=== PATIENT | female | born 2000 | race Caucasian/White ===

== ENCOUNTER 2022-08-20 00:17 | Emergency (ER) | payer BC, SELFPAY ==
--- NOTE | 2022-08-20 00:23 | ED_ITS ---
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 Pt has taken no illicit substances and has not hurt herself in any way. Pt would like to be assessed for mental health issues to put her roomates at ease. No history of suicidal ideation or attempts at suicide. She does not use alcohol. Pt sadness has been worsening tonight. Related Data Home Medications Medication Instructions Recorded Confirmed No Known Home Medications 08/20/22 08/20/22 Allergies Allergy/AdvReac Type Severity Reaction Status Date / Time No Known Drug Allergies Allergy Verified 08/20/22 00:38 Review of Systems Status of ROS: Reports: 10 or more systems reviewed and unremarkable except as noted in History and below [facility] Medical History (Updated 08/20/22 @ 00:41 by Kavin Suazo MD) Anxiety Depression Surgical History (Updated 08/20/22 @ 00:40 by Ruiz Fowler RN) No significant past surgical history Exam Narrative: Exam Narrative: EXAM GENERAL: Patient appears comfortable and well. Very emotional. EYES: No scleral icterus. ENT: Tympanic membranes and oropharynx normal. THYROID: no thyroid nodules or thyromegaly. LYMPH: No supraclavicular or cervical lymphadenopathy. SKIN: Visible skin seen during exam normal or with benign process only. EXT: No dependent lower extremity pedal edema. HEART: Regular rate and rhythm with no murmurs, rubs, or gallops. LUNGS: Clear to auscultation bilaterally with no crackles or wheezes. ABD: Soft, non tender, non distended. PSYCH: Good eye contact, speech is not pressured. Const: Vital Signs, click to edit/add: Vital Signs - 24 hr 08/20/22 00:34 Temperature 98.1 F Pulse Rate [Right Pulse Oximeter] 105 H Respiratory Rate 18 Blood Pressure [Ri ght Upper Arm] 125/84 Pulse Oximetry 99 Oxygen Delivery Me thod Room Air Course Course Hospital Course: Pt seen and examined. Mental Health consultation requested. Reevaluation(s) Reevaluation #1: Lengthy delay for DEC. Pt has no interest in harming herself and would like to follow up as an outpt. Time: 00:37 Vital Signs Vital signs: Initial Vital Signs Temperature 98.1 F 08/20/22 00:34 Temperature Source Temporal Artery Scan 08/20/22 00:34 Pulse Rate 105 H 08/20/22 00:34 Respiratory Rate 18 08/20/22 00:34 Blood Pressure 125/84 08/20/22 00:34 Blood Pressure Mean 97 08/20/22 00:34 Blood Pressure Position Sitting 08/20/22 00:34 Pulse Oximetry 99 08/20/22 00:34 Oxygen Delivery Method 08/20/22 00:34 Vital Signs Temperature 98.1 F 08/20/22 00:34 Pulse Rate 105 H 08/20/22 00:34 Respiratory Rate 18 08/20/22 00:34 Blood Pressure 125/84 08/20/22 00:34 Pulse Oximetry 99 08/20/22 00:34 Oxygen Delivery Method 08/20/22 00:34 Temperature 98.1 F 08/20/22 00:34 Pulse Rate 105 H 08/20/22 00:34 Respiratory Rate 18 08/20/22 00:34 Blood Pressure 125/84 08/20/22 00:34 Pulse Oximetry 99 08/20/22 00:34 Oxygen Delivery Method 08/20/22 00:34 MDM - Psych MDM Narrative Medical decision making narrative: Pt presents feeling sad that she has to rehome her dog. Pt not suicidal. No substance use. Pt and friend guarantee safety. They would like to go home to follow up as an outpt. I think this is reasonable as pt has no history of suicidality, is not suicidal at this time and is not impaired. Pt released to the care of her friend. Discharge Plan Discharge Clinical Impression: Depression Condition: Stable Instructions: Depression (ED) Additional Instructions: Return if symptoms worsen [facility] at [facility] Activity Level: No Restrictions Discharge Diet: Regular Prescriptions: No Action No Known Home Medications Stand Alone Forms: [employer] Info Instructions
[2022-08-20 00:34] VITALS: BP 125/84; PULSE 105; RESP 18; TEMP 36.7; O2SAT 99; BMI 22.4
--- OUTSIDE RECORDS SUMMARY | 2022-08-20 00:43 | XMS_ITS | Encounter Summary ---
:2000 Author Organization [facility] Address [address] [place] [address] Care Team Providers Name Role Phone Sandra Catalan M.D. Primary Care Provider Reason for Visit Reason Comments Annual Exam sports physical for college, track Appointment Request (Routine) - Closed Specialty Diagnoses / Procedures Referred By Contact Refer red To Contact Family Medicine Referral ID Status Reason Start Date Expiration Date Visits Requ ested Visits Authorized [id number] Closed 03/11/2020 03/11/2021 1 1 Encounter Details Date Type Department Care Team Description 05/03/2020 Comprehensive Visit Department of Linda Apple Maintenance Examination Adult (Primary Dx); Family Medicine, A, P.A.-C. Sport Comprehensive Exam; [facility], in [address] [place] Depression Major Recurrent Mild (HCC); [place], [place] Anxiety Generalized Disorder [address] [place] [id number] [place], [place] [phone] (Work) [phone] Social History Tobacco Use Types Packs/Day Years Used Date Smoking Tobacco: Never Smokeless Tobacco: Never Alcohol Use Standard Drinks/Week Comments Yes 0 (1 standard drink = 0.6 oz pure alcoho l) Alcohol Habits Answer Date Recorded How often do you have a drink containing alcohol? Monthly or less 04/05/2022 How many drinks containing alcohol do you have on a 3 or 4 04/05/2022 typical day when you are drinking? How often do you have six or more drinks on one Less than mo nthly 04/05/2022 occasion? Social Isolation Answer Date Recorded In a typical week, how many times do you More than three ollie es a week 04/05/2022 talk on the phone with family, friends, or neighbors? How often do you get together with friends Twice a week 04/05/2022 or relatives? How often do you attend protestant or More than 4 times per year 04/05/2022 buddhist services? Do you belong to any clubs or Yes 04/05/2022 organizations such as protestant groups, unions, fraternal or athletic groups, or school groups? How often do you attend meetings of the More than 4 times pe r year 04/05/2022 clubs or organizations you belong to? Are you now , , , Never 04/05/2022 , never or living with a partner? Physical Activity Answer Date Recorded On average, how many days per week do you engage in moderate to 7 days 04/05/2022 strenuous exercise (like walking fast, running, jogging, dancing, swimming, biking, or other activities that cause a light or heavy sweat)? On average, how many minutes do you engage in exercise at th is 90 min 04/05/2022 level? Stress Answer Date Recorded Do you feel stress - tense, restless, nervous, or anxious, o r Very much 04/05/2022 unable to sleep at night because your mind is troubled all the time - these days? Financial Resource Strain Answer Date Recorded How hard is it for you to pay for the very basics like Not h gina at all 04/05/2022 food, housing, medical care, and heating? Intimate Partner Violence Answer Date Recorded Within the last year, have you been afraid of your No 04/05/2022 partner or ex-partner? Within the last year, have you been humiliated or No 04/05/2022 emotionally abused in other ways by your partner or ex-partner? Within the last year, have you been kicked, hit, No 04/05/2022 slapped, or otherwise physically hurt by your partner or ex-partner? Within the last year, have you been raped or forced to Patie nt refused 04/05/2022 have any kind of sexual activity by your partner or ex-partner? Food Insecurity Answer Date Recorded Within the past 12 months, you worried that your food would Never true 04/05/2022 run out before you got money to buy more. Within the past 12 months, the food you bought just didn't N ever true 04/05/2022 last and you didn't have money to get more. Transportation Needs Answer Date Recorded In the past 12 months, has lack of transportation kept you f rom No 04/05/2022 medical appointments or from getting medications? In the past 12 months, has lack of transportation kept you f rom No 04/05/2022 meetings, work, or getting things needed for daily living? Housing Stability Answer Date Recorded In the last 12 months, was there a time when you were not ab le No 04/05/2022 to pay the mortgage or rent on time? In the last 12 months, how many places have you lived? 2 04/05/2022 In the last 12 months, was there a time when you did not hav e a No 04/05/[address] to sleep or slept in a retirement (including now)? Education Answer Date Recorded What is the highest level of school you have Some college, n o degree 04/29/2020 completed or the highest degree you have received? Sex Assigned at Date Recorded Not on file documented as of this encounter Last Filed Vital Signs Vital Sign Reading Time Taken Comments Blood Pressure 122/84 05/03/2020 3:15 PM CDT Pulse 82 05/03/2020 3:15 PM CDT Temperature 36.9 ??C (98.4 ??F) 05/03/2020 3:15 PM CDT Respiratory Rate - - Oxygen Saturation - - Inhaled Oxygen Concentration - - Weight 69.1 kg (152 lb 5.4 oz) 05/03/2020 3:15 PM CDT Height 170 cm (5' 6.93) 05/03/2020 3:15 PM CDT Body Mass Index 23.91 05/03/2020 3:15 PM CDT Body Mass Index Percentile 73.37 % 05/03/2020 3:15 PM CD T Growth Chart: [facility] (Girls, 2-20 Years) documented in this encounter Patient Instructions Patient InstructionsLinda Apple P.A.-C. - 05/03/2020 3:30 PM CDT We completed a sports physical today. You are up to date on all of your preventative care. Good luck in the Fall! documented in this encounter H&P Notes Linda Apple P.A.-C. - 05/03/2020 3:30 PM CDT SUBJECTIVE Macy Isidro is a 19 y.o. female who is here for a well child visit. History was providedby the patient. Current concerns: None. Diet: Reviewed and discussed.. Elimination: Reviewed and discussed.. Sleep Schedule: Reviewed and discussed.. School Performance: Reviewed and discussed.. The following screenings were completed: Vision PHQ-9 Total Score (max 27): 9 (05/03/20 1647) PHQ-2 Score: 2 The following portions of the patient's history were reviewed and updated as appropriate: allergies, current medications, family history, medical history, social history, surgical history, problem list, vital signs, growth curves and pre-visit questionnaires REVIEW OF SYSTEMS Constitutional: Positive for fatigue. Skin: Positive for change in mole or skin spot. Gastrointestinal: Positive for abdominal (belly) pain or cramping, constipation and diarrhea. Neurological: Positive for light-headedness, excessive daytime sleepiness and headaches. Psychiatric/Behavioral: Positive for excessive daytime sleepiness/tiredness and not being able to stop or control worrying over past two weeks. The following systems were negative: Eyes, ENT, CV, Respiratory, , Hematologic, Musculoskeletal OBJECTIVE PHYSICAL EXAM Wt 69.1 kg Ht 170 cm BMI 23.91 kg/m?? HC: - BP 122/84 (BP Location: Left arm, Patient Position: Sitting, Cuff Size: Regular) Blood pressure percentiles are not available for patients who are 18 years or older. General Appearance: Alert, interactive, well-appearing Head: Normocephalic, atraumatic Eyes: Conjunctivae clear, EOM intact, PERRL, fundi normal Ears: External ears and canals normal, TM's normal landmarks bilaterally Nose: Nares normal, mucosa normal, no drainage Mouth/Throat: Moist mucosa, no significant tonsils hypertrophy, erythema, or exudate Neck: Supple, full range of motion, no thyromegaly Chest: Good air movement bilaterally, clear to auscultation Cardiovascular: Regular rate and rhythm; normal S1 and S2; no murmurs, normal perfusion Abdomen: Soft, non-tender, non-distended, no organomegaly or masses, normal bowel sounds Musculoskeletal: 14-point general exam shows no significant asymmetry, apparent weakness, or decreased range of motion in the neck, shoulders, elbows, forearms, wrists, hands, knees, ankles or spine; hip rotation is symmetric and pain free Skin: Normal color, texture, and turgor; no lesions Lymph nodes: No significant adenopathy Neurologic: Normal tone, no focal deficits or weakness in general movements, symmetric DTR's Gait: Normal and appropriate for age ASSESSMENT / PLAN #1 Health Maintenance Examination Adult Healthy 19 y.o. female child. Development: appropriate for age. 1. Age-appropriate anticipatory guidance discussed. Educational materials provided. Health promotionand safety topics discussed. Abuse/neglect, functional status, nutrition and pain assessed. Results of screening discussed and concerns addressed. Dental referral recommended. 2. Growth parameters are noted and are appropriate for age. BMI is not above 85th percentile for ageand sex. The patient/family was counseled regardin-2-1-0 Everyday program, nutrition and physical activity. 3. Patient is up to date. No vaccines given. 4. Sports Physical completed. Cleared for 3 years. Paperwork routed to HIMs. 5. Patient's PHQ9 is 9, indicating mild recurrent major depressive disorder. ANNALISE-7 is 18, indicatingsevere generalized anxiety disorder. Patient reports that she is nervous about attending college in the fall. We did discuss the pathophysiology/etiology of depression/anxiety. We discussed the role ofSSRIs in the treatment of depression/anxiety. At this time, patient declines medication intervention. She also declines referral to therapy. The patient is nervous about proceeding with treatment for depression/anxiety, as she is concerned it may make her parents, ???mad.?? I have strongly recommended she reach out to me if she would like to pursue treatment, in the future. She denies any suicidal or homicidal ideation. Recommended prompt evaluation the emergency department, if that should occur. 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 PCP - General 04/06/20 05/03/20 [address] [id number] documented as of this encounter
--- OUTSIDE RECORDS SUMMARY | 2022-08-20 00:43 | XMS_ITS | Clinical Summary ---
:2000 Author Organization [facility] [place] [address] Care Team Providers Name Role Phone Pcp, No Primary Care Provider Unavailable Allergies Not on File Medications No known medications Active Problems No known active problems Encounters Date Type Specialty Care Team Description 06/08/2022 Orders Only Lab, [facility] 06/08/2022 Travel 06/08/2022 Orders Only Daniel Palmer MD <No scans attached> from Last 3 Months Social History Tobacco Use Types Packs/Day Years Used Date Never Smoker Smokeless Tobacco: Never Used Alcohol Use Standard Drinks/Week Comments Not Currently 0 (1 standard drink = 0.6 oz pure alcoho l) Sex Assigned at Date Recorded Not on file Obstetrics History Plan of Treatment Health Maintenance Due Date Last Done Comments HPV series for age 9-26 (1 - 2012 2-dose series) Tdap 2012 HIV for age 15-65 2016 BMI (ht and wt on same day) 2019 for age 18+ Hepatitis C screening for age 0805/12/2019 18-79 Tetanus booster 2021 COVID-19 vaccine series (4 - 11/16/2021 09/21/2021, Booster for Pfizer series) 02/09/2021, 01/19/2021 Pap test for age 21-65 2022 Influenza for age 9-49 05/31/2022 Depression screening for age 0401/05/2023 01/05/2022 12+ Meningococcal series for age Aged Out No longer eligible based 11-21 on patient's age to complete this to pic Procedures Procedure Name Priority Date/Time Associated Diagnosis Comme nts SICKLE CELL TEST Routine 06/08/2022 1:28 PM Encounter for Resu lts for this CDT sickle-cell procedure are i n screening the results section. from Last 3 Months Results SICKLE CELL TEST (06/08/2022 1:28 PM CDT) Analysis Performed At [facility] Time Signature SICKLE CELL Negative Negative 06/09/2022 [facility] TEST 10:05 AM CDT [facility] Specimen Anatomical Collection Method / Collection Time Recei eber Time (Source) Location / Volume Laterality Blood BLOOD SPECIMEN / Venipuncture / 06/08/2022 1:28 2021 1:28 Unknown Unknown PM CDT PM CDT Narrative [facility] - 06/09/2022 10:05 AM CDT This test is a screening procedure only and does not distinguish between Sickle Cell Disease (S/S) and Sickle Cell Trait (A/S ). All positive or weak positive results should be further evaluated with hemoglo bin electrophoresis. False negative results can occur with low levels of HbS (neonat es, recent transfusion, congenitally low HbS, and with Hgb levels < or = to 8 g/dL). F alse positive results may be seen with immunoglobulin interference (multiple my eloma, cryoglobulinemia). Daniel Palmer MD HEMATOLOGY Performing Organization Address City/State/ZIP Code Phon e Number [facility] [address] 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
--- OUTSIDE RECORDS SUMMARY | 2022-08-20 00:43 | XMS_ITS | Encounter Summary ---
:2000 Author Organization [facility] Address [address] [place] [address] Care Team Providers Name Role Phone Brody Mccray M.D. Primary Care Provider Reason for Visit Outpatient (Routine) - Closed Specialty Diagnoses / Procedures Referred By Contact Refer red To Contact Sports Medicine Diagnoses Strain Hamstring [facility] Marial[facility] M[facility] [address] [place] [address] Referral ID Status Reason Start Date Expiration Date Visits Requ ested Visits Authorized [id number] Closed 04/28/2019 04/27/2020 1 1 Encounter Details Date Type Department Care Team Description 04/29/2019 Comprehensive Visit Department of Andrew Dowell M .D., M.S. Strain Hamstring Sports Medicine in Judi Luther M.S., L.A.T., P.T., D.P.T. [address] [place] [phone] Initial Left [place], [place] [address] [place] [id number] Social History Tobacco Use Types Packs/Day Years Used Date Smoking Tobacco: Never Smokeless Tobacco: Never Alcohol Habits Answer Date Recorded How often [...] or relatives? How often do you attend buddhist or More than 4 times per year 04/05/2022 orthodoxy services? Do you belong to any clubs or Yes 04/05/2022 organizations such as buddhist groups, unions, fraternal or athletic groups, or [...] place to sleep or slept in a longterm (including now)? Sex Assigned at Date Recorded Not on file documented as of this encounter Consult Notes Judi Luther P.T., D.P.T., A.T.C. - 04/29/2019 3:30 PM CDT Sports Medicine Physical Therapy Evaluation and Treatment SUBJECTIVE Patient's Name: Macy sIidro Referring Provider: Andrew Dowell M.D.,* Visit Diagnosis: 1. Strain Hamstring Initial Left Reason for Referral: Left hamstring strain Onset Date: 11/28/18 Payor: [facility] / Plan: [facility] [place] / Product Type: PPO / Epic Visit Count: Visit count could not be calculated. Make sure you are using a visit which is associated with an episode. PERTINENT MEDICAL / SURGICAL HISTORY: Patient Active Problem List Diagnosis ??? Nephropathy Vesicoureteral Reflux Unilateral ??? Strain Hamstring Initial Left Past Surgical History: Procedure Laterality Date ??? PARTIAL EXCISION OF NAIL AND NAIL MATRIX N/A 09/01/2010 Excision of nail and nail matrix, partial or complete (eg, ingrown or deformed nail), for permanentremoval;.. Macy Isidro is a 18 y.o. female who presents to outpatient physical therapy for evaluation. Her symptoms consist of: 1. Left hamstring strain Overall she reports her status remains the same. History of Present Illness: in November, she had a sudden onset of a left hamstring strain during sprinting. It did bruise at the time. She finished out the season, but missed a lot of practice. She has had difficulty recovering from it. She has frequent soreness and stiffness and has not been able to return to running after stopping in January. She hopes to run at [employer] in 2019. Patient Comments: ultrasound improved the symptoms mildly, but did help it to resolve. She is still trying to participate in volleyball and basketball with minimal success. She has been unable to weight lift as well. She denies numbness and tingling. She has been doing stretches and biking. She minimal to no issues with biking. She does get some pain with that. She has to stand for 6-8 hours for work, and her hamstring will get sore with that. Her compression sleeve isn't very helpful. Pain ranges from mid belly as the primary location, too proximal too distal portions. Aggravating Factors: prolonged standing, walking, squatting, sporting activities Relieving Factors: rest, activity avoidance Previous Treatments: ice, resting, in using a compression sleeve, ultrasound Prior Level of Function: Independent Occupational Profile: Senior in near [place]; [employer] Recreational Profile: track (sprinter), basketball (all), volleyball (front row) Patient Goals: Return to running and sprinting; volleyball, basketball OBJECTIVE REVIEW OF SYSTEMS History obtained from chart and patient. Additional pertinent findings: bilateral ankle issues, right greater than left PHYSICAL EXAM Pain: Pain Assessment Pain Assessment: 0-10 Numeric Pain Intensity Scale Pain Score: 5 - Moderate pain(current; 7/10 worst; 3/10 best) Measures - Tools General Or Multi-Use Lower Extremity Functional Scale (LEFS): 34/80 Observation: No obvious bruising or edema Palpation: No defect palpable, painful along medial aspect of hamstring just distal of ischial tuberosity to knee. Also tender along the mid belly of the midportion of the thigh from 4 below gluteal fold to 4 above the knee Range of motion: Popliteal angle with hip flexed to 90 degrees : 40-45 bilaterally. Hip range in motion within normal limits and symmetric. Also has pain with end range internal and external rotation in hip flexion. Strength: Pain with resisted hip extension and resisted hamstring range. Weakness with hip abductionon left as well. Very weak with hip external rotation on left. Handheld dynamometer: Left: 24.7 and painful Right: 31.6 % symmetry: 78% Special tests: Slump positive on right, negative on left Gait: Painful, nonantalgic Functional movements: Double leg squat: Pain at approximately 90 degrees Single leg stance: Excellent balance with eyes open and eyes closed Single leg squat: Painful on left TREATMENT Treatment today consisted of: Home exercise program: (see below) Patient provided home exercise program. Patient was educated on the reasons for the exercises, demonstrated the exercises, received cueing from the physical therapist, and was provided handouts on the exercises. Patient was given verbal and tactile cues to facilitatethe appropriate motion; the patient responded well to these cues and demonstrated notable improvements. 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 She demonstrates pain with ambulation, symmetric hamstring range of motion, and decreased strength. Macy would benefit from skilled physical therapy to address above impairments and limitations. I anticipate she will be able to return to prior level of function with continued skilled physical therapy. Macy tolerated today's session well. Rehab Potential: Ms. Isidro has Good potential to achieve established physical therapy goals within the time frame outlined below, provided she actively participates in her physical therapy treatment plan and home program. Personal Factors: None Clinical Presentation: Evolving Examination elements: 1-2 Clinical Decision Making: Low: no complicating factors, 1-2 eval elements, stable clinical presentation Functional Goals and Timeframes: PT Goal #1: Patient will report greater than 75 on Lower Extremity Functional Scale PT Goal #1 Date: 08/29/19 PT Goal #2: Patient will be able to return to sprinting PT Goal #2 Date: 10/30/19 PT Goal #3: Patient will be able to return to volleyball PT Goal #3 Date: 08/29/19 PT Goal #4: Patient will demonstrate symmetric hamstring strength PT Goal #4 Date: 08/29/19 Plan Ms. Isidro was educated regarding evaluative findings, diagnosis, prognosis, potential risks and benefits of rehabilitation interventions. A collaborative effort was used to establish goals and plan ofcare. She was informed of her right to make decisions regarding her care, including refusal of examination or treatment or selection of services from another provider if desired. The treatment plan maybe progressed or modified based upon her response to treatment. Treatment Plan: Start of Plan of Care: 04/29/2019 Number of Visits:20 visits PT Duration: Up to 6 months PT Frequency: Other (Comment)(Every 2-6 weeks) Treatment interventions may include: Therapeutic exercise, Therapeutic functional activity, Gait training, Neuromuscular re-education, Manual therapy, Therapeutic modalities as needed Plan Comments: Assess patient specific functional Scale next visit. Progress strengthening through full range of motion as able. Progress towards sports specific movements as able. Patient may seek therapy closer to home if needed. Time Spent with Patient PT Evaluation (min): 30 min Therapeutic Exercise (min): 30 min Time Calculation Total Timed Units (min): 30 min Total Treatment Time (min): 60 min This note is being written using the voice recognizing software hhgregg direct. It is being editedin real time. However, there may still be occasional small grammatical errors. Judi Luther P.T., Rinku.P.T., A.T.C. documented in this encounter Plan of Treatment Not on filedocumented as of this encounter Visit Diagnoses Diagnosis Strain Hamstring Initial Left documented in this encounter Additional Health Concerns Assessment Noted Time PHQ-9 Depression Total Score: 3 05/08/2015 12:01 AM CD T documented as of this encounter Care Teams Auto Body Mechanic Relationship Specialty Start Date End Date Brody Mccray M.D. PCP - General 03/04/18 04/05/20 [address] [place] [phone] documented as of this encounter
--- OUTSIDE RECORDS SUMMARY | 2022-08-20 00:43 | XMS_ITS | Clinical Summary ---
:2000 Author Organization [facility] Address [address] [place] [address] Care Team Providers Name Role Phone Linda Apple P.A.-C. Primary Care Provider [phone] Source Comments Patient records contain information from all sites at [facility]. For routine questions regarding patient records, call [phone] during business hours, M-F 8:00 AM - 5:00 PM Central Time. Record requests for emergency care only can be directed to [phone] at any time.[facility] Allergies Active Allergy Reactions Severity Noted Date Comments Penicillin G Potassium Hives 05/28/2012 Medications Medication Sig Dispensed Refills Start Date End Date Status sertraline (ZOLOFT) Take 1 tablet (100 90 tablet 3 04/05/2022 Active 100 mg tablet mg total) by mouth daily. busPIRone (BUSPAR) Take 1 tablet (10 180 tablet 3 04/05/2022 Active 10 mg tablet mg total) by mouth 2 (two) times a day. hydrOXYzine (ATARAX) Take 1 tablet (10 360 tablet 3 04/05/2022 Active 10 mg tablet mg total) by mouth 4 (four) times a day as needed for anxiety. clindamycin-benzoyl Apply 1 application 135 g 3 05/10/2022 Active peroxide (DUAC) 1.2 topically 2 (two) %(1 % base) -5 % gel times a day. Apply to face. Active Problems Problem Noted Date Depression Major Recurrent Severe Without Psychotic Fe atures 05/03/2020 Anxiety Generalized Disorder 05/03/2020 Resolved Problems Problem Noted Date Resolved Date Adjustment Disorder Mixed Reaction 06/23/201509/11 Strain Hamstring Initial Left 04/04/2021 Encounters Date Type Specialty Care Team Description 07/31/2022 Orders Only Linda Apple P.A.-C. 07/03/2022 Orders Only Linda Apple P.A.-C. from Last 3 Months Immunizations Name Administration Dates Next Due 4vHPV (discontinued) 09/22/2015, 05/24/2015, 03/25/2015 9vHPV 09/22/2015 DTaP (Infanrix, Tripedia) 09/03/2006, 11/24/2002, 2001 , 2001, 2001 H1N1 All Forms 09/27/2009, 07/27/2009 HepA Pediatric/Adolescent 03/25/2015, 03/10/2014 HepB Pediatric/Adolescent 2001, 2001 HepB, Unspecified 2001, 2001 Hib (PRP-T) (ACTHIB, HIBERIX) 2001, 2001 Hib-HepB 06/08/2002 IPV 09/03/2006, 2001, 2001, 2001 Influenza (IM) Preservative Free 06/22/2009, 07/22/2007, 01/2006, 08/15/2005 Influenza Laiv (Nasal) (Discontinued) 07/27/2011, 07/25/2010 Influenza, Unspecified 06/22/2009, 07/22/2007, 09/03/2006, 08/15/2005 MCV4 (Menactra) 05/05/2018, 03/10/2014 MMR 09/03/2006, 05/15/2002 PCV7 (discontinued) 06/08/2002, 2001, 2001, 2001 SARS-COV-2 (COVID-19) - PFIZER (02/09/2021, 01/19/2021 years or older) Tdap 03/10/2014 SHAMAR 03/10/2014, 05/15/2002 influenza LAIV (Nasal) (2 years 07/03/2019 through 49 years) Social History Tobacco Use Types Packs/Day Years Used Date Smoking Tobacco: Never Smokeless Tobacco: Never Tobacco Cessation: Counseling Given: No Alcohol Use Standard Drinks/Week Comments Not Currently [...] or relatives? How often do you attend sikh or More than 4 times per year 04/05/2022 roman catholic services? Do you belong to any clubs or Yes 04/05/2022 organizations such as sikh groups, unions, [employer] or athletic groups, or school groups? How [...] place to sleep or slept in a correction (including now)? Education Answer Date Recorded What is the highest level of school you have Some college, n o degree 04/29/2020 completed or the highest degree you have received? Sex Assigned at Date Recorded Not on file Last Filed Vital Signs Vital Sign Reading Time Taken Comments Blood Pressure 128/72 04/05/2022 1:27 PM CDT Pulse 67 04/05/2022 1:27 PM CDT Temperature 36.4 ??C (97.5 ??F) 04/05/2022 1:27 PM CDT Respiratory Rate 16 04/04/2021 12:43 PM CDT Oxygen Saturation 96% 04/04/2021 12:43 PM CDT Inhaled Oxygen Concentration - - Weight 66.7 kg (147 lb 0.8 oz) 04/05/2022 1:27 PM CDT Height 170 cm (5' 6.93) 05/03/2020 3:15 PM CDT Body Mass Index 23.08 05/03/2020 3:15 PM CDT Plan of Treatment Health Maintenance Due Date Last Done Comments Cervical Cancer Screening 2001 Chlamydia and Gonorrhea 2001 Screening HIV Screening 2001 Hearing Screening during 2001 Well Child Visit Hepatitis C Screening 2001 1 week Well Child Check-Up 2001 1 month Well Child Check-Up 2001 2 month Well Child Check-Up 2001 4 month Well Child Check-Up 2001 6 month Well Child / 2001 Alternative Check-Up 9 month Well Child Check-Up 01/10/2002 12 month Well Child / 04/11/2002 Alternative Check-Up 15 month Well Child Check-Up 07/12/2002 18 month Well Child 10/12/2002 2 year Well Child Check-Up 04/11/2003 30 month Well Child Check-Up 10/12/2003 3 year Well Child Check-Up 04/11/2004 4 year Well Child Check-Up 04/11/2005 5 year Well Child Check-Up 04/11/2006 6 year Well Child Check-Up 04/11/2007 7 year Well Child / 04/11/2008 Alternative Check-Up 8 year Well Child Check-Up 04/11/2009 9 year Well Child Check-Up 04/11/2010 10 year Well Child Check-Up 04/11/2011 11 year Well Child Check-Up 04/11/2012 12 year Well Child Check-Up 04/11/2013 13 year Well Child Check-Up 04/11/2014 14 year Well Child Check-Up 04/11/2015 15 year Well Child Check-Up 04/11/2016 16 year Well Child Check-Up 04/11/2017 18 year Well Child Check-Up 04/11/2018 18 year Well Child Check-Up 04/11/2019 20 year Well Child Check-Up 04/11/2021 COVID-19 Vaccine (4 - 11/16/2021 09/21/2021, 02/09/2021, Booster for Pfizer series) 01/19/2021 22 year Well Child Check-Up 04/11/2022 Well Child Check-Up ([facility]) 04/11/2022 Influenza Vaccine (#1) 2022 07/03/2019, 07/27/2011, 07/25/2010, Additional history exists Depression Monitoring 08/06/2022 04/05/2022 (PHQ-9) DTaP,Tdap,and Td Vaccines (7 03/10/2024 03/10/2014, 006, - Td or Tdap) 11/24/2002, Additional history exists Hepatitis B Vaccines Completed 06/08/2002, 2001, 2001, Additional history exists Pneumococcal vaccine (0-64 Aged Out 06/08/2002, 2, No longer eligible years) 2001, Additional based on patient's age history exists to complete this topic HPV Vaccines Completed 09/22/2015, 09/22/2015, 05/24/2015, Additional history exists Meningococcal Vaccine Completed 05/05/2018, 03/10/2014 20 year Well Child Check-Up Completed 05/03/2020 Insurance Payer Benefit Plan Subscriber ID Effective Dates Phone Address Type / Group [facility] [id number] 2015-Louisa [phone] [address] [address] PPO [facility] [address] [place] [id number] [place] (Home) [place] [phone] Care Teams Wrapper Layer And Examiner Soft Work Relationship Specialty Start Date End Date Linda Apple P.A.-C. PCP - General Family Medicine 05/04/20 [address] [place] [phone]
--- OUTSIDE RECORDS SUMMARY | 2022-08-20 00:43 | XMS_ITS | Encounter Summary ---
:2000 Author Organization [facility] Address [address] [place] [address] Care Team Providers Name Role Phone Brody Mccray M.D. Primary Care Provider Reason for Visit Reason Onset Date Comments Outpatient COVID-19 Testing 03/24/2020 Encounter Details Date Type Department Care Team Description 03/24/2020 External Outreach Department of Daniel Pennington [facility] Marialuisa, Ph.D . Screening For Other in [place], [place] [address] [facility] Viral Diseases [address] [place] (COVID-19) ([place] [phone] Dx) [phone] Social History Tobacco Use Types Packs/Day Years [...] or relatives? How often do you attend baptism or More than 4 times per year 04/05/2022 mandaeism services? Do you belong to any clubs or Yes 04/05/2022 organizations such as baptism groups, unions, fraternal or athletic groups, or [...] minutes do you engage in exercise at is 90 min 04/05/2022 level? Stress Answer [...] on file documented as of this encounter Progress Notes Darlyn Dalton R.N. - 03/24/2020 10:07 AM CDT Encounter created for the drive-through COVID-19 testing. documented in this encounter Plan of Treatment Not on filedocumented as of this encounter Procedures Procedure Name Priority Date/Time Associated Diagnosis Comme nts SARS CORONAVIRUS-2 Routine 03/24/2020 10:08 AM Encounter For R esults for this RNA, V CDT Screening For Other procedur e are in Viral Diseases the results (COVID-19) section. documented in this encounter Results SARS Coronavirus-2 RNA, V Asymptomatic (03/24/2020 10:08 AM CDT) [facility] Method Time Signature SARS-CoV-2 Swab, 03/24/2020 [facility] Specimen Nasopharynx 7:45 PM CDT Source SARS CoV-2 Undetected Undetected 03/24/2020 [facility] RNA, TMA 7:45 PM CDT Comment: SARS-CoV-2 RNA absent. This result does not rule out COVID-19 in the patient, as the sensitivity of the test depends o n the timing of the specimen collection and the quality of the specim en. Result should be correlated with patient's history and clinical presentat ion. ----ADDITIONAL INFORMATION---- This test is performed using the Aptima SARS-CoV-2 assay ([employer] which has received Emergency Use Authori zation (EUA) by the U.S. Food and Drug Administration. Fact sheets for this Emergency Use Autho rization (EUA) assay can be found at the following links: For Healthcare Providers: https://www.fd a.gov/media/440998/download For Patients: https://www.fda.gov/media/ 540606/download Specimen Anatomical Collection Method Collection Time Receive d Time (Source) Location / / Volume Laterality Varies 03/24/2020 10:08 03/24/2020 2:02 (Nasopharynx) AM CDT PM CDT Daniel Pennington M.D., Ph.D. LAB MICROBIOLOGY - GENERAL ORDERABLES Performing Organization Address City/State/[facility] Phon e Number [facility]- [address] [place] [id number] [facility] [place] [address] [address] documented in this encounter Visit Diagnoses Diagnosis Encounter For Screening For Other Viral Diseases (COVID-19) - Primary documented in this encounter Additional Health Concerns Infection Onset Date Last Indicated Resolved Time COVID19 Pending 03/24/2020 03/24/2020 03/24/2020 7:45 PM CDT Assessment Noted Time PHQ-9 Depression Total Score: 3 05/08/2015 12:01 AM CD T documented as of this encounter Care Teams Wet Machine Tender Relationship Specialty Start Date End Date Brody Mccray M.D. PCP - General 03/04/18 04/05/20 [address] [place] [id number] documented as of this encounter
--- OUTSIDE RECORDS SUMMARY | 2022-08-20 00:43 | XMS_ITS | Encounter Summary ---
:2001 Author Organization [facility] Address [address] [place] [address] Care Team Providers Name Role Phone Brody Mccray M.D. Primary Care Provider Encounter Details Date Type Department Care Team Description 07/03/2019 Immunization Kathe Palomino L, L.P.N. Immunization Influenza [address] [facility] [phone] [place] [address] (Work) Social History Tobacco Use Types Packs/Day Years [...] or relatives? How often do you attend oriental orthodox or More than 4 times per year 04/05/2022 mormonism services? Do you belong to any clubs or Yes 04/05/2022 organizations such as oriental orthodox groups, unions, fraternal or athletic groups, or [...] place to sleep or slept in a penitentiary (including now)? Sex Assigned at Date Recorded Not on file documented as of this encounter Plan of Treatment Not on filedocumented as of this encounter Visit Diagnoses Diagnosis Need Vaccine Immunization Influenza documented in this encounter Additional Health Concerns Assessment Noted Time PHQ-9 Depression Total Score: 3 05/08/2015 12:01 AM CD T documented as of this encounter Care Teams Market Analyst Relationship Specialty Start Date End Date Brody Mccray M.D. PCP - General 03/04/18 04/05/20 [address] [place] [id number] documented as of this encounter
--- OUTSIDE RECORDS SUMMARY | 2022-08-20 00:43 | XMS_ITS | Encounter Summary ---
:2000 Author Organization [facility] Address [address] [place] [address] Care Team Providers Name Role Phone Linda Apple P.A.-C. Primary Care Provider [phone] Reason for Visit Reason Comments Flank Pain Encounter Details Date Type Department Care Team Description 07/07/2021 Nurse Triage Department of Tomeka Mendoza, Flank Pain Medicine, [facility], R.N. in [place], [place] [address] [facility] [address] [place] [phone] Social History Tobacco Use Types Packs/Day Years Used Date Smoking Tobacco: Never Smokeless Tobacco: Never Alcohol Use Standard Drinks/Week Comments Not Currently [...] or relatives? How often do you attend evangelical or More than 4 times per year 04/05/2022 buddhist services? Do you belong to any clubs or Yes 04/05/2022 organizations such as evangelical groups, unions, fraternal or athletic groups, or [...] place to sleep or slept in a [facility] (including now)? Education Answer Date Recorded What is the highest level of school you have Some college, n o degree 04/29/2020 completed or the highest degree you have received? Sex Assigned at Date Recorded Not on file documented as of this encounter Miscellaneous Notes Telephone Encounter - Tomeka Barnes R.N. - 07/07/2021 6:09 PM CDT Chief Complaint / Reason for Call Patient is a 21 y.o. female calling regarding Flank Pain. Assessment Concern: Patient reports she has flank pain, no fever, no chills no hematuria, recent urine culture at outside hospital with pending results Present for: 6 days Home cares tried: Has been seen at urgent care and tried making appointment with primary Calling to request: advice The recommended disposition is See a health care provider within 24 hours. Care Advice Patient/Caregiver understands and will follow care advice?: Yes, able to teach back SEE PCP WITHIN 24 HOURS: * IF OFFICE WILL BE OPEN: You need to be examined within the next 24 hours. Call your doctor (or NETWORK ACCOUNT MANAGER/PA) when the office opens and make an appointment. * IF OFFICE WILL BE CLOSED: You need to be seen within the next 24 hours. A clinic or an urgent carecenter is often a good source of care if your doctor's office is closed or you can't get an appointment. * IF PATIENT HAS NO PCP: Refer patient to a clinic or urgent care center. Also try to help caller find a PCP for future care. NOTE TO TRIAGER: * Use nurse judgment to select the most appropriate source of care. * Consider both the urgency of the patient's symptoms AND what resources may be needed to evaluate and manage the patient. CALL BACK IF: * Fever over 100.4 F (38.0 C) * You become worse. Reason for Disposition ??? MODERATE pain (e.g., interferes with normal activities or awakens from sleep) Protocols used: FLANK [id number] documented in this encounter Plan of Treatment Not on filedocumented as of this encounter Visit Diagnoses Not on filedocumented in this encounter Additional Health Concerns Assessment Noted Time PHQ-9 Depression Total Score: 10 07/06/2021 8:53 PM CD T documented as of this encounter Care Teams Port Engineer Relationship Specialty Start Date End Date Linda Apple P.A.-C. PCP - General Family Medicine 05/04/20 [address] [place] [phone] documented as of this encounter
--- OUTSIDE RECORDS SUMMARY | 2022-08-20 00:43 | XMS_ITS | Encounter Summary ---
:2000 Author Organization [facility] Address [address] [place] [address] Care Team Providers Name Role Phone Linda Apple P.A.-C. Primary Care Provider [phone] Reason for Referral Specialty Diagnoses / Procedures Referred By Contact Refer red To Contact Linda Apple P. A.-C. [facility] Region [address] [place] [phone] Referral ID Status Reason Start Date Expiration Date Visits Requ ested Visits Authorized Encounter Details Date Type Department Care Team Description 07/31/2022 Orders Only [facility] Linda Apple P.A.-C. [address] [place] [phone] (Wo rk) Social History Tobacco Use Types Packs/Day Years [...] or relatives? How often do you attend orthodoxy or More than 4 times per year 04/05/2022 taoist services? Do you belong to any clubs or Yes 04/05/2022 organizations such as orthodoxy groups, unions, fraternal or athletic groups, or [...] or slept in a penitentiary (including now)? Education Answer Date Recorded What is the highest level of school you have Some college, n o degree 04/29/2020 completed or the highest degree you have received? Sex Assigned at Date Recorded Not on file documented as of this encounter Plan of Treatment Scheduled Referrals Name Type Priority Associated Order Schedule Diagnoses Covid immunization Outpatient Referral Routine Ex pected: office visit 07/31/2022 Immuno/Booster (Approximate) , Expires: 07/31/2023 documented as of this encounter Visit Diagnoses Not on filedocumented in this encounter Additional Health Concerns Assessment Noted Time PHQ-9 Depression Total Score: 27 04/05/2022 1:24 PM CD T documented as of this encounter Care Teams Etl Manager Relationship Specialty Start Date End Date Linda Apple P.A.-C. PCP - General Family Medicine 05/04/20 [address] [place] [phone] documented as of this encounter
--- OUTSIDE RECORDS SUMMARY | 2022-08-20 00:43 | XMS_ITS | Encounter Summary ---
:2000 Author Organization [facility] Address [address] [place] [address] Care Team Providers Name Role Phone Linda Apple P.A.-C. Primary Care Provider [phone] Reason for Referral Outpatient (Routine) - Closed Specialty Diagnoses / Procedures Referred By Contact Refer red To Contact Family Medicine Linda Apple P. A.-C. [facility] [address] [place] [address] Referral ID Status Reason Start Date Expiration Date Visits Requ ested Visits Authorized [id number] Closed 02/22/2021 02/22/2022 1 1 Reason for Visit Reason Comments Depression Anxiety Appointment Request (Routine) - Closed Specialty Diagnoses / Procedures Referred By Contact Refer red To Contact Family Linda Chen P. A.-C. [address] [place] [address] Referral ID Status Reason Start Date Expiration Date Visits Requ ested Visits Authorized [id number] Closed 01/31/2021 01/31/2022 1 1 Encounter Details Date Type Department Care Team Description 02/22/2021 Office Visit Department of Linda Palacios De pression Major Recurrent Mild (HCC) (Primary Dx); Hayder Godfrey P.A.-C. [facility], in [place], [address] [place] [address] [place] [phone] [place] [phone] Social History Tobacco Use Types Packs/Day Years [...] or relatives? How often do you attend jew or More than 4 times per year 04/05/2022 mormonism services? Do you belong to any clubs or Yes 04/05/2022 organizations such as jew groups, unions, fraternal or athletic groups, or [...] place to sleep or slept in a [facility] (including now)? Education Answer Date Recorded What is the highest level of school you have Some college, n o degree 04/29/2020 completed or the highest degree you have received? Sex Assigned at Date Recorded Not on file documented as of this encounter Last Filed Vital Signs Vital Sign Reading Time Taken Comments Blood Pressure 119/78 02/22/2021 8:25 AM CDT Pulse 68 02/22/2021 8:25 AM CDT Temperature 36.4 ??C (97.5 ??F) 02/22/2021 8:25 AM CDT Respiratory Rate - - Oxygen Saturation 99% 02/22/2021 8:25 AM CDT Inhaled Oxygen Concentration - - Weight 76.5 kg (168 lb 10.4 oz) 02/22/2021 8:25 AM CDT Height - - Body Mass Index 26.47 05/03/2020 3:15 PM CDT documented in this encounter Patient Instructions Patient InstructionsLinda Apple P.A.-C. - 02/22/2021 8:45 AM CDT It was very nice meeting with you today! Here is a brief summary of the things we discussed during your visit today: ??? We are starting a medication called Zoloft. Please take 1 tablet (25 mg) daily x 10 days. After 10 days, increase to the 50 mg tablet. ??? Start by taking this medication when you wake up. If it makes you sleepy, switch to taking it before bedtime. ??? Watch for common side effects, like we talked about, including GI upset (nausea, bloating, loosestools), headaches, etc. Remember that most side effects will resolve after 7-10 days of taking the medication consistently. Therefore, please take medication for at least 10 days, before stopping due to side effects. ??? Remember that it can take 4-6 weeks before you notice any beneficial changes. Hopefully, you will notice some benefit within 2 weeks, however. ??? Please let me know if you have questions/concerns along the way. ??? Let's plan to follow up again in 4-5 weeks. documented in this encounter Progress Notes Elsa Mohr C.M.A. - 02/22/2021 8:45 AM CDT Depression screening was performed and the patient's total score was PHQ-9 Total Score (max 27): (!)22 (02/22/21 0911). This score on the screening tool indicates that further evaluation for depression is needed. The primary care provider is being notified for further evaluation and treatment options. Linda Apple P.A.-C. - 02/22/2021 8:45 AM CDT CHIEF COMPLAINT Chief Complaint Patient presents with ??? Depression ??? Anxiety SUBJECTIVE HISTORY OF PRESENT ILLNESS Macy Isidro is a pleasant 20 y.o. year old female with a history significant for MDD/GADwho presents today for evaluation of depression and anxiety. The patient has a longstanding history of depression and anxiety. In April of 2015, she was hospitalized for suicidal ideation and depression. Unfortunately, her parents were very hesitant to considerinitiation of SSRI. Therefore, her depression/anxiety was never adequately treated. In the fall, she attended her 1st year of college. This significant life change, and being away from her parents, allowed her to more closely monitor her mental health. During this time, she discovered that shetruly felt depresed/anxious. She began talking to her friends, boyfriend, and a therapist. After some difficult discussions with her family, she decided that pursuing medication treatment was importantto her mental health. Therefore, she presents for evaluation today. She reports that she has been struggling with significant sadness and depression. The patient has experienced decreased motivation, and decreased interest in activities that she once enjoyed. For example, she did participate in track at college. She found that she no longer wanted to participate, and no longer enjoyed track, and this was quite alarming to her. In addition, she has noticed her appetite has significantly increased. She finds that she is eating more to cope with her sadness. Additionally, she has been using alcohol to cope with her depression/anxiety. Usually, her mood symptoms would be worse in the evenings. Therefore, she would drink in order to be able to cope, fall asleep, and function throughout the day. Additionally, she has struggled with a significant amount of anxiety. She does endorse feeling nervous, worried, and on edge. The patient states that she has difficulty controlling worry, and also constantly feels as though something bad may happen. Occasionally, she has had p assive thoughts of /dying. However, she denies any plan. Although her family is not particularly supportive, she has many college friends, and a boyfriend who is very supportive. She does feel comfortable reaching out to these individuals in times of increased depression/anxiety. The following portions of the patient's history were reviewed and updated as appropriate: allergies,current medications, family history, medical history, social history, surgical history and problem list. REVIEW OF SYSTEMS Constitutional: Negative for fever. Eyes: Negative for visual problems. ENT: Negative for sinus congestion. Respiratory: Negative for dyspnea and wheezing. Cardiovascular: Negative for chest pain, pressure or tightness. Gastrointestinal: Negative for abdominal (belly) pain or cramping, nausea and vomiting. Neurological: Negative for headaches. All other systems reviewed and are negative. OBJECTIVE PHYSICAL EXAM BP 119/78 (BP Location: Left arm, Patient Position: Sitting, Cuff Size: Regular) Pulse 68 Temp 36.4 ??C (Temporal) Wt 76.5 kg LMP 01/14/2021 (Approximate) SpO2 99% BMI 26.47 kg/m?? Constitutional General: She is not in acute distress. Appearance: Normal appearance. She is well-developed. HENT Head: Normocephalic and atraumatic. Eyes Extraocular Movements: Extraocular movements intact. Pupils: Pupils are equal, round, and reactive to light. Cardiovascular Rate and Rhythm: Normal rate. Pulmonary Effort: No respiratory distress. Musculoskeletal General: Normal range of motion. Cervical back: Normal range of motion and neck supple. Skin General: Skin is warm and dry. Capillary Refill: Capillary refill takes less than 2 seconds. Findings: No rash. Neurological General: No focal deficit present. Mental Status: She is alert and oriented to person, place, and time. Mental status is at baseline. Cranial Nerves: No cranial nerve deficit. Psychiatric Behavior: Behavior normal. Thought Content: Thought content normal. Judgment: Judgment normal. ASSESSMENT / PLAN IMPRESSION/PLAN 1. Depression Major Recurrent Mild (HCC) 2. Anxiety Generalized Disorder ?? PHQ-9 is 22, indicating severe major depressive disorder. ?? ANNALISE-7 is 19, indicating severe generalized anxiety disorder. ?? We discussed the pathophysiology/etiology of depression/anxiety, in detail. Discussed the role ofSSRIs in the treatment of depression/anxiety. ?? Will initiate Zoloft 25 mg daily times 10 days. After 10 days, will increase to 50 mg daily. Sideeffects reviewed. Recommend she take medication consistently for at least 10 days before she stops, if side effects occur. ?? She is not interested in reestablishing with counseling/therapy, at this time. However, she will continue to think about this option. ?? Although she endorses some passive thoughts of /dying, she denies any self-harm, she denies any SI/HI. Recommend evaluation in the ED, if this should occur. Recommend she reach out to friends/boyfriend, if this should occur. ?? We will plan to follow-up in 4-5 weeks for re-evaluation, or sooner, if needed. PATIENT EDUCATION Ready to learn, no apparent learning barriers were identified; learning preferences include listening. Explained diagnosis and treatment plan; patient/child/boot liner maker expressed understanding of the content. documented in this encounter Plan of Treatment Scheduled Referrals Name Type Priority Associated Diagnoses Order [facility] Family Medicine Outpatient Referral Routine Expec jonny: office visit 03/25/2021 (clinic) (Approximate), Expires: 02/23/2024 documented as of this encounter Visit Diagnoses Diagnosis Depression Major Recurrent Mild (HCC) - Primary Anxiety Generalized Disorder documented in this encounter Additional Health Concerns Assessment Noted Time PHQ-9 Depression Total Score: 22 02/22/2021 9:11 AM CD T documented as of this encounter Care Teams Residence Supervisor Relationship Specialty Start Date End Date Linda Apple P.A.-C. PCP - General Family Medicine 05/04/20 [address] [place] [phone] documented as of this encounter
--- OUTSIDE RECORDS SUMMARY | 2022-08-20 00:43 | XMS_ITS | Encounter Summary ---
:2000 Author Organization [facility] Address [address] [place] [address] Care Team Providers Name Role Phone Linda Apple P.A.-C. Primary Care Provider [phone] Encounter Details Date Type Department Care Team Description 01/17/2021 Orders Only [facility] Sa ilene Jansen M.D. [address] [place], [place] [phone] (Wo rk) Social History Tobacco Use Types [...] or relatives? How often do you attend rastafari or More than 4 times per year 04/05/2022 christianity services? Do you belong to any clubs or Yes 04/05/2022 organizations such as rastafari groups, unions, fraternal or athletic groups, or [...] place to sleep or slept in a long-term (including now)? Education Answer Date Recorded What [...] documented as of this encounter Care Teams Dimpling Machine Operator Relationship Specialty Start Date End Date Linda Apple P.A.-C. PCP - General Family Medicine 05/04/20 [address] [place] [phone] documented as of this encounter
--- OUTSIDE RECORDS SUMMARY | 2022-08-20 00:43 | XMS_ITS | Encounter Summary ---
:2000 Author Organization [facility] Address [address] [place] [address] Care Team Providers Name Role Phone Linda Apple P.A.-C. Primary Care Provider [phone] Reason for Visit Reason Comments Communication Encounter Details Date Type Department Care Team Description 04/05/2021 Clinical Communication Department of [facility]rol [facility] Cassidy Celaya [facility], in [place], [address] [place], [place] [address] [place] [phone] [place] [address] [phone] Social History Tobacco Use Types Packs/Day Years [...] this encounter Miscellaneous Notes Telephone Encounter - Zaria Roldan L.P.N. - 04/05/2021 1:23 PM CDT Video visit should be fine for anxiety follow up/ Telephone Encounter - Darya Farooq - 04/05/2021 12:41 PM CDT Reason for Communication: Patient requesting appointment in May be a VV. Patient states that she is going to be out of town in college. It will be the only way she will be able to make it to her appointment. Current Name of Medication (if relevant): documented in this encounter Plan of Treatment Not on filedocumented as of this encounter Visit Diagnoses Not on filedocumented in this encounter Additional Health Concerns Assessment Noted Time PHQ-9 Depression Total Score: 17 04/04/2021 1:52 PM CD T documented as of this encounter Care Teams Property Insurance Agent Relationship Specialty Start Date End Date Linda Apple P.A.-C. PCP - General Family Medicine 05/04/20 [address] [place] [id number] documented as of this encounter
--- OUTSIDE RECORDS SUMMARY | 2022-08-20 00:43 | XMS_ITS | Encounter Summary ---
:2000 Author Organization [facility] Address [address] [place] [address] Care Team Providers Name Role Phone Linda Apple P.A.-C. Primary Care Provider [phone] Reason for Referral Outpatient (Routine) - Authorized Specialty Diagnoses / Procedures Referred By Contact Refer red To Contact Family Medicine Linda Apple P. A.-C. [facility] Region [address] [place] [phone] Referral ID Status Reason Start Date Expiration Date Visits V isits Requested Authorized [id number] Authorized 07/03/2022 07/02/2025 1 1 Encounter Details Date Type Department Care Team Description 07/03/2022 Orders Only [facility] [...] or relatives? How often do you attend zoroastrianism or More than 4 times per year 04/05/2022 anglican services? Do you belong to any clubs or Yes 04/05/2022 organizations such as zoroastrianism groups, unions, fraternal or athletic groups, or [...] place to sleep or slept in a fpc (including now)? Education Answer Date Recorded What is the highest level of school you have Some college, n o degree 04/29/2020 completed or the highest degree you have received? Sex Assigned at Date Recorded Not on file documented as of this encounter Plan of Treatment Scheduled Referrals Name Type Priority Associated Diagnoses Order S [facility] Family Medicine Outpatient Referral Routine Expec jonny: office visit 07/17/2022, (clinic) Expires: 12/30/2022 documented as of this encounter Visit Diagnoses Not on filedocumented in this encounter Additional Health Concerns Assessment Noted Time PHQ-9 Depression Total Score: 27 04/05/2022 1:24 PM CD T documented as of this encounter Care Teams Zinc Miner Relationship Specialty Start Date End Date Linda Apple P.ALouiseC. PCP - General Family Medicine 05/04/20 [address] [place] [phone] documented as of this encounter
--- OUTSIDE RECORDS SUMMARY | 2022-08-20 00:43 | XMS_ITS | Encounter Summary ---
:2000 Author Organization [facility] Address [address] [place] [address] Care Team Providers Name Role Phone Linda Apple P.A.-C. Primary Care Provider [phone] Reason for Visit Reason Comments Follow-up Mood Outpatient (Routine) - Closed Specialty Diagnoses / Procedures Referred By Contact Refer red To Contact Family Medicine Linda Apple P. A.-C. [facility] [address] [place] [address] Referral ID Status Reason Start Date Expiration Date Visits Requ ested Visits Authorized [id number] Closed 02/22/2021 02/22/2022 1 1 Encounter Details Date Type Department Care Team Description 04/04/2021 Office Visit Department of Family Linda Apple De pression Major Recurrent Mild (HCC) (Primary Dx); Medicine, [facility], in [place], [facility] [address] [place], [place] [address] [place] [address] [place] [phone] Social History Tobacco Use Types Packs/Day Years [...] organizations such as oriental orthodox groups, unions, fraHeyy or athletic groups, or school groups? How [...] place to sleep or slept in a [place] [facility] [place] (including now)? Education Answer Date Recorded What is the highest level of school you have Some college, n o degree 04/29/2020 completed or the highest degree you have received? Sex Assigned at Date Recorded Not on file documented as of this encounter Last Filed Vital Signs Vital Sign Reading Time Taken Comments Blood Pressure 115/80 04/04/2021 12:43 PM CDT Pulse 57 04/04/2021 12:43 PM CDT Temperature 36.1 ??C (97 ??F) 04/04/2021 12:43 PM CDT Respiratory Rate 16 04/04/2021 12:43 PM CDT Oxygen Saturation 96% 04/04/2021 12:43 PM CDT Inhaled Oxygen Concentration - - Weight 72.5 kg (159 lb 13.3 oz) 04/04/2021 12:43 PM CDT Height - - Body Mass Index 25.09 05/03/2020 3:15 PM CDT documented in this encounter Patient Instructions Patient InstructionsLinda Apple P.A.-C. - 04/04/2021 1:00 PM CDT ?? Let's try going up on the Zoloft. Increase to 1.5 tablets (75 mg) once daily. After 10 days, increase to 2 tablets (100 mg) once daily. ?? Follow up in 1 month for recheck. documented in this encounter Progress Notes Linda Apple P.A.-C. - 04/04/2021 1:00 PM CDT CHIEF COMPLAINT Chief Complaint Patient presents with ??? Follow-up Mood SUBJECTIVE HISTORY OF PRESENT ILLNESS Macy Isidro is a pleasant 20 y.o. year old female with a history significant for MDD/GADwho presents today for follow up evaluation of depression/anxiety. In January of 2021, the patient was initiated on Zoloft for concerns of depression/anxiety. She is now taking 50 mg of this medication daily. The patient has noticed some occasional nausea with the medication. However, she reports that she has recently started fitness training. Therefore, she is eating a lot more than she typically does each day. As a result, she believes that some of this could be contributing to those symptoms as well. In terms of her mood, she has noticed improvement since initiatingZoloft. The patient states that she feels more mellow and that her mood is more even. However, thereare still days in which she struggles with feelings of depression and anxiety. During these times, she notes that the medication is not working as well as it could. She continues to deny SI/HI. The following portions of the patient's history [...] and are negative. OBJECTIVE PHYSICAL EXAM BP 115/80 (BP Location: Left arm, Patient Position: Sitting, Cuff Size: Regular) Pulse (!) 57 Temp 36.1 ??C (Temporal) Resp 16 Wt 72.5 kg SpO2 96% BMI 25.09 kg/m?? Constitutional General: She is not in [...] 2. Anxiety Generalized Disorder ?? PHQ-9 is 9 indicating mild major depressive disorder. ?? ANNALISE-7 is 10 indicating moderate generalized anxiety disorder. ?? Will increase Zoloft to 75 mg daily x 10 days. Then, 100 mg daily. Possible side effects reviewed. She was encouraged to take increased dose for at least 10 days before discontinuing secondary to side effects. ?? Patient continues to deny SI/HI. Recommended prompt evaluation in the ED, if that should occur. ?? Will plan to f/u in 1 month for re-evaluation, or sooner as needed. PATIENT EDUCATION Ready to learn, no apparent learning barriers were identified; learning preferences include listening. Explained diagnosis and treatment plan; patient/child/edger runner expressed understanding of the content. documented in this encounter Plan of Treatment Not on filedocumented as of this encounter Visit Diagnoses Diagnosis Depression Major Recurrent Mild (HCC) - Primary Anxiety Generalized Disorder documented in this encounter Additional Health Concerns Assessment Noted Time PHQ-9 Depression Total Score: 17 04/04/2021 1:52 PM CD T documented as of this encounter Care Teams Tip Stretcher Relationship Specialty Start Date End Date Linda Apple P.A.-C. PCP - General Family Medicine 05/04/20 [address] [id number] documented as of this encounter
--- OUTSIDE RECORDS SUMMARY | 2022-08-20 00:43 | XMS_ITS | Encounter Summary ---
:2000 Author Organization [facility] Address [address] [place] [address] Care Team Providers Name Role Phone Brody Mccray M.D. Primary Care Provider Reason for Visit Reason Onset Date Comments Outpatient COVID-19 Testing 03/17/2020 Encounter Details Date Type Department Care Team Description 03/17/2020 External Outreach Department of Daniel Pennington [facility] Marialuisa, Ph.D . Screening For Other in [place], [place] [address] [facility] Viral Diseases [address] [place] (COVID-19) ([place] [id number] Dx) [phone] Social History Tobacco Use Types Packs/Day Years [...] or relatives? How often do you attend yarsanism or More than 4 times per year 04/05/2022 latter-day services? Do you belong to any clubs or Yes 04/05/2022 organizations such as yarsanism groups, unions, fraternal or athletic groups, or [...] documented as of this encounter Progress Notes Danitza Arellano R.N. - 03/17/2020 3:18 PM CDT Encounter created for the drive-through COVID-19 testing. documented in this encounter Plan of Treatment Not on filedocumented as of this encounter Procedures Procedure Name Priority Date/Time Associated Diagnosis Comme nts SARS CORONAVIRUS-2, Routine 03/17/2020 3:19 PM Encounter For R esults for this PCR CDT Screening For Other procedur e are in Viral Diseases the results (COVID-19) section. documented in this encounter Results SARS Coronavirus-2, PCR Asymptomatic (03/17/2020 3:19 PM CDT) [facility] Method Time Signature SARS Swab, 03/19/2020 [facility] Coronavirus-2 Nasopharynx 3:36 PM CDT Source SARS Undetected Undetected 03/19/2020 [facility] Coronavirus-2 3:36 PM CDT , PCR Comment: SARS-CoV-2 RNA absent. This result does not rule out COVID-19 in the patient, as the sensitivity of the test depends o n the timing of the specimen collection and quality of the specimen. Result should be correlated with patient's history and clinical presentat ion. ----ADDITIONAL INFORMATION---- This test was developed and its performa nce characteristics determined by [facility] in a manner co nsistent with CLIA requirements. Independent review by the U.S. Food and Drug Administration is pending. Visit the CDC website: https://www.cdc.gov/coronavirus/ ?? for the most recent guidelines on Villagomez virus testing. Fact Sheet for Healthcare Providers: (https://www.[employer].LegitTrader/it-mmfil es/ Provider_Fact_Sheet_for_[facility]_COVI D-19.pdf) Fact Sheet for Patients: (https://www.[employer]novation.LegitTrader/it-mmfil es/ Patient_Fact_Sheet_for_COVID-19.pdf) Specimen Anatomical Collection Method Collection Time Receive d Time (Source) Location / / Volume Laterality Varies 03/17/2020 3:19 PM 0 (Nasopharynx) CDT 11:17 PM CDT Daniel Pennington M.D., Ph.D. LAB MICROBIOLOGY - GENERAL ORDERABLES Performing Organization Address City/State/[facility] Code Phon e Number [facility] - [address] [place], [place] [address] [facility] [place] [address] [facility] [address] documented in this encounter Visit Diagnoses Diagnosis Encounter For Screening For Other Viral Diseases (COVID-19) - Primary documented in this encounter Additional Health Concerns Infection Onset Date Last Indicated Resolved Time COVID19 Pending 03/17/2020 03/17/2020 03/19/2020 3:37 PM CDT Assessment Noted Time PHQ-9 Depression Total Score: 3 05/08/2015 12:01 AM CD T documented as of this encounter Care Teams Supervisor Contact And Service Clerks Relationship Specialty Start Date End Date Brody Mccray M.D. PCP - General 03/04/18 04/05/[address] [place] [phone] documented as of this encounter
--- OUTSIDE RECORDS SUMMARY | 2022-08-20 00:43 | XMS_ITS | Encounter Summary ---
:2001 Author Organization [facility] Address [address] [place] [address] Care Team Providers Name Role Phone Linda Apple P.A.-C. Primary Care Provider [phone] Reason for Visit Reason Comments Anxiety Depression Encounter Details Date Type Department Care Team Description 04/05/2022 Office Visit Department of Family Linda Apple De pression Major Recurrent Severe Without Psychotic Features (HCC) (Primary Dx); Medicine, Hayder Cassidy [facility], in [place], [address] [place] [address] [address] [place], [place] [address] [address] [place] [address] [phone] Social History Tobacco Use Types Packs/Day Years [...] or relatives? How often do you attend roman catholic or More than 4 times per year 04/05/2022 anabaptism services? Do you belong to any clubs or Yes 04/05/2022 organizations such as roman catholic groups, unions, fraternal or athletic groups, or [...] ??F) 04/05/2022 1:27 PM CDT Respiratory Rate - - Oxygen Saturation - - Inhaled Oxygen Concentration - - Weight 66.7 kg (147 lb 0.8 oz) 04/05/2022 1:27 PM CDT Height - - Body Mass Index 23.08 05/03/2020 3:15 PM CDT documented in this encounter Patient Instructions Patient InstructionsLinda Apple P.A.-C. - 04/05/2022 1:43 PM CDT Continue Zoloft. Take 1 tablet (100 mg) once daily. Start Buspar. Take 1 tablet (10 mg) once daily x 10 days. After that, take 1 tablet (10 mg) twice daily. Start Hydroxyzine. Take 1 tablet (10 mg) four times daily as needed for anxiety. Watch for drowsiness/sedation. No driving or alcohol with this medication. Follow up in 1 month, or sooner, as needed. documented in this encounter Progress Notes Linda Apple P.A.-C. - 04/05/2022 1:30 PM CDT SUBJECTIVE CHIEF COMPLAINT / REASON FOR VISIT Chief Complaint Patient presents with ??? Anxiety ??? Depression HISTORY OF PRESENT ILLNESS Macy Isidro is a pleasant 21 y.o. female with a history significant for MDD/ANNALISE who presents today for evaluation of depression/anxiety. The patient has a longstanding history of depression/anxiety. She is currently prescribed Zoloft 100mg daily. In the past, the patient was self medicating with alcohol. The patient has made a significant effort to cut back on her alcohol consumption. She is no longer utilizing this as a form of treatment for her mood symptoms. Instead, she states that she has gravitated toward [employer] products. The patient is regularly drug test that her job. Therefore, she states that she is needing some form of medication therapy to help with breakthrough symptoms of depression/anxiety. At this time, she states that her anxiety is more prominent than her depression. She will occasionally find herself worrying, feeling nervous, anxious, and on edge. Oftentimes, she feels like she needssomething to calm herself down. She admits to intermittent suicidal ideation. When things are overwhelm she will experience thoughts of feeling better off . However, she has never acted on these thoughts. She often thinks of her dog, and her Muslim dequan as reasons to avoid harming herself in any way. She current denies any SI or plan. The following portions of the patient's history were reviewed and updated as appropriate: allergies,current medications, family history, medical history, social history, surgical history and problem list. REVIEW OF SYSTEMS Constitutional: - Negative for fever. Skin: - Negative for skin rash. ENT: - Negative for sinus congestion. Respiratory: - Negative for shortness of breath and wheezing. Cardiovascular: - Negative for chest pain, pressure or tightness. Gastrointestinal: - Negative for abdominal (belly) pain or cramping, nausea and vomiting. Neurological: - Negative for headaches. All other systems reviewed and are negative. OBJECTIVE VITAL SIGNS BP 128/72 (BP Location: Left arm, Patient Position: Sitting) Pulse 67 Temp 36.4 ??C (Temporal) Wt 66.7 kg LMP 03/19/2022 (Approximate) No BMI 23.08 kg/m?? PHYSICAL EXAMINATION Constitutional General: She is not in acute [...] normal. Judgment: Judgment normal. ASSESSMENT / PLAN 1. Depression Major Recurrent Severe (HCC) 3. Anxiety Generalized Disorder ?? PHQ9 is 27. GAD7 is 18. ?? We discussed options including increasing Zoloft, adding BuSpar, adding Wellbutrin, and/or addingHydroxyzine. Patient has elected to start BuSpar and Hydroxyzine. ?? Will initiate BuSpar at 10 mg BID. Instructions/side effects reviewed. ?? Will initiate Hydroxyzine 10 mg QID prn. Instructions/side effects reviewed. ?? She denies SI/HI. Denies self harm. Patient was able to verbally contract for safety today. ?? Will plan to f/u in 1 month for re-evaluation, or sooner, as needed. PATIENT EDUCATION: Ready to learn, no apparent learning barriers were identified; learning preferences include listening. Explained diagnosis and treatment plan; patient/child/supervisor reclamation expressed understanding of the content. I personally spent 30 minutes in care of the patient today. Time includes both non face to face and face to face patient care. documented in this encounter Plan of Treatment Not on filedocumented as of this encounter Visit Diagnoses Diagnosis Depression Major Recurrent Severe Withou t Psychotic Features (HCC) - Primary Anxiety Generalized Disorder documented in this encounter Additional Health Concerns Assessment Noted Time PHQ-9 Depression Total Score: 27 04/05/2022 1:24 PM CD T documented as of this encounter Care Teams Manifold Builder Relationship Specialty Start Date End Date Linda Apple P.A.-C. PCP - General Family Medicine 05/04/20 [address] [phone] documented as of this encounter
--- OUTSIDE RECORDS SUMMARY | 2022-08-20 00:43 | XMS_ITS | Encounter Summary ---
:2001 Author Organization [facility] Address [address] [place] [address] Care Team Providers Name Role Phone Linda Apple P.A.-C. Primary Care Provider [phone] Reason for Visit Reason Comments Vaginal Discharge Nausea Encounter Details Date Type Department Care Team Description 08/11/2021 Nurse Triage Department of [facility] Danitza Rivas Oh ginal Discharge; Medicine, [facility], in [facility] [phone] [place] (Work) [address] [place] [id number] Social History Tobacco Use Types Packs/Day Years [...] or relatives? How often do you attend scientology or More than 4 times per year 04/05/2022 mandaeism services? Do you belong to any clubs or Yes 04/05/2022 organizations such as scientology groups, unions, fraternal or athletic groups, or [...] this encounter Miscellaneous Notes Telephone Encounter - Danitza Rivas R.N. - 08/11/2021 8:06 PM CST Chief Complaint / Reason for Call Patient is a 21 y.o. female calling regarding Vaginal Discharge and Nausea. Assessment Concern: Patient calling about brown vaginal discharge for the last 2 days. No odor. Denies fever and abdominal pain. Patient started a new control about 1 month ago. Reports nausea and vomiting for about 1 day. Present for: 2 days- discharge, vomiting/nausea- 1 day Home cares tried: None Calling to request: Advice The recommended disposition is Home Care. Reason for Disposition ??? MILD or MODERATE vomiting (e.g., 1 - 5 times / day) ??? Using control pills Protocols used: [id number], VAGINAL BLEEDING - [id number] Care Advice Patient/Caregiver understands and will follow care advice?: Yes, able to teach back CLEAR LIQUIDS: * Try to sip small amounts (1 tablespoon or 15 ml) of liquid frequently (every 5 minutes) for 8 hours, rather than trying to drink a lot of liquid all at one time. * Sip water or a 1/2 strength sports drink (e.g., Gatorade or Powerade). * Other options: 1/2 strength flat lemon-jamul soda or nory sarmad. * After 4 hours without vomiting, increase the amount. CALL BACK IF: * Vomiting lasts more than 2 days (48 hours) * Vomit contains bile (green color) * Diarrhea lasts more than 7 days * Constant stomach pain lasting more than 2 hours * Signs of dehydration (e.g., no urination over 12 hours, very lightheaded) * You become worse. SOLID FOOD: * You may begin eating bland foods after 8 hours without vomiting. * Start with saltine crackers, white bread, rice, mashed potatoes, cereal, applesauce, etc. * You can resume a normal diet in 24-48 hours. TEST, WHEN IN DOUBT: * If there is a chance that you might be , use a urine test. * You can buy a test at the [facility]. * It works best if you test your first urine in the morning. * Call back if you are * Follow the instructions included in the package. GASTROENTEROLOGY documented in this encounter Plan of Treatment Not on filedocumented as of this encounter Visit Diagnoses Not on filedocumented in this encounter Additional Health Concerns Assessment Noted Time PHQ-9 Depression Total Score: 10 07/06/2021 8:53 PM CD T documented as of this encounter Care Teams Ski Maker Relationship Specialty Start Date End Date Linda Apple P.A.-C. PCP - General Family Medicine 05/04/20 [address] [phone] documented as of this encounter
--- OUTSIDE RECORDS SUMMARY | 2022-08-20 00:43 | XMS_ITS | Encounter Summary ---
:2001 Author Organization [facility] Address [address] [place] [address] Care Team Providers Name Role Phone Brody Mccray M.D. Primary Care Provider Reason for Visit MRI/CAT/PET Scan (Routine) - Canceled Specialty Diagnoses / Procedures Referred By Contact Refer red To Contact Radiology Diagnoses Pain Thigh Left Alfonso Jane M.D. [facility] Procedures MR Femur Left without IV Contrast RI MRI LWR EXT NONJNT WO CNTRST HC MRI LWR EXT NONJNT WO CNTRST RI MRI LWR EXT NONJNT WO CNTRST [address] [place] [id number] Referral ID Status Reason Start Date Expiration Date Visits V isits Requested Authorized [id number] Canceled 04/13/2019 04/12/2020 1 1 Encounter Details Date Type Department Care Team Description 04/28/2019 Hospital Encounter Department of Alfonso Jane (Provider: Radiology, Duane Hoyos M.D. Request) [facility], in [address] [place] [address] [place] [address] [place], [place] [phone] (Work) [phone] Social History Tobacco Use Types Packs/Day Years [...] or relatives? How often do you attend worship or More than 4 times per year 04/05/2022 buddhism services? Do you belong to any clubs or Yes 04/05/2022 organizations such as worship groups, unions, fraternal or athletic groups, or [...] place to sleep or slept in a custodial (including now)? Sex Assigned at Date Recorded Not on file documented as of this encounter Medications at Time of Discharge Medication Sig Dispensed Refills Start Date End Date fluticasone Administer 2 sprays 48 g 3 09/11/2017 080 12/2019 (for_FLONASE) 50 into each nostril mcg/actuation nasal daily. spray tretinoin (for_RETIN-A) Apply 1 application 0 05/03/2020 0.01 % gel topically at bedtime. documented as of this encounter Plan of Treatment Not on filedocumented as of this encounter Visit Diagnoses Not on filedocumented in this encounter Additional Health Concerns Assessment Noted Time PHQ-9 Depression Total Score: 3 05/08/2015 12:01 AM CD T documented as of this encounter Care Teams Microcomputer Technician Relationship Specialty Start Date End Date Brody Mccray M.D. PCP - General 03/04/18 04/05/20 [address] [phone] documented as of this encounter
--- OUTSIDE RECORDS SUMMARY | 2022-08-20 00:43 | XMS_ITS | Encounter Summary ---
:2001 Author Organization [facility] Address [address] [place] [address] Care Team Providers Name Role Phone Linda Apple P.A.-C. Primary Care Provider [phone] Encounter Details Date Type Department Care Team Description 04/17/2021 Orders Only Department of Family Linda Apple, Medicine, [facility] [address], in [place] [place], [place] [address] [place] [address] [place] [address] [phone] Social History Tobacco Use Types Packs/Day Years [...] or relatives? How often do you attend latter-day or More than 4 times per year 04/05/2022 orthodox services? Do you belong to any clubs or Yes 04/05/2022 organizations such as latter-day groups, unions, fraternal or athletic groups, or [...] place to sleep or slept in a care home (including now)? Education Answer Date Recorded What [...] documented as of this encounter Care Teams Psychodramatist Relationship Specialty Start Date End Date Linda Apple P.A.-C. PCP - General Family Medicine 05/04/20 [address] [phone] documented as of this encounter
--- OUTSIDE RECORDS SUMMARY | 2022-08-20 00:43 | XMS_ITS | Encounter Summary ---
:2000 Author Organization [facility] Address [address] [place] [id number] Care Team Providers Name Role Phone Brody Mccray M.D. Primary Care Provider Reason for Visit Outpatient (Routine) - Canceled Specialty Diagnoses / Procedures Referred By Contact Refer red To Contact Diagnoses Strain Hamstring Initial [facility] Alfonso Jane M.D. [facility] Procedures Sports Medicine PT/AT - Ongoing [address] [place] [address] [phone] Referral ID Status Reason Start Date Expiration Date Visits V isits Requested Authorized [id number] Canceled 04/29/2019 04/28/2020 99 99 Encounter Details Date Type Department Care Team Description 05/23/2019 Clinical Support Department of Alfonso Jane M.D. [address] [place] [phone] Strain Hamstring Sports Medicine in Judi Luther M.S., L.A.T., P.T., D.P.T. [address] [place] [address] [phone] Initial Left [place], [place] [address] [place] [phone] Social History Tobacco Use Types Packs/Day Years [...] or relatives? How often do you attend caodaism or More than 4 times per year 04/05/2022 christian services? Do you belong to any clubs or Yes 04/05/2022 organizations such as caodaism groups, unions, fraternal or athletic groups, or [...] place to sleep or slept in a skilled nursing (including now)? Sex Assigned at Date Recorded Not on file documented as of this encounter Progress Notes Judi Luther P.T., Rinku.P.T., A.T.C. - 05/23/2019 10:00 AM CDT Sports Medicine Physical Therapy Outpatient Treatment Note SUBJECTIVE Patient's Name: Macy Isidro Referring Provider: Alfonso Jane M.D. Visit Diagnosis: 1. Strain Hamstring Initial Left Reason for Referral: Left hamstring strain Onset Date: 11/28/18 Payor: [employer] [facility] / Plan: [facility] [place] / Product Type: PPO / No data recorded Epic Visit Count (in addition to eval): 2 Patient/Caregiver Goals: Return to running and sprinting; volleyball, basketball Macy reports: she played in a volleyball game 2 days ago. She played middle, and had no symptoms. Exercises are going well. She has done a lot of conditioning. It is a little bit sore today. The whole muscle sore, but in particular the middle spot. She has not done as many of her single leg exercises because of practice. Jogging is okay, but she thinks that is why she is more sore today, because she tried to go faster. OBJECTIVE Pain: Pain Assessment Pain Assessment: 0-10 Numeric Pain Intensity Scale Pain Score: 2 Measures - Tools Lower Extremity Functional Scale: 77/80 Patient-Specific Functional Scale Activity #1 Score: 8 Activity #2 Score: 8 Activity #3 Score: 9 Activity #4 Score: 7 Activity #2: Running Activity #3: Jumping Activity #4: Lifting Sum of Activity Scores: 32 Number of Activities: 4 Total Score: 8 Other Tests: FOTO Score Update: score changed +16 point(s) to 70; in 3 visits over 12 days Handheld dynamometer: in 90/90 in sitting Left: 24.7 Right: 24.2 % symmetry: 102% Range of motion: symmetric, lacks about 30 degrees knee extension in 90 degrees flexion Mild discomfort with isometric at end range flexion TREATMENT Treatment today consisted of: Elliptical 5 min sidelying hip external rotation at 90 degrees hip flexion single leg squat Squat with med ball toss/catch - uneven and single leg with 4# ball, each leg single leg stance in mini squat with external perturbations Slow mo running single leg jumping - very difficult, left greater than right Kicking bridge with heels on 2 thick green bands 3x20s [place]hue curls with of red band assist, concentric and eccentric, x15 [place] curls, eccentric only x10 Double leg hamstring curls, 3x10 - single leg was sore Discussed sprinting progression Fast feet x30 sec Karaoke single leg hamstring curl, 25# x10, reports last 3 reps were sore Lateral walks with red band, back and forth 5 yards x30 sec Home exercise program: ??? Prep: (at least one) o Clam shell o Bridge with november ??? Plyometrics: (1-2x/wk), do early - Double leg, uneven, work toward single leg o Fast squats o Ball toss/catch with squat o Jumping - Lunge jumps - Slow mo running ??? General Strength: (must do at least something from single leg squat variation) o Squat - add weight o Lunge o single leg squat variation - single leg squat - step ups - single leg press ??? Hamstring Strength: (do at least 2) o bridge walk outs o single leg hamstring curls with machine o Standing hamstring curls with hip flexed to 90 degrees, loop around ankle o Standing hamstring isometric with hip flexion/extension, ball in knee crease ??? 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 She demonstrated pain with ambulation, symmetric hamstring range of motion, and decreased strength. Her strength has improved and she demonstrates improved control with single leg tasks on her left side. With higher level activity, she does get some symptoms. Macy would benefit from skilled physical therapy to address above impairments and limitations. I anticipate she will be able to return to prior level of function with continued skilled physical therapy. Macy tolerated today's session well. Rehab Potential: Good Personal Factors: None Functional Goals and Timeframes: PT Goal #1: Patient will report greater than 75 on Lower Extremity Functional Scale PT Goal #1 Date: 08/29/19 PT Goal #2: Patient will be able to return to sprinting. Progressing PT Goal #2 Date: 10/30/19 PT Goal #3: Patient will be able to return to volleyball. MET PT Goal #3 Date: 08/29/19 PT Goal #4: Patient will demonstrate symmetric hamstring strength. MET PT Goal #4 Date: 08/29/19 Plan Treatment plan: Patient is on visit: 3 Treatment/Interventions: Therapeutic exercise, Therapeutic functional activity, Gait training, Neuromuscular re-education, Manual therapy, Therapeutic modalities as needed Number of outpatient visits: 20 PT Frequency: Other (Comment)(Every 2-6 weeks) PT Duration: Up to 6 months Plan: Continue with current plan Plan Comments: Gradually progress activity as tolerated. Progress back into running and cutting as symptoms allow. Patient lives far away, and will return if she needs additional assistance in progression, or has not return to full activity within 6 weeks. Next visit may trial leg press isometrics andjumping. Time Spent with Patient Therapeutic Exercise (min): 48 min Time Calculation Total Timed Units (min): 48 min Total Treatment Time (min): 48 min This note is being written using the voice recognizing software Vamosa. It is being editedin real time. However, there may still be occasional small grammatical errors. Judi Luther P.T., Jeff., ARose Marie. documented in this encounter Plan of Treatment Not on filedocumented as of this encounter Visit Diagnoses Diagnosis Strain Hamstring Initial Left documented in this encounter Additional Health Concerns Assessment Noted Time PHQ-9 Depression Total Score: 3 05/08/2015 12:01 AM CD T documented as of this encounter Care Teams Otr Driver Relationship Specialty Start Date End Date Brody Mccray M.D. PCP - General 03/04/18 04/05/20 [address] [phone] documented as of this encounter
--- OUTSIDE RECORDS SUMMARY | 2022-08-20 00:43 | XMS_ITS | Encounter Summary ---
:2000 Author Organization [facility] Address [address] [place] [address] Care Team Providers Name Role Phone Linda Apple P.A.-C. Primary Care Provider [phone] Reason for Visit Reason Comments Med Refill Encounter Details Date Type Department Care Team Description 05/09/2022 Refill Department of Family Medicine, Linda Swan P.A.-C. Med Refill [facility], in [place], [facility] [address] [place] [phone] [address] [place] [address] [phone] Social History Tobacco Use Types Packs/Day Years [...] or relatives? How often do you attend zoroastrian or More than 4 times per year 04/05/2022 orthodox services? Do you belong to any clubs or Yes 04/05/2022 organizations such as zoroastrian groups, unions, fraternal or athletic groups, or [...] documented as of this encounter Care Teams Customer Security Clerk Relationship Specialty Start Date End Date Linda Apple P.A.-C. PCP - General Family Medicine 05/04/20 [address] [phone] documented as of this encounter
--- OUTSIDE RECORDS SUMMARY | 2022-08-20 00:43 | XMS_ITS | Encounter Summary ---
:2000 Author Organization [facility] Address [address] [place] [address] Care Team Providers Name Role Phone Brody Mccray M.D. Primary Care Provider Reason for Referral Outpatient (Routine) - Closed Specialty Diagnoses / Procedures Referred By Contact Refer red To Contact Sports Medicine Diagnoses Strain Hamstring Initial Left Andrew Dowell [facility] Marialuisa, M.S. 200 [place] [address] Referral ID Status Reason Start Date Expiration Date Visits Requ ested Visits Authorized [id number] Closed 04/28/2019 04/27/2020 1 1 Reason for Visit Appointment Request (Routine) - Closed Specialty Diagnoses / Procedures Referred By Contact Refer red To Contact Sports Medicine Diagnoses Pain Leg Left Referral ID Status Reason Start Date Expiration Date Visits Requ ested Visits Authorized [id number] Closed 04/08/2019 04/07/2020 1 1 Encounter Details Date Type Department Care Team Description 04/28/2019 Comprehensive Visit Department of Alfonso Barahona Hamstring Medicine gayathri Hoyos M.D. Initial Left [place], [place] [address] [place] [address] (Primary Dx) [address] [place] [phone] Social History Tobacco Use Types Packs/Day Years [...] or relatives? How often do you attend advent or More than 4 times per year 04/05/2022 alevism services? Do you belong to any clubs or Yes 04/05/2022 organizations such as advent groups, unions, [employer] or athletic groups, or school groups? How [...] place to sleep or slept in a detention (including now)? Sex Assigned at Date Recorded Not on file documented as of this encounter Last Filed Vital Signs Vital Sign Reading Time Taken Comments Blood Pressure - - Pulse - - Temperature - - Respiratory Rate - - Oxygen Saturation - - Inhaled Oxygen Concentration - - Weight 65.8 kg (145 lb) 04/28/2019 12:43 PM CDT Height 172.7 cm (5' 8) 04/28/2019 12:43 PM CDT Body Mass Index 22.05 04/28/2019 12:43 PM CDT Body Mass Index Percentile 59.52 % 04/28/2019 12:43 PM C DT Growth Chart: CDC (Girls, 2-20 Years) documented in this encounter Consult Notes Andrew Dowell M.D., M.S. - 04/28/2019 1:00 PM CDT Pain reported: Site 1 Pain Score: 7, Pain Location: Other (Comment)(Strain Hamstring Initial), Pain Orientation: (High 7/10, Low 1/10), (04/28/19 1241 : Carl Pastrana) REASON FOR CONSULT Left posterior thigh pain, concern for hamstring injury HISTORY OF PRESENT ILLNESS 18-year-old previously healthy female who presents for initial evaluation regarding left posterior thigh pain, concern for hamstring injury. She is accompanied by her mother. Encounter supervised by Dr. Jane. 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 This past spring she was running track, particularly sprint events. In November she was running and initially was feeling some tightness in the left hamstring. She continued to run and then during 1 of her sprints felt a pop in the back of her leg. She had significant pain and was not able to bear weight for the 1st few minutes afterwards but did not require crutches at any point. She did have bruising in the posterior mid leg. She was able to continue competing for the rest of the track season but missed a lot of practice time. Her pain is still located in the posterior mid leg. There is some occasional radiation to the medial posterior knee. No numbness or tingling in the lower extremity. She does feel some weakness in the leg particularly when trying to do weightlifting activities. The pain is exacerbated by prolonged standing, walking, squatting. For treatment she has tried ice, resting, in using a compression sleeve around the leg. She also went to a chiropractor and received ultrasound treatment for roughly 2 months. She completely stopped running late January and has not been able to run since secondary to pain. She is doing some biking exercise for cardio. Is currently missing strength training time for her upcoming sports. No prior injury or trauma. The following portions of the patient's history were reviewed and updated as appropriate: allergies,current medications, family history, medical history, social history, surgical history and problem list. REVIEW OF SYSTEMS I have briefly reviewed the Review of Systems as noted on the health history form. I am only responding to those symptoms which are directly relevant to the specific indication for my consultation. I recommend the patient follow up with their primary or referring provider to pursue any other symptoms which may be of concern. OBJECTIVE PHYSICAL EXAM General: No distress Cardiac: Well perfused with no peripheral edema in the extremities Resp: non labored breathing on room air Psych: appropriate mood and affect Neuro: Gait is nonantalgic with normal heel and toe walking. Reflexes symmetric and physiologic in the lower extremities. MSK, left hamstring, knee, thigh: Inspection: No areas of bruising or deformities in the posterior thigh. Palpation: Tender to palpation throughout the midportion of the bilateral hamstrings. Mild tenderness at the semitendinosus/semimembranosus distal insertion sites, however all distal hamstring tendons are palpable at their insertions. No tenderness over the ischial tuberosity. Range of motion: Asymmetric hamstring flexibility, popliteal angle 45/60 degrees. There is also posterior thigh pain with hamstring stretching on the left. Strength: Weakness of -1 in the left hamstring muscle secondary to pain. Otherwise strength is full and symmetric in lower extremities DIAGNOSTICS X-rays of the left hip and pelvis dated 04/27 reviewed. No acute fracture dislocation, no apparent area of avulsion around the ischial tuberosity but her growth plates are still open. ASSESSMENT / PLAN #1 Clinical grade 2 left hamstring strain She has significant hamstring range of motion asymmetry and pain on the left side. We do not have concern this time for an avulsion type injury. She has not had any formal physical therapy for this injury and we feel she would greatly benefit from this. We will arrange for her to visit with a sports physical therapist here in [place] and then they can discuss possible transition to a therapist closer to [place] the future. We discussed the implication of this type of injury in particular the potentially long duration of recovery. We prepared her for the possibility of missing volleyball with the hope that we can have her recovered and improved ready for track season next year. We will have her work on progressive hamstring ROM, pain reduction, the gradual progression of hamstring strength and eccentric strengthening. Once she has similar ROM and strnegth to the contralateralside, she can progress to more rapid quick movements such as sprinting, jumping. No need for pre scheduled MRI at this time. Follow up will be as needed based on her progression with therapy. Discussed with Dr. Jane. Please see his note for further details. Patient education: The patient was ready to learn and had no apparent learning barriers. The diagnosis and treatment plans were explained and the patient expressed understanding of the content. Associated attestation - Alfonso Jane M.D. - 04/28/2019 2:10 PM CDT I evaluated the patient in conjunction with Andrew Dowell M.D. ([phone]). I participated in the macias components of the service. I agree with the findings and plan as outlined in her note from today's date. The patient is a soon to be seen year in high school who plays volleyball, basketball and short sprints in track. She is hoping to run track and college. This past track season in November she had a sudden onset of left mid posterior thigh pain during a sprint. She had some bruising around the area initially. The pain has slowly improved, but she has had difficulty recovering from this. She has frequentsoreness and stiffness in the posterior thigh and has not been able to return to running. No leg paresthesias or associated back pain. She has not had any formal rehabilitation at this point. Her clinical exam is notable for very tight hamstrings with a popliteal angle of about 50?? on the right and 65?? on the left. She had diffuse tenderness across the hamstring mid portions, especially in the medial aspect. No ischial tuberosity tenderness. Her semitendinosus, semimembranosus, and biceps femoris distal tendons were palpated and seemed intact. She had some mild weakness with resisted knee flexion on the left. There is no palpable defect in the hamstrings. I personally reviewed her left hip radiographs from April 27, 2019 showing open ischial tuberosity physis, but no sign of avulsion. ASSESSMENT/PLAN #1 Left hamstring muscle/myotendinous strain, clinical grade 2 #2 Tight hamstrings This seems to be a muscular/myotendinous injury. She has significant hamstring flexibility asymmetryat this point and already has underlying hamstring tightness. She also has some weakness. Otherwise,there is no sign of any injury that would warrant surgical intervention. We discussed that this injury can take a long time to recover from and requires it extensive rehabilitation, especially in lightof her range of motion and strength deficits. I think it will be unlikely that she will be able to return to volleyball this fall. We will have her meet with 1 of our physical therapists for instruction on a program to include progressive hamstring and core strengthening to include hamstring eccentric strengthening as tolerated. She may need some dedicated hamstring stretching to help equalize her flexibility. Once her range of motion and strength has improved to near the uninjured side, I think she can begin focusing on more returning to athletic movements like running and jumping. Until then, we discussed other cross-trainingmethods to maintain/improve her fitness. She can discuss details of physical therapy. I would be glad to see her back as needed if she has trouble progressing. If so, we can consider an MRI scan to better define her injury. documented in this encounter Plan of Treatment Scheduled Referrals Name Type Priority Associated Diagnoses Order [facility] Sports Medicine - Outpatient Referral Routine Strain Hamstring Expected: PT/AT Eval and Initial Left 04/28/2019 Treat (Approximate), Expires: 04/28/2020 documented as of this encounter Visit Diagnoses Diagnosis Strain Hamstring Initial Left - Primary documented in this encounter Additional Health Concerns Assessment Noted Time PHQ-9 Depression Total Score: 3 05/08/2015 12:01 AM CD T documented as of this encounter Care Teams Manager Of Program Relationship Specialty Start Date End Date Brody Mccray M.D. PCP - General 03/04/18 04/05/20 [address] [phone] documented as of this encounter
--- OUTSIDE RECORDS SUMMARY | 2022-08-20 00:43 | XMS_ITS | Encounter Summary ---
:2001 Author Organization [facility] Address [address] [place] [phone] Care Team Providers Name Role Phone Brody Mccray M.D. Primary Care Provider Reason for Visit Outpatient (Routine) - Canceled Specialty Diagnoses / Procedures Referred By Contact Refer red To Contact Diagnoses Strain Hamstring Initial Left Alfonso Jane M.D. [facility] Procedures Sports Medicine PT/AT - Ongoing [address] [place] [phone] Referral ID Status Reason Start Date Expiration Date Visits V isits Requested Authorized [id number] Canceled 04/29/2019 04/28/2020 99 99 Encounter Details Date Type Department Care Team Description 05/11/2019 Clinical Support Department of Alfonso Jane M.D. [address] [place] [phone] Strain Hamstring Sports Medicine in Judi Luther M.S., L.A.T., P.T., D.P.T. [address] [place] [phone] Initial Left [place], [place] [address] [place] [phone] Social History Tobacco Use Types Packs/Day Years [...] or relatives? How often do you attend mormonism or More than 4 times per year 04/05/2022 judaism services? Do you belong to any clubs or Yes 04/05/2022 organizations such as mormonism groups, unions, fraternal or athletic groups, or [...] or slept in a long-term (including now)? Sex Assigned at Date Recorded Not on file documented as of this encounter Progress Notes Judi Luther P.T., Rinku.P.T., A.T.C. - 05/11/2019 12:00 PM CDT Sports Medicine Physical Therapy Outpatient Treatment Note SUBJECTIVE Patient's Name: Macy Isidro Referring Provider: Alfonso Jane M.D. Visit Diagnosis: 1. Strain Hamstring Initial Left Reason for Referral: Left hamstring strain Onset Date: 11/28/18 Payor: [employer] [facility] / Plan: [facility] [place] / Product Type: PPO / No data recorded Epic Visit Count (in addition to eval): 1 Patient/Caregiver Goals: Return to running and sprinting; volleyball, basketball Macy reports: Hamstring is doing better. Is able to work yesterday without pain. She did have it wrapped yesterday. She only wraps it if she is going to walk a long distance. Exercises are intermittently challenging. She can do hamstring curls, 20 reps, pink, it gets a little sore. Volleyball startstoday. She doesn't plan to jump. OBJECTIVE Pain: Pain Assessment Pain Assessment: 0-10 Numeric Pain Intensity Scale Pain Score: 2 Measures - Tools Patient-Specific Functional Scale Activity #1 Score: 3 Activity #2 Score: Unable to perform activity Activity #3 Score: 3 Activity #1: Volleyball Activity #2: Running Activity #3: Jumping Sum of Activity Scores: 6 Number of Activities: 3 Total Score: 2 Other Tests: FOTO Score: 54; Expected discharge score of 73, in 12 visits over 63 days TREATMENT Treatment today consisted of: Bike 5 min Bridge with november Bridge walk out Squat Single leg squat with external rotation isometric and cueing for hips level Hip hikes Single leg Malian lifts Single leg hamstring curls, 15# x10 Hamstring curls with ball too challenging Step ups on 12 box Walking lunges Lunges with med ball twist, 6# Double leg fast squats Double leg squat with ball toss/catch, 6# Uneven squat with ball toss/catch, 4# Discussed lunge jumps MVP jump, single leg, 0.5-1 band in back, good control Slow mo running - very difficult to control Standing hamstring curls with hip flexed to 90 degrees, loop around ankle Standing hamstring isometric with hip flexion/extension, ball in knee crease Discussed return to running Home exercise program: Updated today, handout provided ??? 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 She demonstrates pain with ambulation, symmetric hamstring range of motion, and decreased strength. Mayc would benefit from skilled physical therapy to address above impairments and limitations. I anticipate she will be able to return to prior level of function with continued skilled physical therapy. Macy tolerated today's session well. She demonstrates substantially improved function today, including tolerance to light jumping. Rehab Potential: Good Personal Factors: None Functional [...] strength PT Goal #4 Date: 08/29/19 Plan Treatment plan: Patient is on visit: 2 Treatment/Interventions: Therapeutic exercise, Therapeutic functional activity, Gait training, Neuromuscular re-education, Manual therapy, Therapeutic modalities as needed Number of outpatient visits: 20 PT Frequency: Other (Comment)(Every 2-6 weeks) PT Duration: Up to 6 months Plan: Continue with current plan Plan Comments: Progress strengthening through full range of motion as able. Progress towards sports specific movements as able. Patient may seek therapy closer to home if needed. Next visit may trial leg press isometrics and jumping. Can gradually begin the volleyball movements as able and pain free. Time Spent with Patient Therapeutic Exercise (min): 68 min Time Calculation Total Timed Units (min): 68 min Total Treatment Time (min): 68 min This note is being written using the voice recognizing software fluency direct. It is being editedin real time. [...] documented as of this encounter Care Teams Head Miller Relationship Specialty Start Date End Date rBody Mccray M.D. PCP - General 03/04/18 04/05/20 [address] [phone] documented as of this encounter
--- OUTSIDE RECORDS SUMMARY | 2022-08-20 00:43 | XMS_ITS | Encounter Summary ---
:2001 Author Organization [facility] Address [address] [place] [address] Care Team Providers Name Role Phone Linda Apple P.A.-C. Primary Care Provider [phone] Reason for Referral Specialty Diagnoses / Procedures Referred By Contact Refer red To Contact Linda Apple P. A.-C. [facility] Region [address] [phone] Referral ID Status Reason Start Date Expiration Date Visits Requ ested Visits Authorized IAL NEEDS BUS DRIVER Encounter Details Date Type Department Care Team Description 08/28/2021 Orders Only [facility] [...] or relatives? How often do you attend spiritism or More than 4 times per year 04/05/2022 faith services? Do you belong to any clubs or Yes 04/05/2022 organizations such as spiritism groups, unions, fraternal or athletic groups, or [...] or slept in a detention (including now)? Education Answer Date Recorded What is the highest level of school you have Some college, n o degree 04/29/2020 completed or the highest degree you have received? Sex Assigned at Date Recorded Not on file documented as of this encounter Plan of Treatment Scheduled Referrals Name Type Priority Associated Order Schedule Diagnoses Covid immunization Outpatient Referral Routine Ex pected: office visit Booster 021 (Approximate), Expires: 08/28/2022 documented as of this encounter Visit Diagnoses Not on filedocumented in this encounter Additional Health Concerns Assessment Noted Time PHQ-9 Depression Total Score: 10 07/06/2021 8:53 PM CD T documented as of this encounter Care Teams Cabinet Finisher Relationship Specialty Start Date End Date Linda Apple P.A.-C. PCP - General Family Medicine 05/04/20 [address] [phone] documented as of this encounter
--- OUTSIDE RECORDS SUMMARY | 2022-08-20 00:44 | XMS_ITS | Encounter Summary ---
:2001 Author Organization [facility] Address [address] [place] [address] Care Team Providers Name Role Phone Unavailable Primary Care Provider Unavailable Encounter Details Date Type Department Care Team Description 05/10/2015 Hospital Encounter HX [facility] Bora Cox, LeslieOAzul [address] [place], [place] [phone] (Wo rk) Social History Tobacco Use Types Packs/Day Years Used Date Smoking Tobacco: Never Assessed Alcohol Habits Answer Date Recorded How often [...] place to sleep or slept in a chcf (including now)? Sex Assigned at Date Recorded Not on file documented as of this encounter Last Filed Vital Signs Vital Sign Reading Time Taken Comments Blood Pressure - - Pulse - - Temperature - - Respiratory Rate - - Oxygen Saturation - - Inhaled Oxygen Concentration - - Weight 58.2 kg (128 lb 4.9 oz) 05/10/2015 9:21 AM CDT Height 170.5 cm (5' 7.13) 05/10/2015 9:21 AM CDT Body Mass Index 20.02 05/10/2015 9:21 AM CDT Body Mass Index Percentile 58.95 % 05/10/2015 9:21 AM CD T Growth Chart: [facility] (Girls, 2-20 Years) documented in this encounter Miscellaneous Notes Miscellaneous - Tom Cox D.O. - 05/10/2015 10:23 AM CDT Ambulatory Patient Summary [address] [address] [place], [place] [phone] Visit Information Name: MALCÉSAR MACVIPUL ZULUAGA [facility] Number: [id number] Current Date: 05/10/2015 10:23:10 Physicians Attending Provider: TOM COX DO Primary Care Provider: CHANEL ESPITIA MD JIMMY ISIDRO has been given the following list of follow-up instructions, medication list, and patient education materials: Follow-up Instructions Your Medications Here is a list of your medications. It is important to take your medications as directed. Use a pillbox or chart to help remind you to take your medications. Please let your doctor or nurse know if you have problems taking your medications. Medication/Strength How to Take Indications/Special Instructions/Comments/Notes for Patient Medication Changes/Routing tretinoin topical (tretinoin 0.01% topical gel) 1 sarabjit, Topical, once a day (at bedtime) Stop Taking the Following Medications: Medication list as of 05-10-15 10:23 Attention: If you have any medications at home that are not on this list, DO NOT take them until youcontact your provider for clarification. Give a copy of your medication list to your primary care provider. Update your medication list any time medications or doses are changed and carry your medication list at all times in case of emergency. Electronically Signed By: TOM COX DO Signed On:10-MAY-2015 10:22:48 Your Allergies & Intolerances Substance Reaction Symptoms Category Comments penicillin G potassium hives Drug Your Problem List Problem Status Onset Comments Routine general medical exam Active Your Upcoming Appointments Date Time Location Provider 05/24/2015 13:00 [facility] Family Med [facility] Family Med Nurse Han Garcia 06/23/2015 07:45 [facility] Psych Ofelia Aguilar 09/21/2015 15:00 [facility] Nurse Han Garcia Attention: Contact your local Clinic if further appointment detail needed. Consider Using Patient Online Services Patient Online Services is a secure online and Mobile application that lets you: ?? View lab and test results ?? View portions of your medical record including clinical notes, immunizations and discharge summaries ?? Request an appointment or medication refill ?? Review your appointment schedule ?? Send secure messages to your care team Its easy to create an account if you dont have one. Go to [email or web address] and click on Create Your Account. Then, follow the directions to complete the online form. Youll be asked for your [facility] number which you can find at the top of this document. Your Goals/Additional instructions: Source: [facility] POWERCHART Document Id: [id number] Miscellaneous - Tom Cox D.O. - 05/10/2015 10:23 AM CDT Ambulatory Discharge Medication List [address] [place], [place] [phone] Visit Information Name: JIMMY ISIDRO [facility] Number: [id number] Visit Date: 05/10/2015 10:23:09 Attending Provider: TOM COX DO Primary Care Provider: CHANEL ESPITIA MD JIMMY ISIDRO has been given the following list of medications: Your Medications It is important to take your medications as directed. Use a pill box or chart to help remind you to take your medications. Please let your doctor or nurse know if you have problems taking your medications. Medication/Strength How to Take Indications/Special Instructions/Comments/Notes for Patient Medication Changes/Routing tretinoin topical (tretinoin 0.01% topical gel) 1 sarabjit, Topical, once a day (at bedtime) Stop Taking the Following Medications: Medication list as of 05-10-15 10:23 Attention: If you have any medications at home that are not on this list, DO NOT take them until youcontact your provider for clarification. Give a copy of your medication list to your primary care provider. Update your medication list any time medications or doses are changed and carry your medication list at all times in case of emergency. Electronically Signed By: TOM COX DO Signed On:10-MAY-2015 10:22:48 Additional Information: Source: [facility] POWERCHART Document Id: [id number] Miscellaneous - Lashonda Moncada, R.N. - 05/10/2015 9:21 AM CDT Pediatric Grease Worker Intake/History Pediatric Grease Worker Intake/History Entered On: 05/10/2015 9:23 CDT Performed On: 05/10/2015 9:21 CDT by LASHONDA MONCADA process expert Temperature Core : 37.2 DegC(Converted to: 99.0 DegF) Peripheral Pulse Rate : 103 /min (HI) Systolic Blood Pressure : 85 mmHg (<LLOW) Diastolic Blood Pressure : 64 mmHg NIBP Mean : 71 mmHg BP Location : Right upper extremity Blood Pressure Cuff Size : Regular Height : 170.5 cm(Converted to: 5 ft 7 inch(es), 67 inch(es)) Actual Weight : 58.2 kg(Converted to: 128 lb 5 oz) Weight Source : Standing scale Dosing Weight Clinic : 58.2 kg Clinic BSA : 1.66 Body Mass Index : 20.02 kg/m2 LASHONDA MONCADA RN - 05/10/2015 9:21 CDT General Info Accompanied By : Mother Languages : Thai Is Patient Female and 13-50 no hysterectomy : Yes Status : Patient denies Are you ? : No LASHONDA MONCADA RN - 05/10/2015 9:21 CDT Subjective Pain Symptoms : No LASHONDA MONCADA RN - 05/10/2015 9:21 CDT Dependent Habits Tobacco Use/Currently Using : No Smoking Status : Never smoker Alcohol Use : No LASHONDA MONCADA RN - 05/10/2015 9:21 CDT Caffeine Use Grid Caffeine Use : Current Type : Soft drinks Frequency : Occasionally LASHONDA MONCADA RN - 05/10/2015 9:21 CDT Recreational Drug Use Grid Drug Use : None LASHONDA MONCADA RN - 05/10/2015 9:21 CDT Source: [employer] Document Id: [id number] CDT!35 documented in this encounter Plan of Treatment Not on filedocumented as of this encounter Visit Diagnoses Not on filedocumented in this encounter Additional Health Concerns Assessment Noted Time PHQ-9 Depression Total Score: 3 05/08/2015 12:01 AM CD T documented as of this encounter
--- OUTSIDE RECORDS SUMMARY | 2022-08-20 00:44 | XMS_ITS | Encounter Summary ---
:2001 Author Organization [facility] Address [address] [place] [address] Care Team Providers Name Role Phone Clari Bone M.D. Primary Care Provider Reason for Visit Reason Comments Pain right ankle sports injury / sharp pains rates them a 8 Injury Appointment Request (Routine) - Closed Specialty Diagnoses / Procedures Referred By Contact Refer red To Contact Podiatry Referral ID Status Reason Start Date Expiration Date Visits Requ ested Visits Authorized [id number] Closed 11/29/2017 05/28/2018 1 Encounter Details Date Type Department Care Team Description 12/02/2017 Office Visit Department of Jean-Pierre Mtz Initial Orthopedic Surgery in L, D.P.M. Right (Primary Dx) [place], [place] [address] [address] [place] [phone] Social History Tobacco Use Types Packs/Day Years [...] or relatives? How often do you attend restorationist or More than 4 times per year 04/05/2022 buddhism services? Do you belong to any clubs or Yes 04/05/2022 organizations such as restorationist groups, unions, fraternal or athletic groups, or [...] documented as of this encounter Progress Notes Jean-Pierre Mtz D.P.M. - 12/02/2017 2:00 PM CST CHIEF COMPLAINT/REASON FOR VISIT Chief Complaint Patient presents with ??? Right Ankle - Injury ??? Pain right ankle sports injury / sharp pains rates them a 8 HISTORY OF PRESENT ILLNESS Macy is a 17 y.o. female who presents for evaluation of right ankle pain. Patient states that has been painful for about a month she does participate basketball does not remember a specific injury but states she has ???rolled her ankle on ???on several occasions. The following portions of the patient's history were reviewed and updated as appropriate: allergies,current medications, family history, medical history, social history, surgical history and problem list as of 12/03/2017 ROS: Hepatic - negative, Constitutional - negative, Integumentary - negative, GI - negative, Musculoskeletal - see HPI PHYSICAL EXAMINATION: Healthy 61-year-old female meds and allergies reviewed pulses are readily palpable her growth present to the digits slight swelling over the lateral fibula no ecchymosis ankle is otherwise stable in the mortise there may be slight medial to lateral subluxation when compared to the contralateral side th ere is pain with inversion and inversion and plantar flexion and range of motion over the anterior talofibular ligament no pain with palpation of the fibula or posterior fibular LABORATORY/RADIOLOGY None IMPRESSION/REPORT #1 Sprain Ankle Initial Right PLAN: Range of motion proprioception exercises demonstrated patient will get an F 8 ankle support will follow-up again if she continues to have problems HT LOSS CONSULTANT documented in this encounter Plan of Treatment Not on filedocumented as of this encounter Visit Diagnoses Diagnosis Sprain Ankle Initial Right - Primary documented in this encounter Additional Health Concerns Assessment Noted Time PHQ-9 Depression Total Score: 3 05/08/2015 12:01 AM CD T documented as of this encounter Care Teams Forklift Supervisor Relationship Specialty Start Date End Date Clari Bone M.D. PCP - General 03/14/17 03/03/[address] [place] [phone] documented as of this encounter
--- OUTSIDE RECORDS SUMMARY | 2022-08-20 00:44 | XMS_ITS | Encounter Summary ---
:[address] [facility] Address [address] [place] [address] Care Team Providers Name Role Phone Clari Bone M.D. Primary Care Provider Encounter Details Date Type Department Care Team Description 06/12/2017 Hospital Encounter HX NO MAPPING Clari Juárez, ANTOLIN , C.N.P., R.N. [address] [facility] [place], [place] [phone] (Wo rk) Social History Tobacco Use Types Packs/Day Years Used Date Smoking Tobacco: Never Alcohol Habits Answer Date Recorded [...] or relatives? How often do you attend hinduism or More than 4 times per year 04/05/2022 mormon services? Do you belong to any clubs or Yes 04/05/2022 organizations such as hinduism groups, unions, fraternal or athletic groups, or [...] place to sleep or slept in a nursing home (including now)? Sex Assigned at Date Recorded Not on file documented as of this encounter Medications at Time of Discharge Medication Sig Dispensed Refills Start Date End Date tretinoin Apply 1 application 0 10/16/201605/03 (for_RETIN-A) 0.01 % topically at bedtime. gel documented as of this encounter Progress Notes Clari Juárez C.N.P., R.N. - 06/12/2017 3:53 PM CDT [id number] HISTORY OF PRESENT ILLNESS Macy is a pleasant 17-year-old female that comes in with Mom chandrika. Macy reports of left ear pain. Rating the pain in the ear about a 2 of 10 with some muffled hearing. She has had no drainage ordischarge from the ear. The patient does have some seasonal allergies right now. She is not currently taking any medication for that. Patient was seen on 05/21/2017 and treated for left otitis media with Omnicef which did clear the ear as far as she was not having any pain or discomfort. No hearing deficits, but over the last couple of days that pain has come back and the same with that muffled-type hearing. Patient has not had any fever or chills. Denies any runny nose or stuffy nose, just some postnasal drip. No sore throat or neck stiffness. No rash. No cough or cold symptoms. She has not had a strong history of ear infections in the past, mom states. PHYSICAL EXAMINATION VITAL SIGNS: Temp 37.1. GENERAL: She is well nourished, hydrated, no acute distress. SKIN: Generally warm and dry with good turgor. HEENT: Eyes are clear. Conjunctivae pink. Sclerae not injected. Ears: Ear canals are clear. The right tympanic membrane is pearly tian with no evidence of infection. The left tympanic membrane is erythematous with some slight bulge to it. Nasal mucosa is erythematous and congested. Oropharynx without redness, lesion, or exudate. Evidence of postnasal drip. NECK: Supple with shotty nodes in the right and left anterior cervical chain. HEART: Regular rate and rhythm. LUNGS: Clear bilaterally. IMPRESSION/REPORT/PLAN Left otitis media. PLAN: Will treat with Omnicef 2 times a day x7 days. Advised to poultry picker an antihistamine allergy medication to treat for some of that fluid behind the ears and for symptoms. Tylenol or ibuprofen as needed for pain. If symptoms are not improving with treatment or symptoms persist, she needs to follow up with Primary Care or with ENT. Patient and mom verbalize understanding. They are in agreement with this plan. Discharge information given and visit was concluded. Clari Juárez R.N., Davian.Tami/dalton Electronically Signed By: CLARI JUÁREZ CNP On: 06/13/2017 08:00 AM Source: [facility] [id number] Document Id: [id number] documented in this encounter Miscellaneous Notes Miscellaneous - Clari Juárez C.N.P., R.N. - 06/12/2017 7:06 PM CDT Pediatric Alarm Signaler Intake/History Pediatric Alarm Signaler Intake/History Entered On: 06/12/2017 19:07 CDT Performed On: 06/12/2017 19:06 CDT by CLARI JUÁREZ CNP Intake Chief Complaint : Left ear pain. Onset of Symptoms : 2-3 days Ambulatory Intake Additional Information : Completed a 10 day course of Omnicef thst started 05/21/17for left otitis media Temperature Core : 37.1 DegC(Converted to: 98.8 DegF) CLARI JUÁREZ CNP - 06/12/2017 19:06 CDT General Info Mode of Arrival : Ambulatory Present in Room During Exam/Procedure : Police Information Given By : Patient, Mother Languages : Greek Is Patient Female and 13-50 no hysterectomy : Yes Status : Patient denies Are you ? : No CLARI JUÁREZ CNP - 06/12/2017 19:06 CDT Subjective Pain Symptoms : Yes CLARI JUÁREZ CNP - 06/12/2017 19:06 CDT Pain Scale Pain Scale Verbal 0-10 : Open CLARI JUÁREZ [facility] - 06/12/2017 19:06 CDT Pain Pain Assessment Grid Pain 1 Location : Ear (Comment: Left ear pain 2 of 10. No otcs used. [CLARI JUÁREZ Belia [facility] - 06/12/2017 19:06 CDT] ) CLARI JUÁREZ [facility] - 06/12/2017 19:06 CDT Dependent Habits Smoking Status : Never smoker Tobacco 2A : No Tobacco Use/Currently Using : No Tobacco Use/Last 30 Days : No Tobacco Use/Last 12 months : No CLARI JUÁREZ [facility] - 06/12/2017 19:06 CDT Caffeine Use Grid Caffeine Use : Current Type : Soft drinks Frequency : Occasionally CLARI JUÁREZ [facility] - 06/12/2017 19:06 CDT Recreational Drug Use Grid Drug Use : None CLARI JUÁREZ [facility] - 06/12/2017 19:06 CDT Source: [employer] Document Id: [id number]!36 documented in this encounter Plan of Treatment Not on filedocumented as of this encounter Visit Diagnoses Not on filedocumented in this encounter Additional Health Concerns Assessment Noted Time PHQ-9 Depression Total Score: 3 05/08/2015 12:01 AM CD T documented as of this encounter Care Teams Data Capture Clerk Relationship Specialty Start Date End Date Clari Bone M.D. PCP - General 03/14/17 03/03/[address] [place] [phone] documented as of this encounter
--- OUTSIDE RECORDS SUMMARY | 2022-08-20 00:44 | XMS_ITS | Encounter Summary ---
:2000 Author Organization [facility] Address [address] [place] [address] Care Team Providers Name Role Phone Brody Mccray M.D. Primary Care Provider Reason for Visit Reason Comments Sports Physical Encounter Details Date Type Department Care Team Description 05/05/2018 Office Visit [facility] Andreia Hampton Sport Comprehensive Exam (Primary Dx); Care at [facility] in [place] Need Vaccine Immunization Meningococcal [place], [place] [address] [place] [phone] Social History Tobacco Use Types Packs/Day Years [...] or relatives? How often do you attend jain or More than 4 times per year 04/05/2022 baptism services? Do you belong to any clubs or Yes 04/05/2022 organizations such as jain groups, unions, fraternal or athletic groups, or [...] place to sleep or slept in a snf (including now)? Sex Assigned at Date Recorded Not on file documented as of this encounter Last Filed Vital Signs Vital Sign Reading Time Taken Comments Blood Pressure 115/65 05/05/2018 2:28 PM CDT Pulse 78 05/05/2018 2:28 PM CDT Temperature 36.6 ??C (97.9 ??F) 05/05/2018 2:28 PM CDT Respiratory Rate 18 05/05/2018 2:28 PM CDT Oxygen Saturation 100% 05/05/2018 2:28 PM CDT Inhaled Oxygen Concentration - - Weight 66.8 kg (147 lb 6 oz) 05/05/2018 2:28 PM CDT Height 171.5 cm (5' 7.5) 05/05/2018 2:28 PM CDT Body Mass Index 22.74 05/05/2018 2:28 PM CDT Body Mass Index Percentile 70.06 % 05/05/2018 2:28 PM CD T Growth Chart: CDC (Girls, 2-20 Years) documented in this encounter Progress Notes Andreia Hampton P.A.-C. - 05/05/2018 2:30 PM CDT CHIEF COMPLAINT/REASON FOR VISIT Sports Physical HISTORY OF PRESENT ILLNESS Macy Isidro is a 17 y.o. female presenting to the [facility] clinic for a sports participation physical. Paperwork has been completed and signed by the patient and their guardian. All paperwork has been reviewed with the patient and their guardian during the visit. Please see scanned documents for details. SYSTEMS REVIEW Complete review of systems updated with the patient and their parent. Please see scanned sports physical documentation for details. Vitals: 05/05/18 1428 BP: 115/65 Pulse: 78 Resp: 18 Temp: 36.6 ??C SpO2: 100% PHYSICAL EXAMINATION Please see scanned sports physical documentation for details of physical exam. #1 Sport Comprehensive Exam Patient is cleared for full participation sports without restriction. Reviewed the importance of safety gear and materials during sporting activities. Reviewed the patient's immunization record and patient is up-to-date on required vaccinations. She is due for the 2nd of the MCV4 vaccines. Although the patient was quite fearful, the vaccine was administered the left deltoid without complication. Please see immunization record for detail regarding lot number an expiration date. Encouraged to receive an influenza vaccine when available. Review general lifestyle, safety, and health counseling with thepatient and parent. Follow up as needed with questions, concerns, worsening symptoms, or problems. Patient education reviewed and given to the patient and their parent regarding diagnosis, and they areunderstanding and agreeable with treatment plan. documented in this encounter Plan of Treatment Not on filedocumented as of this encounter Visit Diagnoses Diagnosis Sport Comprehensive Exam - Primary Need Vaccine Immunization Meningococcal documented in this encounter Additional Health Concerns Assessment Noted Time PHQ-9 Depression Total Score: 3 05/08/2015 12:01 AM CD T documented as of this encounter Care Teams Science Intern Relationship Specialty Start Date End Date Brody Mccray M.D. PCP - General 03/04/18 04/05/20 [address] [place] [id number] documented as of this encounter
--- OUTSIDE RECORDS SUMMARY | 2022-08-20 00:44 | XMS_ITS | Encounter Summary ---
:2000 Author Organization [facility] Address [address] [place] [address] Care Team Providers Name Role Phone Clari Bone M.D. Primary Care Provider Reason for Visit Reason Comments Communication Encounter Details Date Type Department Care Team Description 11/29/2017 Clinical Communication Department of Edilia Reyes ommunication Orthopedic Surgery S, ANTOLIN, C[facility] P[facility] in [place], [place] [address] [place] [phone] Social History Tobacco Use Types Packs/Day Years [...] or relatives? How often do you attend islam or More than 4 times per year 04/05/2022 bahai services? Do you belong to any clubs or Yes 04/05/2022 organizations such as islam groups, unions, fraternal or athletic groups, or [...] this encounter Miscellaneous Notes Telephone Encounter - Teagan Bliss L.P.N. - 12/02/2017 10:56 AM AIR SHOVEL OPERATOR Spoke with dad, he thought they had an appointment today. Will see Pt today SHOVEL OPERATOR Telephone Encounter - Jessica Bone - 12/02/2017 10:28 AM CST Alfonso, father, returning your call. [phone]. SHOVEL OPERATOR Telephone Encounter - Teagan Bliss L.P.N. - 12/02/2017 10:03 AM AIR SHOVEL OPERATOR Message left for dad to call back SHOVEL OPERATOR Telephone Encounter - Lucinda Helms - 12/02/2017 8:06 AM CST Please advise if Dr. Mtz can see patient this week sometime? Thanks SHOVEL OPERATOR Telephone Encounter - Sophie Loja L.P.N. - 11/29/2017 2:16 PM CST Please call dad and schedule with either ortho or Podiatry. Had Father on phone but got disconnected. He agrees to have her seen SHOVEL OPERATOR Telephone Encounter - Haydee Bernstein P.A.-C. - 11/29/2017 11:59 AM CST Unfortunately, I don't have any openings today either. If patient is having that much pain, she should rest and take time off the foot over the weekend and then we could have her see either ortho or podiatry next week. If pain is very severe, she could also be seen in urgent care. She has seen Dr. Mtz in the past as well. Between ortho and podiatry, we can get her seen next week. Likely she will need R foot x-rays prior to visit. SHOVEL OPERATOR Telephone Encounter - Jennifer Bernardo R.N. - 11/29/2017 8:15 AM CST Please advise on below message. SHOVEL OPERATOR Telephone Encounter - Mag Morrison - 11/29/2017 7:55 AM CST Patient's dad, Alfonso, called to say that he would like to have his daughter seen by someone in ortho/pod. He is suspicious of a stress fracture in her right foot. Patient plays basketball and is still having practice and games. He pain has been ongoing for about 2 wks now. Dad was informed that Podiatry is not available today, but would like message sent to ortho per his request. Wondering what options are. Please call Dad back at [phone]. Thank you. SHOVEL OPERATOR documented in this encounter Plan of Treatment Not on filedocumented as of this encounter Visit Diagnoses Not on filedocumented in this encounter Additional Health Concerns Assessment Noted Time PHQ-9 Depression Total Score: 3 05/08/2015 12:01 AM CD T documented as of this encounter Care Teams Calculus Tutor Relationship Specialty Start Date End Date Clari Bone M.D. PCP - General 03/14/17 03/03/18 [address] [place] [address] documented as of this encounter
--- OUTSIDE RECORDS SUMMARY | 2022-08-20 00:44 | XMS_ITS | Encounter Summary ---
:2001 Author Organization [facility] Address [address] [place] [address] Care Team Providers Name Role Phone Unavailable Primary Care Provider Unavailable Encounter Details Date Type Department Care Team Description 05/28/2012 Hospital Encounter HX [facility] Clari Espitia M.D. [address] [place] [phone] (Wo rk) Social History Tobacco Use Types [...] or relatives? How often do you attend mu-ism or More than 4 times per year 04/05/2022 holiness services? Do you belong to any clubs or Yes 04/05/2022 organizations such as mu-ism groups, unions, fraternal or athletic groups, or [...] - Inhaled Oxygen Concentration - - Weight 42.8 kg (94 lb 5.7 oz) 05/28/2012 10:48 AM CDT Height 155.4 cm (5' 1.18) 05/28/2012 10:48 AM CDT Body Mass Index 17.72 05/28/2012 10:48 AM CDT Body Mass Index Percentile 53.87 % 05/28/2012 10:48 AM C DT Growth Chart: [facility] [place]NOTE 2] (Girls, 2-20 Years) documented in this encounter Miscellaneous Notes Miscellaneous - Conversion, Historical Provider Ser - 05/28/2012 12:59 PM CDT Ambulatory Patient Summary [facility] [address] [place] [address] Visit Information Name: MACY ISIDRO Current Date: 05/28/2012 12:59:14 Physicians Attending Provider: CLARI ESPITIA MD Primary Care Provider: CLARI ESPITIA MD Your Medications Here is a list of your medications. It is important to take your medications as directed. Use a pillbox or chart to help remind you to take your medications. Please let your doctor or nurse know if you have problems taking your medications. Medication/Strength Dose Route Frequency Indications/Special Instructions/Comments No Medications found Attention: If you have any medications at home that are not on this list, DO NOT take them until youcontact your provider for clarification. Your Allergies & Intolerances Substance Reaction Symptoms Category Comments penicillin G potassium hives Drug Your Problem List Problem Status Onset Comments No current problems or disability Active Routine general medical exam Active Your Upcoming Appointments Date Time Location Reason Provider No Appointments found Your Goals/Additional instructions: Source: [facility] POWERCHART Document Id: [id number] Miscellaneous - Conversion, Historical Provider Ser - 05/28/2012 12:59 PM CDT Ambulatory Depart Summary [facility] [address] [place] [address] Visit Information Name: MACY ISIDRO Visit Date: 05/28/2012 12:59:13 Attending Provider: CLARI ESPITIA MD Primary Care Provider: CLARI ESPITIA MD MACY ISIDRO has been given the following list of medications: Your Medications It is important to take your medications as directed. Use a pill box or chart to help remind you to take your medications. Please let your doctor or nurse know if you have problems taking your medications. Medication/Strength Dose Route Frequency Indications/Special Instructions/Comments No Medications found Attention: If you have any medications at home that are not on this list, DO NOT take them until youcontact your provider for clarification. Additional Information: Source: [facility] POWERCHART Document Id: [id number] Miscellaneous - Bozena Chan, C.M.A. - 05/28/2012 10:48 AM CDT Pediatric Light Out Examiner Intake/History Pediatric Light Out Examiner Intake/History Entered On: 05/28/2012 10:53 CDT Performed On: 05/28/2012 10:48 CDT by BOZENA CHAN [facility] Intake Chief Complaint : well child Temperature Core : 36.9C(Converted to: 98.4DegF) Peripheral Pulse Rate : 107/min (HI) Systolic Blood Pressure : 109mmHg Diastolic Blood Pressure : 67mmHg NIBP Mean : 81mmHg BP Location : Left upper extremity Blood Pressure Cuff Size : Regular Oxygen Therapy : Room air Height : 155.4cm(Converted to: 5ft 1inch(es), 61.18inch(es)) Actual Weight : 42.8kg(Converted to: 94lb 6oz) Weight Source : Standing scale Dosing Weight Clinic : 42.80kg Clinic BSA : 1.36 Body Mass Index : 17.72kg/m2 BOZENA CHAN CMA - 05/28/2012 10:48 CDT General Info Information Given By : Patient, Mother BOZENA CHAN CMA - 05/28/2012 10:48 CDT Subjective Pain Symptoms : No BOZENA CHAN CMA - 05/28/2012 10:48 CDT Dependent Habits Tobacco Use/Currently Using : No Smoking Status : Never smoker Alcohol Use : No BOZENA CHAN CMA - 05/28/2012 10:48 CDT Allergy Allergies (Active) penicillin G potassium Estimated Onset Date: Unspecified ; Reactions: hives ; Created By: BOZENA CHAN CMA; Reaction Status: Active ; Category: Drug ; Substance: penicillin G potassium ; Type: Allergy ; Updated By: BOZENA CHAN CMA; Reviewed Date: 05/28/2012 10:47 CDT Source: [facility] Ryla Document Id: [id number] documented in this encounter Plan of Treatment Not on filedocumented as of this encounter Visit Diagnoses Not on filedocumented in this encounter
--- OUTSIDE RECORDS SUMMARY | 2022-08-20 00:44 | XMS_ITS | Encounter Summary ---
:2001 Author Organization [facility] Address [address] [place] [address] Care Team Providers Name Role Phone Unavailable Primary Care Provider Unavailable Encounter Details Date Type Department Care Team Description 08/20/2012 Hospital Encounter HX [facility] Dom Thomas, D.P.M. [address] [place] [phone] (Wo rk) Social History Tobacco [...] More than 4 times per year 04/05/2022 moravian services? Do you belong to any clubs [...] place to sleep or slept in a assisted (including now)? Sex Assigned at Date Recorded Not on file documented as of this encounter Progress Notes Heather Thomas D.P.M. - 08/20/2012 12:00 AM CST CLINIC NOTE Event Type: LE DICTATED BY: Heather Thomas DPM DATE: 08/20/2012 IMPRESSION/REPORT/PLAN The patient is seen for P&A matrixectomy right hallux, both borders. The universal protocol was followed with correct procedure verified, correct patient verified, site not marked because I was continuously in the room, and a pause was done prior to the procedure. Under a local block of 6 cc of 2% Xylocaine, 0.5% Marcaine plain, the area was anesthetized, prepped and draped. Nail borders were removed in toto. Phenol applied to the nail matrix with curettement in between each application. A total of 3 applications were done. The areas were then flushed with copious amounts of alcohol, dressed with Silvadene cream, sterile 2 x 2's, and sterile Man wrap. Written and oral posttreatment instructions were given. Will see the patient back again in one week, sooner if problems arise. CHEMA:octavio cc: Electronically Signed By: HEATHER THOMAS DPM On: 09/01/2012 07:52 AM Source: [facility] Document Id: [id number] WRITER ASSEMBLER documented in this encounter Miscellaneous Notes Miscellaneous - Patty Alva L.P.N. - 08/20/2012 3:24 PM CST Ambulatory Depart Summary [facility] [address] [place] [address] Visit Information Name: MACY ISIDRO [facility] Number: [id number] Visit Date: 08/20/2012 15:24:24 Attending Provider: HEATHER THOMAS DPM Primary Care Provider: CHANEL ESPITIA MD MACY ISIDRO has been given [...] your provider for clarification. Additional Information: Source: [employer] Document Id: [id number] WRITER ASSEMBLER Miscellaneous - Patty Alva L.P.N. - 08/20/2012 3:24 PM CST Ambulatory Patient Summary [address] [address] Visit Information Name: MACY ISIDRO [facility] Number: [id number] Current Date: 08/20/2012 15:24:25 Physicians Attending Provider: HEATHER THOMAS DPM Primary Care Provider: CHANEL ESPITIA MD Your Medications Here is a [...] Upcoming Appointments Date Time Location Reason Provider 08/26/2012 15:35 [facility] 1 wk p and a recheck Heather Thomas DPM Your Goals/Additional instructions: Source: [employer] Document Id: [id number] WRITER ASSEMBLER Miscellaneous - Patty Alva L.P.N. - 08/20/2012 3:22 PM CST Pediatric Manager Brand Intake/History Pediatric Manager Brand Intake/History Entered On: 08/20/2012 15:24 TYPEWRITER ASSEMBLER Performed On: 08/20/2012 15:22 TYPEWRITER ASSEMBLER by PATTY ALVA LPN Intake Chief Complaint : Pt presents today for P&A procedure right hallux borders. Consent signed by mother. Unversal protocol checklist completed. Oral and written post procedure instructions given to Ptand mom. They verbalize understanding. Follow up appointment made with Pt. PATTY ALVA LPN - 08/20/2012 15:22 TYPEWRITER ASSEMBLER Subjective Pain Symptoms : No PATTY ALVA LPN - 08/20/2012 15:22 TYPEWRITER ASSEMBLER Dependent Habits Tobacco Use/Currently Using : No Smoking Status : Unknown if ever smoke PATTY ALVA LPN - 08/20/2012 15:22 TYPEWRITER ASSEMBLER Allergy Allergies (Active) penicillin G potassium Estimated Onset Date: Unspecified ; Reactions: hives ; Created By: BOZENA CHAN CMA; Reaction Status: Active ; Category: Drug ; Substance: penicillin G potassium ; Type: Allergy ; Updated By: BOZENA CHAN CMA; Reviewed Date: 05/28/2012 10:47 CDT Source: [facility] POWERCHART Document Id: [id number] WRITER ASSEMBLER documented in this encounter Plan of Treatment Not on filedocumented as of this encounter Visit Diagnoses Not on filedocumented in this encounter
--- OUTSIDE RECORDS SUMMARY | 2022-08-20 00:44 | XMS_ITS | Encounter Summary ---
:2001 Author Organization [facility] Address [address] [place] [address] Care Team Providers Name Role Phone Brody Mccray M.D. Primary Care Provider Reason for Visit Reason Onset Date Comments Triage Request 04/08/2019 Encounter Details Date Type Department Care Team Description 04/08/2019 Clinical Communication Department of Bebeto Dumont Request Sports Medicine in Provider [place], [place] [address] [place] [address] Social History Tobacco Use Types Packs/Day Years [...] or relatives? How often do you attend confucianism or More than 4 times per year 04/05/2022 adventist services? Do you belong to any clubs or Yes 04/05/2022 organizations such as confucianism groups, unions, fraternal or athletic groups, or [...] slept in a care home (including now)? Sex Assigned at Date Recorded Not on file documented as of this encounter Miscellaneous Notes Telephone Encounter - Zoila Shah L.A.T., TyroneTMichael - 04/14/2019 4:11 PM CDT That is fine Telephone Encounter - Stacy Sepulveda - 04/14/2019 8:29 AM CDT Zoila, Patient wanted to get in soon and I picked up a 1pm on 04/28 does that look ok to you? They are goingto have the xrays done on 04/27 in [place]. Stacy Telephone Encounter - Stacy Sepulveda - 04/14/2019 8:15 AM CDT Called and scheduled with patient Telephone Encounter - Zoila Shah L.A.T., A.T.CAzul - 04/13/2019 11:33 AM CDT I placed orders. Xrays Consult MRI Telephone Encounter - Alfonso Jane M.D. - 04/13/2019 11:16 AM CDT Let's preschedule the MRI. At her age it is most likely muscle strain rather than proximal hamstring/ischial tuberosity, so would order thigh MRI -- ? Hamstring injury Curious they are mentioning difficulty scheduling. I thought the triage was supposed to go to the next available doc. Telephone Encounter - Zoila Shah L.A.T., A.T.C. - 04/13/2019 10:26 AM CDT Do you want me to preschedule an MRI or just wait until you see her to decide? Telephone Encounter - Stacy Sepulveda - 04/09/2019 10:04 AM CDT Zoila is good with the plan for consult and xray. We were looking at schedules and it seems we onlyhave few slots. What do we have permission to for scheduling this patient sooner than 05/18? Thank you Stacy Please do not reply to this message. If replying is needed please re-route to P T SPM SCHEDULING Telephone Encounter - Zoila Shah L.A.T., Sharon - 04/08/2019 1:25 PM CDT Please advise if she wants to proceed and i'll place orders. Telephone Encounter - Alfonso Jane M.D. - 04/08/2019 12:53 PM CDT Looks like she has local ([facility]), so not sure why there was a review? In any case, I would be glad to see her with hip x-rays prior. We will likely order an MRI scan to better assess what sounds like is a hamstring muscle injury. Telephone Encounter - Irene Luna - 04/08/2019 11:07 AM CDT Images from the original note were not included. Dear Dr. Jane, Please triage the following appointment request. The following records are available for you to review: - Questionnaire/Intake form (attach below BY COPY AND PASTING FORM - delete this prompt after attaching) - Clinical Notes Seen by chiropractor - Images no images done Additional Information: Mom is requesting office notes from chiropractor, pt hasn't been evaluated anywhere else. Please do not reply to this message. If replying is needed please re-route to P RST SPM SCHEDULING. Thank you, Irene documented in this encounter Plan of Treatment Not on filedocumented as of this encounter Visit Diagnoses Not on filedocumented in this encounter Additional Health Concerns Assessment Noted Time PHQ-9 Depression Total Score: 3 05/08/2015 12:01 AM CD T documented as of this encounter Care Teams Forest Patrolman Relationship Specialty Start Date End Date Brody Mccray M.D. PCP - General 03/04/18 04/05/20 [address] [place] [phone] documented as of this encounter
--- OUTSIDE RECORDS SUMMARY | 2022-08-20 00:44 | XMS_ITS | Encounter Summary ---
:2001 Author Organization [facility] Address [address] [place] [address] Care Team Providers Name Role Phone Clari Bone M.D. Primary Care Provider Encounter Details Date Type Department Care Team Description 09/11/2017 Abstract Department of Family Medicine, Provider, Historical [facility], in [place], [place] [address] [place] [address] Social History Tobacco Use Types Packs/Day Years [...] or relatives? How often do you attend judaism or More than 4 times per year 04/05/2022 temple services? Do you belong to any clubs or Yes 04/05/2022 organizations such as judaism groups, unions, fraternal or athletic groups, or [...] a [place] [facility] (including now)? Sex Assigned at Date Recorded Not on file documented as of this encounter Plan of Treatment Not on filedocumented as of this encounter Visit Diagnoses Not on filedocumented in this encounter Additional Health Concerns Assessment Noted Time PHQ-9 Depression Total Score: 3 05/08/2015 12:01 AM CD T documented as of this encounter Care Teams Black Leather Buffer Relationship Specialty Start Date End Date Clari Bone M.D. PCP - General 03/14/17 03/03/18 [address] [place] [address] documented as of this encounter
--- OUTSIDE RECORDS SUMMARY | 2022-08-20 00:44 | XMS_ITS | Encounter Summary ---
:2001 Author Organization [facility] Address [address] [place] [address] Care Team Providers Name Role Phone Brody Mccray M.D. Primary Care Provider Encounter Details Date Type Department Care Team Description 04/27/2019 Hospital Encounter Department of Alfonso Jane, Pain Thigh Left Radiology in [place] [address] [facility] [address] [place] [phone] Social History Tobacco Use Types Packs/Day Years [...] or relatives? How often do you attend yazidi or More than 4 times per year 04/05/2022 yarsanism services? Do you belong to any clubs or Yes 04/05/2022 organizations such as yazidi groups, unions, fraternal or athletic groups, or [...] place to sleep or slept in a fdc (including now)? Sex Assigned at Date Recorded Not on file documented as of this encounter Medications at Time of Discharge Medication Sig Dispensed Refills Start Date End Date fluticasone Administer 2 sprays 48 g 3 09/11/2017 08/0 12/2019 (for_FLONASE) 50 into each nostril mcg/actuation nasal daily. spray tretinoin (for_RETIN-A) Apply 1 application 0 05/03/2020 0.01 % gel topically at bedtime. documented as of this encounter Plan of Treatment Not on filedocumented as of this encounter Procedures Procedure Name Priority Date/Time Associated Comments Diagnosis DX HIP AND PELVIS RAD - Routine 04/27/2019 1:10 Pain Thigh Left Res ults for this LEFT 2-3 VIEWS (most inpatients PM CDT procedure are in and all the results outpatients) section. documented in this encounter Results DX Hip And Pelvis Left 2-3 Views (04/27/2019 1:10 PM CDT) Anatomical Region Laterality Modality Lower Extremity, Pelvis, Hip, Musculoskeletal RST LOS, Left Digital Radiography Musculoskeletal ARZ LOS, Muskuloskeletal FLA LOS Specimen (Source) Anatomical Collection Method Collection Time Re ceived Time Location / / Volume Laterality 04/27/2019 2:37 PM CDT Impressions 04/27/2019 2:39 PM CDT Comparison 12/23/07. No acute fracture or dislocation. Possible small cam protuberance of the left femoral hea d/neck junction raises possibility of femoral acetabular impingement. New inde terminate 1 cm osteosclerotic lesion in the left femoral head. Narrative 04/27/2019 2:39 PM CDT EXAM: DX HIP AND PELVIS LEFT 2-3 VIEWS Procedure Note Arden Duran M.D. - 04/27/2019 EXAM: DX HIP AND PELVIS LEFT 2-3 VIEWS IMPRESSION: Comparison 12/23/07. No acute fracture or dislocation. Possible small cam protuberance of the left femoral hea d/neck junction raises possibility of femoral acetabular impingement. New inde terminate 1 cm osteosclerotic lesion in the left femoral head. [facility] MATHIEU NICOLE documented in this encounter Visit Diagnoses Diagnosis Pain Thigh Left documented in this encounter Additional Health Concerns Assessment Noted Time PHQ-9 Depression Total Score: 3 05/08/2015 12:01 AM CD T documented as of this encounter Care Teams Clinical Ob Relationship Specialty Start Date End Date Brody Mccray M.D. PCP - General 03/04/18 04/05/20 [address] [place] [phone] documented as of this encounter
--- OUTSIDE RECORDS SUMMARY | 2022-08-20 00:44 | XMS_ITS | Encounter Summary ---
:2001 Author Organization [facility] Address [address] [place] [address] Care Team Providers Name Role Phone Unavailable Primary Care Provider Unavailable Encounter Details Date Type Department Care Team Description 05/24/2015 Hospital Encounter HX [facility] Clari Bone M.D. [address] [place] [phone] (Wo rk) Social History Tobacco Use Types [...] or relatives? How often do you attend holiness or More than 4 times per year 04/05/2022 anglican services? Do you belong to any clubs or Yes 04/05/2022 organizations such as holiness groups, unions, fraternal or athletic groups, or [...] or slept in a fpc (including now)? Sex Assigned at Date Recorded Not on file documented as of this encounter Plan of Treatment Not on filedocumented as of this encounter Visit Diagnoses Not on filedocumented in this encounter Additional Health Concerns Assessment Noted Time PHQ-9 Depression Total Score: 3 05/08/2015 12:01 AM CD T documented as of this encounter
--- OUTSIDE RECORDS SUMMARY | 2022-08-20 00:44 | XMS_ITS | Encounter Summary ---
:[address] [facility] Address [address] [place] [address] Care Team Providers Name Role Phone Clari Bone M.D. Primary Care Provider Encounter Details Date Type Department Care Team Description 09/11/2017 Abstract Department of Family Medicine in [place], [place] [address] [place], [place] [phone] Social History Tobacco Use Types Packs/Day Years [...] More than 4 times per year 04/05/2022 lutheran services? Do you belong to any clubs [...] for the very basics like Not h gnia at all 04/05/2022 food, housing, medical care, [...] documented as of this encounter Care Teams General Service Technician Relationship Specialty Start Date End Date Clari Bone M.D. PCP - General 03/14/17 03/03/18 [address] [place] [address] documented as of this encounter
--- OUTSIDE RECORDS SUMMARY | 2022-08-20 00:44 | XMS_ITS | Encounter Summary ---
:2001 Author Organization [facility] Address [address] [place] [address] Care Team Providers Name Role Phone Unavailable Primary Care Provider Unavailable Encounter Details Date Type Department Care Team Description 03/10/2014 Hospital Encounter HX [facility] Clari Espitia M.D. [address] [place] [phone] (Wo rk) Social History Tobacco Use Types [...] or relatives? How often do you attend yazdanism or More than 4 times per year 04/05/2022 hindu services? Do you belong to any clubs or Yes 04/05/2022 organizations such as yazdanism groups, unions, fraternal or athletic groups, or [...] - Inhaled Oxygen Concentration - - Weight 53.4 kg (117 lb 11.6 oz) 03/10/2014 2:53 PM CDT Height 167 cm (5' 5.75) 03/10/2014 2:53 PM CDT Body Mass Index 19.15 03/10/2014 2:53 PM CDT Body Mass Index Percentile 57.46 % 03/10/2014 2:53 PM CD T Growth Chart: [facility] (Girls, 2-20 Years) documented in this encounter Miscellaneous Notes Miscellaneous - Conversion, Historical Provider Ser - 03/10/2014 3:44 PM CDT Ambulatory Discharge Medication List [facility] [address] [place], [place] [id number] Visit Information Name: MACY ISIDRO [facility] Number: [id number] Visit Date: 03/10/2014 15:44:20 Attending Provider: CLARI ESPITIA MD Primary Care Provider: CLARI ESPITIA MD MACY ISIDROTH has been given the following list of medications: Your Medications It is important to take your medications as directed. Use a pill box or chart to help remind you to take your medications. Please let your doctor or nurse know if you have problems taking your medications. Medication/Strength How to Take Indications/Special Instructions/Comments/Notes for Patient Medication Changes/Routing No Medications found Stop Taking the Following Medications: Medication list as of 03-10-14 15:44 Attention: If you have any medications at home that are not on this list, DO NOT take them until youcontact your provider for clarification. Give a copy of your medication list to your primary care provider. Update your medication list any time medications or doses are changed and carry your medication list at all times in case of emergency. Electronically Signed By: CLARI ESPITIA MD Signed On:10-MAR-2014 15:27:40 Additional Information: Source: [facility] POWERCHART Document Id: [id number] Miscellaneous - Conversion, Historical Provider Ser - 03/10/2014 3:44 PM CDT Ambulatory Patient Summary [place] [address] [place], [place] [id number] Visit Information Name: MACY ISIDRO [facility] Number: [id number] Current Date: 03/10/2014 15:44:21 Physicians Attending Provider: CLARI ESPITIA MD Primary Care Provider: CLARI ESPITIA MD MACY ISIDROBETH has been given the following list of [...] Take Indications/Special Instructions/Comments/Notes for Patient Medication Changes/Routing No Medications found Stop Taking the Following Medications: Medication list as of 03-10-14 15:44 Attention: If you have any medications at home that are not on this list, DO NOT take them until youcontact your provider for clarification. Give a copy of your medication list to your primary care provider. Update your medication list any time medications or doses are changed and carry your medication list at all times in case of emergency. Electronically Signed By: CLARI ESPITIA MD Signed On:10-MAR-2014 15:27:40 Your Allergies & Intolerances Substance Reaction Symptoms Category Comments penicillin G potassium hives Drug Your Problem List Problem Status Onset Comments No Chronic Problems Active Routine general medical exam Active Your Upcoming Appointments Date Time Location Reason Provider No Appointments found Attention: Contact your local Clinic if further appointment detail needed. Your Goals/Additional instructions: Source: [facility] POWERCHART Document Id: [id number] Miscellaneous - Darrell Rees C.M.AAzul - 03/10/2014 2:53 PM CDT Pediatric Utility Maintenance Worker Intake/History Pediatric Utility Maintenance Worker Intake/History Entered On: 03/10/2014 14:59 CDT Performed On: 03/10/2014 14:53 CDT by DARRELL REES [facility] Intake Ambulatory Intake Additional Information : 1st bp= 133/81, 88 2nd bp= 110/72, 92 Temperature Core : 36.7 DegC(Converted to: 98.1 DegF) Peripheral Pulse Rate : 92 /min (HI) Respiratory Rate : 16 /min Systolic Blood Pressure : 110 mmHg Diastolic Blood Pressure : 72 mmHg NIBP Mean : 85 mmHg BP Location : Left upper extremity Blood Pressure Cuff Size : Regular Height : 167 cm(Converted to: 5 ft 6 inch(es), 66 inch(es)) Actual Weight : 53.4 kg(Converted to: 117 lb 12 oz) Weight Source : Standing scale Dosing Weight Clinic : 53.4 kg Clinic BSA : 1.57 Body Mass Index : 19.15 kg/m2 [facility] - 03/10/2014 14:53 CDT General Info Accompanied By : Mother Languages : [place] [facility] RE[facility] - 03/10/2014 14:53 CDT Subjective Pain Symptoms : Yes [facility] RE[facility] - 03/10/2014 14:53 CDT Pain Pain Assessment Grid Pain 1 Location : Ankle Laterality : Bilateral Intensity : 0 Acceptable Intensity : 4 Time Pattern : Intermittent [facility] - 03/10/2014 14:53 CDT Dependent Habits Tobacco Use/Currently Using : No Smoking Status : Never smoker Alcohol Use : No [facility] - 03/10/2014 14:53 CDT Caffeine Use Grid Caffeine Use : Current Type : Soft drinks Frequency : Occasionally [facility] - 03/10/2014 14:53 CDT [facility] Document Id: [id number]!39 documented in this encounter Plan of Treatment Not on filedocumented as of this encounter Visit Diagnoses Not on filedocumented in this encounter
--- OUTSIDE RECORDS SUMMARY | 2022-08-20 00:44 | XMS_ITS | Encounter Summary ---
:2001 Author Organization [facility] Address [address] [place] [address] Care Team Providers Name Role Phone Unavailable Primary Care Provider Unavailable Encounter Details Date Type Department Care Team Description 08/26/2012 Hospital Encounter HX [facility] Dom Thomas, D.P.M. [address] [place] [phone] (Wo rk) Social History Tobacco [...] or relatives? How often do you attend congregation or More than 4 times per year 04/05/2022 jewish services? Do you belong to any clubs or Yes 04/05/2022 organizations such as congregation groups, unions, fraternal or athletic groups, or [...] place to sleep or slept in a jail (including now)? Sex Assigned at Date Recorded Not on file documented as of this encounter Progress Notes Heather Thomas D.P.M. - 08/26/2012 12:00 AM CST CLINIC NOTE Event Type: SV DICTATED BY: Heather Thomas DPM DATE: 08/26/2012 IMPRESSION/REPORT/PLAN The patient seen for P&A recheck. The patient has no complaints. P&A site left hallux clean, dry, and healing well. At this point, the patient will continue to soak once a day. Leave area open at night, cover during the day for one more week. We will follow up with her again p.r.n. She is otherwise discharged. RLC:benedicto cc: Electronically Signed By: HEATHER THOMAS DPM On: 09/02/2012 08:25 AM Source: [facility] AMCDICTAPHONESYS Document Id: [id number] E PULLER documented in this encounter Miscellaneous Notes Miscellaneous - Mckenzie Hubbard - 08/26/2012 3:40 PM CST Ambulatory Patient Summary [place] [address] [place] [address] Visit Information Name: JIMMY ISIDRO [facility] Number: [id number] Current Date: 08/26/2012 15:40:48 Physicians Attending Provider: HEATHER THOMAS DPM Primary Care Provider: CHANEL ESPITIA MD Your Medications Here is a list of your medications. It is important to take your medications as directed. Use a pillbox or chart to help remind you to take your medications. Please let your doctor or nurse know if you have problems taking your medications. Medication/Strength Dose Route Frequency Indications/Special Instructions/Comments silver sulfADIAZINE topical (Silvadene 1% topical cream) 1 sarabjit Topical two times a day Attention: If you have any medications at [...] No Appointments found Your Goals/Additional instructions: Source: [facility] POWERCHART Document Id: [id number] E PULLER Kam - Mckenzie Hubbard - 08/26/2012 3:40 PM CST Ambulatory Depart Summary [address] [address] Visit Information Name: JIMMY ISIDRO [facility] Number: [id number] Visit Date: 08/26/2012 15:40:47 Attending Provider: HEATHER THOMAS DPElfego Primary Care Provider: CHANEL ESPITIA MD JIMMY ISIDRO has been given the following list of medications: Your Medications It is important to take your medications as directed. Use a pill box or chart to help remind you to take your medications. Please let your doctor or nurse know if you have problems taking your medications. Medication/Strength Dose Route Frequency Indications/Special Instructions/Comments silver sulfADIAZINE topical (Silvadene 1% topical cream) 1 sarabjit Topical two times a day Attention: If you have any medications at home that are not on this list, DO NOT take them until youcontact your provider for clarification. Additional Information: Source: [facility] PCS EdventuresCHART Document Id: [id number] E PULLER Kam - Mckenzie Hubbard - 08/26/2012 3:39 PM CST Pediatric Federal Appellate Clerk Intake/History Pediatric Federal Appellate Clerk Intake/History Entered On: 08/26/2012 15:40 CHUTE PULLER Performed On: 08/26/2012 15:39 CHUTE PULLER by MCKENZIE HUBBARD Intake Chief Complaint : 1 week p/a check hallux mom said she has been running around MCKENZIE HUBBARD - 08/26/2012 15:39 CHUTE PULLER Subjective Pain Symptoms : Yes MCKENZIE HUBBARD Soha - 08/26/2012 15:39 CHUTE PULLER Pain Pain Assessment Grid Pain 1 Location : Foot Laterality : Right Intensity : 6 MCKENZIE HUBBARD - 08/26/2012 15:39 CHUTE PULLER Dependent Habits Tobacco Use/Currently Using : No Smoking Status : Unknown if ever smoke MCKENZIE HUBBARD Soha - 08/26/2012 15:39 CHUTE PULLER Allergy Allergies (Active) penicillin G potassium Estimated Onset Date: Unspecified ; Reactions: hives ; Created By: BOZENA CHAN CMA; Reaction Status: Active ; Category: Drug ; Substance: penicillin G potassium ; Type: Allergy ; Updated By: BOZENA CHAN CMA; Reviewed Date: 05/28/2012 10:47 CDT Source: [facility] Hiberna Document Id: [id number] E PULLER documented in this encounter Plan of Treatment Not on filedocumented as of this encounter Visit Diagnoses Not on filedocumented in this encounter
--- OUTSIDE RECORDS SUMMARY | 2022-08-20 00:44 | XMS_ITS | Encounter Summary ---
:2001 Author Organization [facility] Address [address] [place] [address] Care Team Providers Name Role Phone Unavailable Primary Care Provider Unavailable Encounter Details Date Type Department Care Team Description 05/06/2015 - Hospital Encounter HX [facility]OSE 1 MiMurali 05/08/2015 ROBIN Marcelo M.D. [address] [place] [address] Social History Tobacco Use Types Packs/Day Years [...] or relatives? How often do you attend mandaen or More than 4 times per year 04/05/2022 spiritism services? Do you belong to any clubs or Yes 04/05/2022 organizations such as mandaen groups, unions, fraternal or athletic groups, or [...] - Inhaled Oxygen Concentration - - Weight 57.4 kg (126 lb 8.7 oz) 05/06/2015 5:10 AM CDT Height 170 cm (5' 6.93) 05/06/2015 5:10 AM CDT Body Mass Index 19.86 05/06/2015 5:10 AM CDT Body Mass Index Percentile 57.08 % 05/06/2015 5:10 AM CD T Growth Chart: [facility] (Girls, 2-20 Years) documented in this encounter Plan of Treatment Not on filedocumented as of this encounter Visit Diagnoses Not on filedocumented in this encounter Additional Health Concerns Assessment Noted Time PHQ-9 Depression Total Score: 7 05/06/2015 12:01 AM CD T documented as of this encounter
--- OUTSIDE RECORDS SUMMARY | 2022-08-20 00:44 | XMS_ITS | Encounter Summary ---
:2001 Author Organization [facility] Address [address] [place] [address] Care Team Providers Name Role Phone Unavailable Primary Care Provider Unavailable Encounter Details Date Type Department Care Team Description 07/29/2012 Hospital Encounter HX [facility] Dom [...] or relatives? How often do you attend presybeterian or More than 4 times per year 04/05/2022 jain services? Do you belong to any clubs or Yes 04/05/2022 organizations such as presybeterian groups, unions, fraternal or athletic groups, or [...] place to sleep or slept in a alf (including now)? Sex Assigned at Date Recorded Not on file documented as of this encounter Progress Notes Heather Thomas D.P.M. - 07/29/2012 12:00 AM CDT CLINIC NOTE Event Type: LE DICTATED BY: Heather Thomas DPM DATE: 07/29/2012 IMPRESSION/REPORT/PLAN ASSESSMENT: Paronychia. PLAN: Nail border was trimmed. Large spicule removed. Will follow the patient up again for P&A matrixectomy on next visit. HISTORY OF PRESENT ILLNESS An 12-year-old female seen with right hallux ingrown nail. The patient did have a history of similar problem on the left which required P&A matrixectomy. Otherwise, healthy female. CURRENT MEDICATIONS Reviewed. ALLERGIES Reviewed. PHYSICAL EXAMINATION Pulses DP and PT are palpable. Hair growth present to the digits. The skin is within normal limits. Nail border of the right hallux, especially tibial border is incurvated, erythematous. No drainage noted. It is tender to palpation, slightly warm to touch. RLC:benedicto cc: Electronically Signed By: HEATHER THOMAS DPM On: 08/01/2012 12:48 PM Source: [facility] AMCDICTAPHONESYS Document Id: [id number] documented in this encounter Miscellaneous Notes Miscellaneous - Mckenzie Hubbard - 07/29/2012 3:39 PM CDT Ambulatory Patient Summary [facility] [address] [place] [address] Visit Information Name: MACY ISIDRO Current Date: 07/29/2012 15:39:24 Physicians Attending Provider: HEATHER THOMAS DPM Primary [...] No Appointments found Your Goals/Additional instructions: Source: [facility] KeyOwner Document Id: [id number] Monicacelltricia - Mckenzie Hubbard - 07/29/2012 3:39 PM CDT Ambulatory Depart Summary [address] [address] Visit Information Name: MACY ISIDRO Visit Date: 07/29/2012 15:39:23 Attending Provider: HEATHER THOMAS DPM Primary Care [...] your provider for clarification. Additional Information: Source: [facility] KeyOwner Document Id: [id number] Kam - Mckenzie Hubbard - 07/29/2012 3:38 PM CDT Pediatric Flight Test Data Acquisition Technician Intake/History Pediatric Flight Test Data Acquisition Technician Intake/History Entered On: 07/29/2012 15:39 CDT Performed On: 07/29/2012 15:38 CDT by MCKENZIE HUBBARD Intake Chief Complaint : right hallux ingrown pain with pressure and touch MCKENZIE HUBBARD - 07/29/2012 15:38 CDT Subjective Pain Symptoms : No MCKENZIE HUBBARD - 07/29/2012 15:38 CDT Dependent Habits Tobacco Use/Currently Using : No Smoking Status : Unknown if ever smoke MCKENZIE HUBBARD - 07/29/2012 15:38 CDT Allergy Allergies (Active) penicillin G potassium Estimated Onset Date: Unspecified ; Reactions: hives ; Created By: BOZENA CHAN CMA; Reaction Status: Active ; Category: Drug ; Substance: penicillin G potassium ; Type: Allergy ; Updated By: BOZENA CHAN CMA; Reviewed Date: 05/28/2012 10:47 CDT [facility] Document Id: [id number] documented in this encounter Plan of Treatment Not on filedocumented as of this encounter Visit Diagnoses Not on filedocumented in this encounter
--- OUTSIDE RECORDS SUMMARY | 2022-08-20 00:44 | XMS_ITS | Encounter Summary ---
:2000 Author Organization [facility] Address [address] [place] [address] Care Team Providers Name Role Phone Clari Bone M.D. Primary Care Provider Reason for Visit Reason Comments Follow-up left ear issues Appointment Request (Routine) - Closed Specialty Diagnoses / Procedures Referred By Contact Refer red To Contact Referral ID Status Reason Start Date Expiration Date Visits Requ ested Visits Authorized [id number] Closed 09/10/2017 03/09/2018 1 1 Encounter Details Date Type Department Care Team Description 09/11/2017 Office Visit Department of Clari Salazar, Pain Ear Left (Primary MedicineHayder M.D. Dx) Clinic, in [place], [facility] [address] [place], [place] [address] [address] [place] [address] [phone] Social History Tobacco Use Types Packs/Day Years [...] or relatives? How often do you attend lutheran or More than 4 times per year 04/05/2022 adventism services? Do you belong to any clubs or Yes 04/05/2022 organizations such as lutheran groups, unions, fraternal or athletic groups, or [...] Sign Reading Time Taken Comments Blood Pressure 116/72 09/11/2017 2:20 PM PRESIDENT & FOUNDER Pulse 73 09/11/2017 2:20 PM PRESIDENT & FOUNDER Temperature 36.5 ??C (97.7 ??F) 09/11/2017 2:20 PM PRESIDENT & FOUNDER Respiratory Rate - - Oxygen Saturation - - Inhaled Oxygen Concentration - - Weight 67.4 kg (148 lb 9.4 oz) 09/11/2017 2:20 PM PRESIDENT & FOUNDER Height - - Body Mass Index - - documented in this encounter Progress Notes Clari Bone M.D. - 09/11/2017 2:15 PM CST SUBJECTIVE CHIEF COMPLAINT / REASON FOR VISIT Macy Isidro is a 17 y.o. female who presents for evaluation of Follow-up (left ear issues). HISTORY OF PRESENT ILLNESS Macy is in with left ear pain today. She had an otitis media in April and May of this year.No recent fevers. No history of sore throat or allergies. No history of snoring. No recent medications. Other than her ear pain she feels well. OBJECTIVE BP 116/72 (BP Location: Left arm, Patient Position: Sitting, Cuff Size: Regular) Pulse 73 Temp 36.5 ??C (Temporal) Wt 67.4 kg PHYSICAL EXAM Head: Normal cephalic Ears: Right TM is pearly funes and translucent. Left TM has some fluid, but no redness. Ear canals are normal. No pain over pinna or tragus Oropharynx: Right tonsil 2+, left tonsil 1+ No erythema or exudate Neck : Supple ASSESSMENT / PLAN #1 Pain Ear Left I think this represents eustacian tube dysfunction. I recommend flonase nasal spray 1 squirt each nare twice a day and sudafed 12 hour, one tablet daily in the am. Physiology of eustachian tube dysfunction was discussed. If she develops fever and very acute pain, we can start an antibiotic. If problems are persistent and severe, we can refer to ENT. Mom will cook pickled meat Rxs otc. IDENT & FOUNDER documented in this encounter Plan of Treatment Not on filedocumented as of this encounter Visit Diagnoses Diagnosis Pain Ear Left - Primary documented in this encounter Additional Health Concerns Assessment Noted Time PHQ-9 Depression Total Score: 3 05/08/2015 12:01 AM CD T documented as of this encounter Care Teams Police Manager Relationship Specialty Start Date End Date Clari Bone M.D. PCP - General 03/14/17 03/03/18 [address] [place] [address] documented as of this encounter
--- OUTSIDE RECORDS SUMMARY | 2022-08-20 00:44 | XMS_ITS | Encounter Summary ---
:2000 Author Organization [facility] Address [address] [place] [address] Care Team Providers Name Role Phone Clari Bone M.D. Primary Care Provider Encounter Details Date Type Department Care Team Description 05/21/2017 Hospital Encounter HX NO MAPPING Kaela Tran, ANTOLIN , C.N.P., M.S.N., R.N. [address] [place] [address] (Wo rk) Social History Tobacco Use Types [...] or relatives? How often do you attend anabaptist or More than 4 times per year 04/05/2022 adventism services? Do you belong to any clubs or Yes 04/05/2022 organizations such as anabaptist groups, unions, fraternal or athletic groups, or [...] place to sleep or slept in a group home (including now)? Sex Assigned at Date Recorded Not on file documented as of this encounter Medications at Time of Discharge Medication Sig Dispensed Refills Start Date End Date tretinoin Apply 1 application 0 10/16/201605/03 (for_RETIN-A) 0.01 % topically at bedtime. gel documented as of this encounter Progress Notes MarcKaela Anya - 05/21/2017 2:50 PM CDT Express [facility] Visit CHIEF COMPLAINT/REASON FOR VISIT: Ear pain, L HISTORY OF PRESENT ILLNESS: Patient is a pleasant 17 year old who presents to express care today with her mother for L ear pain. Symptoms have been present for the past couple of days. Accompanying symptoms include no nasal congestion or cough. She has been having some minor allergy issues. There has not been a fever. There is not a history of ear infections in the past. Tylenol and Ibuprofen has been tried with some relief. MEDICATIONS cefdinir 300 mg oral capsule, 300 mg, 1 cap(s), PO, 2xDay, 0 refills tretinoin 0.01% topical gel, List Documented Prior to Med History Completed ALLERGIES penicillin G potassium (hives) PAST MEDICAL HISTORY Chronic Routine general medical exam Historical No historical problems PROCEDURES/SURGICAL HISTORY Excision of nail and nail matrix, partial or complete (eg, ingrown or deformed nail), for permanentremoval;.. (Week of 09/01/2010), Blood, occult, by peroxidase activity (eg, guaiac), qualitative; feces, consecutive collected specimens with single determination, for colorectal neoplasm screening (ie, patient was provided 3 cards or single triple card for consec. (Week of 12/25/2007). SOCIAL HISTORY Date Time: 05/21/2017 14:49 Tobacco: Smoking Status: Never smoker Exposure: No Results Found Alcohol: Use: No Results Found Recreational Drugs: Use: None Type: No Results Found FAMILY HISTORY No qualifying data available. VITAL SIGNS Temperature Core: 36.7 DegC Peripheral Pulse Rate: 88 /min SpO2: 99 % BLOOD PRESSURE Systolic Blood Pressure: 122 mmHg Diastolic Blood Pressure: 76 mmHg PHYSICAL EXAM: General: alert and oriented, no acute distress Nose: clear rhinorrhea. Ears: canals patent. L TM is erythematous and bulging with a purulent effusion present. Throat: no erythema, no swelling or exudates. Lymph nodes: no adenopathy. Heart: RR. Lungs: clear to auscultation bilaterally. Skin: negative for rash where examined. IMPRESSION/REPORT/PLAN: Diagnosis: Otitis Media (OM) L Comment: Ordered: OV [facility] Est Pt w/ Billable Procedure - [id number]; 05/21/17 14:50:00 CDT, Dx: Otitis Media (OM) L Additional Orders: Comment: Ordered: cefdinir 300 mg oral capsule,300 mg = 1 cap(s), PO, 2xDay, x 10 day(s), # 20 cap(s), 0 Refill(s), Acute, Pharmacy: [place], [place] End of Orders Antibiotic: Cefdinir. Encouraged use of Tylenol or Ibuprofen as needed, other symptomatic treatments were discussed. Anticipatory guidance was reviewed. Patient/Family indicates understanding of our plan and agrees. Will return for follow up if symptoms persist or worsen. Electronically Signed By: KAELA TRAN APRN, CNP On: 05/21/2017 02:54 PM Source: [employer] POWERCHART Document Id: [id number] documented in this encounter Miscellaneous Notes Miscellaneous - Kaela Tran - 05/21/2017 2:49 PM CDT Adult Product Management Consultant Intake/History Adult Product Management Consultant Intake/History Entered On: 05/21/2017 14:50 CDT Performed On: 05/21/2017 14:49 CDT by KAELA TRAN APRN, CNP Intake Chief Complaint : ear pain Temperature Core : 36.7 DegC(Converted to: 98.1 DegF) Peripheral Pulse Rate : 88 /min Systolic Blood Pressure : 122 mmHg Diastolic Blood Pressure : 76 mmHg NIBP Mean : 91 mmHg SpO2 : 99 % Oxygen Therapy : Room air KAELA TRAN APRN, CNP - 05/21/2017 14:49 CDT General Info Information Given By : Patient, Mother Languages : Czech Is Patient Female and 13-50 no hysterectomy : Yes Status : Patient denies Are you ? : No TRAN KAELA Anya DANGELO [facility] 05/21/2017 14:49 CDT Subjective Pain Symptoms : Yes TRAN KAELA Anya DANGELO [employer] - 05/21/2017 14:49 CDT Pain Scale Pain Scale Verbal 0-10 : Open KAELA TRAN Anya DANGELO [employer] - 05/21/2017 14:49 CDT Pain Pain Assessment Grid Pain 1 Location : Ear Laterality : Left MARC KAELA Joyner APRN [employer] - 05/21/2017 14:49 CDT Dependent Habits Smoking Status : Never smoker Tobacco 2A : No Tobacco Use/Currently Using : No Tobacco Use/Last 30 Days : No Tobacco Use/Last 12 months : No KAELA TRAN APRN [facility] 05/21/2017 14:49 CDT Caffeine Use Grid Caffeine Use : Current Type : Soft drinks Frequency : Occasionally TRAN KAELA Joyner APRN [facility] 05/21/2017 14:49 CDT Recreational Drug Use Grid Drug Use : None KAELA TRAN APRN [facility] 05/21/2017 14:49 CDT Source: [employer] Document Id: [id number]!39 documented in this encounter Plan of Treatment Not on filedocumented as of this encounter Visit Diagnoses Not on filedocumented in this encounter Additional Health Concerns Assessment Noted Time PHQ-9 Depression Total Score: 3 05/08/2015 12:01 AM CD T documented as of this encounter Care Teams Humanities Instructor Relationship Specialty Start Date End Date Clari Bone M.D. PCP - General 03/14/17 03/03/18 [address] [place] [address] documented as of this encounter
--- OUTSIDE RECORDS SUMMARY | 2022-08-20 00:44 | XMS_ITS | Encounter Summary ---
:2000 Author Organization [facility] Address [address] [place] [address] Care Team Providers Name Role Phone Unavailable Primary Care Provider Unavailable Encounter Details Date Type Department Care Team Description 08/24/2015 Hospital Encounter HX [facility] Ofelia Aguilar L.P. Social History Tobacco Use Types Packs/Day Years [...] or relatives? How often do you attend shinto or More than 4 times per year 04/05/2022 buddhism services? Do you belong to any clubs or Yes 04/05/2022 organizations such as shinto groups, unions, fraternal or athletic groups, or [...]
--- OUTSIDE RECORDS SUMMARY | 2022-08-20 00:44 | XMS_ITS | Encounter Summary ---
:2000 Author Organization [facility] Address [address] [place] [address] Care Team Providers Name Role Phone Brody Mccray M.D. Primary Care Provider Encounter Details Date Type Department Care Team Description 04/13/2019 Orders Only Department of Sports Zoila Shah Pai n [facility] Medicine in [facility] .[facility]. (Primary Dx) [place] [address] [facility] [address] [place] [id number] [phone] Social History Tobacco Use Types Packs/Day Years [...] More than 4 times per year 04/05/2022 mosque services? Do you belong to any clubs [...] place to sleep or slept in a long term (including now)? Sex Assigned at Date Recorded Not on file documented as of this encounter Plan of Treatment Not on filedocumented as of this encounter Results DX Hip And Pelvis [...] lesion in the left femoral head. Alfonso Jane M.D. IMHarry DIAGNOSTIC IMAGING PROCE BONNIE documented in this encounter Visit Diagnoses Diagnosis Pain Thigh Left - Primary Pain Thigh Left documented in this encounter Additional Health Concerns Assessment Noted Time PHQ-9 Depression Total Score: 3 05/08/2015 12:01 AM CD T documented as of this encounter Care Teams Outside Plant Cable Engineer Relationship Specialty Start Date End Date Brody Mccray M.D. PCP - General 03/04/18 04/05/20 [address] [place] [address] documented as of this encounter
--- OUTSIDE RECORDS SUMMARY | 2022-08-20 00:44 | XMS_ITS | Encounter Summary ---
:2000 Author Organization [facility] Address [address] [place] [address] Care Team Providers Name Role Phone Unavailable Primary Care Provider Unavailable Encounter Details Date Type Department Care Team Description 09/22/2015 Hospital Encounter HX [facility] Chanel Espitia M.D. [address] [place] [address] (Wo rk) Social History Tobacco Use Types [...] or slept in a [facility] (including now)? Sex Assigned at Date Recorded Not on file documented as of this encounter Miscellaneous Notes Telephone Encounter - Conversion, Historical Provider Ser - 06/12/2017 10:16 AM CDT [facility] pcp Document Contains Addenda Addendum by SHARRON ELLIS on June 12, 2017 10:50:54 CDT Correct phone number is [phone]. Called mom and directed her to nurse line. Addendum by OSITO CASSIDY LPN on June 12, 2017 10:41:46 CDT From: OSITO CASSIDY LPN ( Agerter/Smitha/Keely/Dwayne/Santa Nurse) To: Call Center Electronic News Gathering Editor; Sent: 06/12/2017 10:41:46 CDT Subject: RE: [facility] pcp Phone number listed below is incorrect. Please contact pt. back and assist with transferring to expert RN line for new symptoms. Thank you From: SHARRON ELLIS ( Call Center Electronic News Gathering Editor) To: AU Marlen/Smitha/Keely/Dwayne/Santa Nurse; Sent: 06/12/2017 10:16:18 CDT Subject: [facility] pcp CALLER NAME/RELATIONSHIP: Nighat Isidro / [facility] FACILITY/WING: CALL BACK #: [phone] REASON FOR CALL: Has ear infection and would like a medication please. Source: [facility] POWERCHART Document Id: [id number] Miscellaneous - Tomeka Gusman - 06/11/2017 10:06 AM CDT *Medication Refill Msg Document Contains Addenda Addendum by CHANEL ESPITIA MD on June 17, 2017 13:59:21 CDT From: CHANEL ESPITIA MD Sent: 06/17/2017 13:59:21 CDT Subject: RE:Med Management Approved Order:cefdinir (Omnicef 300 mg oral capsule) 1 cap(s) PO 2xDay Qty: 14 cap(s) Duration: 7 day(s) Refills: 0 Substitutions Allowed Route To [facility]acy - [facility] Signed by CHANEL ESPITIA MD 06/17/2017 13:59:14 Addendum by VERÓNICA KRAUSE CMA on June 17, 2017 13:36:27 CDT From: VERÓNICA KRAUSE CMA (MADINA Benites/Keely/Dwayne/Santa Nurse) To: CHANEL ESPITIA MD; Sent: 06/17/2017 13:36:27 CDT Subject: Med Management On hold pending signature Order:cefdinir (Omnicef 300 mg oral capsule) 1 cap(s) PO 2xDay Qty: 14 cap(s) Duration: 7 day(s) Refills: 0 Substitutions Allowed Route To Pharmacy - [facility] Addendum by SOREN WATKINS LPN on June 11, 2017 11:02:45 CDT no an, lm to return call From: TOMEKA GUSMAN ([place] Health Box Covering Machine Operator) To: MADINA Benites/Keely/Dwayne/Santa Nurse; Sent: 06/11/2017 10:06:29 CDT Subject: *Medication Refill Msg Caller is: ( ) Patient ( ) Mother ( ) Father ( ) Spouse ( ) Daughter ( ) Son ( ) Pharmacy ( ) Other: Provider: DR. CHANEL ESPITIA [facility]acy: [facility] : 2000 Name of Medications Needing Refill: CEFDINIR 300 MG CAPS, TAKE ONE CAPSULE BY MOUTH TWICE A DAY FOR TEN DAYS. QTY: 20 Last Refill Date: 05/21/2017 Additional Information: Unable to propose; not on active med list, original script given in [facility] on 05/21/2017. Last / Future Appointment: Disposition: ( ) Send to Pharmacy ( ) Call to Pharmacy ( ) Patient will hop picker Script ( ) Mail Rx to Patient Source: [facility] POWERCHART Document Id: [id number] Miscellaneous - Osito Cassidy L.P.NAzul - 10/16/2016 11:17 AM CST medication refill Document Contains Addenda Addendum by OSITO CASSIDY LPN on October 16, 2016 11:42:13 REGISTERED RESPIRATORY THERAPIST Pts. mom notified of below information and she verbalized understanding. Addendum by CHANEL ESPITIA MD on October 16, 2016 11:26:23 REGISTERED RESPIRATORY THERAPIST From: CHANEL ESPITIA MD To: MADINA Benites/Keely/Dwayne/Santa/Magnolia Nurse; Sent: 10/16/2016 11:26:23 REGISTERED RESPIRATORY THERAPIST Subject: RE: medication refill refill sent to [facility]. Addendum by CHANEL ESPITIA MD on October 16, 2016 11:26:13 REGISTERED RESPIRATORY THERAPIST Submitted: Order:tretinoin topical (tretinoin 0.01% topical gel) 1 sarabjit Topical Bedtime Qty: 30 gm Refills: 3 Substitutions Allowed Route To Pharmacy - [facility] Signed by CHANEL ESPITIA MD 10/16/2016 11:25:57 From: OSITO CASSIDY LPN (MADINA Benites/Keely/Dwayne/Santa/Magnolia Nurse) To: CHANEL ESPITIA MD; Sent: 10/16/2016 11:17:50 REGISTERED RESPIRATORY THERAPIST Subject: medication refill Spoke to pts. mom. Requesting a refill on her acne gel but unable to request through pharmacy due to not having prescription number. Please advise on refill. Source: [facility] POWERCHART Document Id: [id number] Electronically signed by Max [facility] Laboratory Scientist [id number] at 02/25/2017 11:38 AM CDT Telephone Encounter - Conversion, Historical Provider Ser - 04/30/2016 3:21 PM CDT [facility] Document Contains Addenda Addendum by DARRELL REES CMA on May 02, 2016 09:12:20 CDT Pt's mom calling asking for a copy of the pt's last apx dictation. Transferred mom to DILIA dept Addendum by MARTA KRAUS LPN on May 02, 2016 09:09:13 CDT no answer Addendum by HERBER PRASAD ELEMENTARY SCIENCE TEACHER Student on May 01, 2016 09:20:50 CDT No answer. Left message to return call. Addendum by DARRELL REES CMA on April 30, 2016 15:35:49 CDT DILIA for Rubi expires on 05/10/16. Addendum by DARRELL REES CMA on April 30, 2016 15:35:26 CDT Left message with family member for Rubi to return call. From: SHARRON ELLIS ( Call Center Electronic News Gathering Editor) To: MADINA Gee/Smitha/Keely/Dwayne/Santa/Magnolia Nurse; Sent: 04/30/2016 15:21:11 CDT Subject: [facility] CALLER NAME/RELATIONSHIP: Rubi Isidro / Mother FACILITY/WING: CALL BACK #: [phone] REASON FOR CALL: Would like to ask you px that was done. Source: [facility] POWERCHART Document Id: [id number] documented in this encounter Plan of Treatment Not on filedocumented as of this encounter Visit Diagnoses Not on filedocumented in this encounter Additional Health Concerns Assessment Noted Time PHQ-9 Depression Total Score: 3 05/08/2015 12:01 AM CD T documented as of this encounter
--- OUTSIDE RECORDS SUMMARY | 2022-08-20 00:44 | XMS_ITS | Encounter Summary ---
:2000 Author Organization [facility] Address [address] [place] [address] Care Team Providers Name Role Phone Unavailable Primary Care Provider Unavailable Encounter Details Date Type Department Care Team Description 08/09/2015 Hospital Encounter HX [facility] Ofelia [...] More than 4 times per year 04/05/2022 mandaen services? Do you belong to any clubs [...]
--- OUTSIDE RECORDS SUMMARY | 2022-08-20 00:44 | XMS_ITS | Encounter Summary ---
:2000 Author Organization [facility] Address [address] [place] [address] Care Team Providers Name Role Phone Unavailable Primary Care Provider Unavailable Encounter Details Date Type Department Care Team Description 03/25/2015 Hospital Encounter HX [facility] Chanel Espitia M.D. [address] [place] [phone] (Wo rk) Social History Tobacco Use Types [...] or relatives? How often do you attend pentecostal or More than 4 times per year 04/05/2022 uatsdin services? Do you belong to any clubs or Yes 04/05/2022 organizations such as pentecostal groups, unions, fraternal or athletic groups, or [...] place to sleep or slept in a senior care (including now)? Sex Assigned at Date Recorded Not on file documented as of this encounter Last Filed Vital Signs Vital Sign Reading Time Taken Comments Blood Pressure - - Pulse - - Temperature - - Respiratory Rate - - Oxygen Saturation - - Inhaled Oxygen Concentration - - Weight 57 kg (125 lb 10.6 oz) 03/25/2015 11:43 AM CDT Height 170 cm (5' 6.93) 03/25/2015 11:43 AM CDT Body Mass Index 19.72 03/25/2015 11:43 AM CDT Body Mass Index Percentile 56.22 % 03/25/2015 11:43 AM C DT Growth Chart: [facility] (Girls, 2-20 Years) documented in this encounter Miscellaneous Notes Miscellaneous - Conversion, Historical Provider Ser - 05/03/2015 1:41 PM CDT MELVI Document Contains Addenda Addendum by SHARRON LE RN on 04 May 2015 13:25:57 CDT see other task From: DEBBIE YOON ( [employer] [facility] [employer]) To: MADINA Psychiatrist Nurse; Sent: 05/03/2015 13:41:31 CDT Subject: MELVI Caller Name/Relationship MADHU [employer] Call Back # [phone] Reason For Call RETURNING YOUR CALL FROM TODAY. Source: [facility] POWERCHART Document Id: [id number] Miscellaneous - Conversion, Historical Provider Ser - 04/29/2015 1:19 PM CDT Melvi Document Contains Addenda Addendum by SHARRON LE RN on 03 May 2015 10:03:58 CDT left detailed message on [facility] voicemail Addendum by TOM OGDEN DO on 03 May 2015 09:47:13 CDT From: TOM OGDEN DO To: MADINA Psychiatrist Nurse; Sent: 05/03/2015 09:47:13 CDT Subject: RE: Melvi ER visit. This should not wait 2 weeks. Addendum by SHARRON LE RN on 03 May 2015 09:41:10 CDT From: SHARRON LE RN ( Psychiatrist Nurse) To: TOM OGDEN DO; Sent: 05/03/2015 09:41:10 CDT Subject: FW: Melvi Addendum by SHARRON LE RN on 03 May 2015 09:41:06 CDT -requesting to be on cancelation list for Dr. Ogden (appt 05/23) mom states pt has starting cutting past 2 weeks making comments of committing suicided, jumping out of window has not acted on this. -does not have a therapist From: MARIYA BERNARD ( [employer] [facility] [employer]) To: Psychiatrist Nurse; Sent: 04/29/2015 13:19:06 CDT Subject: Melvi Caller Name/Relationship [facility] Call Back # [phone] Reason For Call would like a call back [facility] Document Id: [id number] Miscellaneous - Conversion, Historical Provider Ser - 04/27/2015 8:21 AM CDT MELVI Document Contains Addenda Addendum by SHARRON LE RN on 27 April 2015 15:33:44 CDT spoke with yolanda scherer on cancel list.. will call [phone] per his request From: DEBBIE YOON ( [employer] [facility] [employer]) To: Psychiatrist Nurse; Sent: 04/27/2015 08:21:48 CDT Subject: MELVI Caller Name/Relationship DEREK SEAMAN [facility] Call Back # [phone] Reason For Call PT HAS A NEW PT APPT 05/[address] OGDEN. WONDERING IF YOU CAN SQUEEZE HER IN SOONER, NO OPENINGS AVAILABLE. [facility] Document Id: [id number] Miscellaneous - Genna Dupree R.N. - 03/25/2015 4:45 PM CDT Ambulatory Patient Summary [facility] [address] [place], [place] [id number] Visit Information Name: MAL JIMMYVIPUL ZULUAGA [facility] Number: [id number] Current Date: 03/25/2015 16:45:53 Physicians Attending Provider: CHANEL ESPITIA MD Primary Care Provider: CHANEL ESPITIA MD MALCÉSAR MACHEL ZAN has been given the following list of [...] sarabjit, Topical, once a day (at bedtime) New Routed to [facility] [address] [place] [address] Stop Taking the Following Medications: Medication list as of 03-25-15 16:45 Attention: If you have any medications at home that are not on this list, DO NOT take them until youcontact your provider for clarification. Give a copy of your medication list to your primary care provider. Update your medication list any time medications or doses are changed and carry your medication list at all times in case of emergency. Electronically Signed By: CHANEL ESPITIA MD Signed On:25-MAR-2015 12:47:59 Your Allergies & Intolerances Substance Reaction Symptoms Category Comments penicillin G potassium hives Drug Your Problem List Problem Status Onset Comments No Chronic Problems Active Routine general medical exam Active Your Upcoming Appointments Date Time Location Provider No Appointments found Attention: Contact your [...] if you dont have one. Go to [email or web address] and click on Create Your Account. Then, follow the directions to complete the online form. Youll be asked for your [facility] number which you can find at the top of this document. Your Goals/Additional instructions: Source: [facility] POWERCHART Document Id: [id number] Miscellaneous - Genna Dupree R.N. - 03/25/2015 4:45 PM CDT Ambulatory Discharge Medication List [facility] [address] [place], [place] [id number] Visit Information Name: JIMMY ISIDRO [facility] Number: [id number] Visit Date: 03/25/2015 16:45:52 Attending Provider: CHANEL ESPITIA MD Primary Care Provider: CHANEL ESPITIA MD JIMMY [...] sarabjit, Topical, once a day (at bedtime) New Routed to [facility] [address] [place] [address] Stop Taking the Following Medications: Medication list as of 03-25-15 16:45 Attention: If you have any medications at home that are not on this list, DO NOT take them until youcontact your provider for clarification. Give a copy of your medication list to your primary care provider. Update your medication list any time medications or doses are changed and carry your medication list at all times in case of emergency. Electronically Signed By: CHANEL ESPITIA MD Signed On:25-MAR-2015 12:47:59 Additional Information: Source: [facility] POWERCHART Document Id: [id number] Telephone Encounter - Conversion, Historical Provider Ser - 03/25/2015 12:50 PM CDT *Phone Message Document Contains Addenda Addendum by LAURIE VICENTE on 25 March 2015 14:09:27 CDT Left message regarding pkt and mailed Addendum by SHARRON LE RN on 25 March 2015 13:56:56 CDT From: SHARRON LE RN ( Psychiatrist Nurse) To: [facility] [employer]; Sent: 03/25/2015 13:56:56 CDT Subject: FW: *Phone Message Addendum by SHARRON LE RN on 25 March 2015 13:56:42 CDT psychiatrist per parent request packet please From: LETY DESAI ( [facility] [employer]) To: Psychiatrist Nurse; Sent: 03/25/2015 12:50:29 CDT Subject: *Phone Message Caller is: ( ) Patient ( ) Mother ( ) Father ( ) Spouse ( ) Daughter ( ) Son ( ) Pharmacy ( ) Other: Physician: Patient MRN #: Reason for Call: Message: Referral per Dr. Espitia; re anxiety and depression. Thanks. Advice/Action: Source used: ( ) Verbalizes understanding of instructions ( ) Instructed to call back if symptoms worsen or do not resolve ( ) Refused to see provider ( ) Appointment Scheduled ( ) OK to leave message on voice mail ( ) Patient told to expect return call: ( ) today ( ) tomorrow ( ) next work day ( ) Patient's email ( ) Patient told physician out of office, will call upon return call on ( ) ( ) Patient told physician out of office, routed to other physician ( ) Other ( ) Call back telephone number ( ) Call back cell phone number ( ) Source: [facility] ServiceTrade Document Id: [id number] Miscelltricia - Mk Rollins L.P.N. - 03/25/2015 11:43 AM CDT Pediatric Esl Instructional Assistant Intake/History Pediatric Esl Instructional Assistant Intake/History Entered On: 03/25/2015 11:46 CDT Performed On: 03/25/2015 11:43 CDT by MK ROLLINS LPN Intake Chief Complaint : well teen visit Temperature Core : 37 DegC(Converted to: 98.6 DegF) Peripheral Pulse Rate : 80 /min Systolic Blood Pressure : 110 mmHg Diastolic Blood Pressure : 68 mmHg NIBP Mean : 82 mmHg BP Location : Left upper extremity Blood Pressure Cuff Size : Regular Height : 170 cm(Converted to: 5 ft 7 inch(es), 67 inch(es)) Actual Weight : 57 kg(Converted to: 125 lb 11 oz) Weight Source : Standing scale Dosing Weight Clinic : 57 kg Clinic BSA : 1.64 Body Mass Index : 19.72 kg/m2 MK ROLLINS LPN - 03/25/2015 11:43 CDT General Info Languages : Slovenian Is Patient Female and 13-50 no hysterectomy : Yes Status : Patient denies Are you ? : No MK ROLLINS LPN - 03/25/2015 11:43 CDT Subjective Pain Symptoms : No MK ROLLINS LPN - 03/25/2015 11:43 CDT Dependent Habits Tobacco Use/Currently Using : No Smoking Status : Never smoker MK ROLLINS LPN - 03/25/2015 11:43 CDT Caffeine Use Grid Caffeine Use : Current Type : Soft drinks Frequency : Occasionally MK ROLLINS LPN - 03/25/2015 11:43 CDT Source: [facility] ServiceTrade Document Id: [id number] CDT!31 Miscellaneous - Mk Rollins LAzulP.N. - 03/25/2015 11:43 AM CDT PHQ-9 - Teens PHQ-9 - Teens Entered On: 03/25/2015 11:47 CDT Performed On: 03/25/2015 11:43 CDT by MK ROLLINS LPN PHQ-9 - Teens Feeling down, depressed, or hopeless : Several days Little interest or pleasure in doing things : Several days Trouble falling or staying asleep, or sleeping too much : Nearly every day Poor appetite or overeating : Several days Feeling tired or having little energy : Nearly every day Feeling bad about yourself or that you are a failure : More than half the days Trouble concentrating on things : Several days Moving or speaking slowly; restless or fidgety : Not at all Thoughts that you would be better off /hurting self : Not at all PHQ-9 Score for Teens : 12 Depressed or sad most days : Yes Problems make work, home, or dealing with others : Somewhat difficult Serious thoughts about ending your life : No Ever try to kill yourself : No MK ROLLINS LPN - 03/25/2015 11:43 CDT Source: [employer] Document Id: [id number] CDT!16 documented in this encounter Plan of Treatment Not on filedocumented as of this encounter Visit Diagnoses Not on filedocumented in this encounter Additional Health Concerns Assessment Noted Time PHQ-9 Depression Total Score: 12 03/25/2015 11:43 AM C DT documented as of this encounter
--- OUTSIDE RECORDS SUMMARY | 2022-08-20 00:44 | XMS_ITS | Encounter Summary ---
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 Laterality Blood 05/05/2015 10:21 PM CDT Dagmar Grissom D.O. LAB BLOOD ADD-ON Performing Organization Address City/[facility]/ZIP Code Phon e Number POWERCHART (ABNORMAL) Salicylate Level (05/05/2015 10:21 PM CDT) P athologist Signature Salicylate, S <0.5 (L) 3.0 - 30.0 POWERCHART MGDL Comment: Adult therapeutic concentration: 3-10 mg /dL Toxic concentration: > 30 mg/dL Specimen (Source) Anatomical Collection Method Collection Time Re ceived Time Location / / Volume Laterality Blood 05/05/2015 10:21 PM CDT Dagmar Grissom D.O. LAB BLOOD ADD-ON Performing Organization Address [facility] Code Phon e Number POWERCHART Acetaminophen Level (05/05/2015 10:21 PM CDT) P athologist Signature Acetaminophen, <15 10 - 30 POWERCHART S MCGML Comment: The therapeutic range varies and has bee n reported to be 10-30 mcg/mL. Toxic manifestations have been observed at serum concentrations >100 mcg/mL, however the toxic range is generally reported at >200 mcg/mL. Specimen (Source) Anatomical Collection Method Collection Time Re ceived Time Location / / Volume Laterality Blood 05/05/2015 10:21 PM CDT Dagmar Grissom D.O. LAB BLOOD ADD-ON Performing Organization Address City/[facility] Code Phon e Number POWERCHART BMP (Basic Metabolic Panel) (05/05/2015 10:21 PM CDT) P athologist Signature Sodium, S 137 136 - 145 POWERCHART MMOLL Comment: Reference values have not been established for patients that are less than 12 months of age. Potassium, S 3.8 3.5 - 5.1 MMOLL POWERCHART Comment: Reference values have not been established for patients that are less than 12 months of age. Chloride, S 100 98 - 107 MMOLL POWERCHART Comment: Reference values have not been established for patients that are less than 12 months of age. CO2 Total 23 22 - 29 MMOLL POWERCHART Comment: Reference values have not been established for patients that are less than 12 months of age. BUN (Blood Urea Nitrogen), S 16 5 - 18 MGDL POWERCHART Creatinine 0.75 0.46 - 0.77 MGDL POWERCHART Comment: Reference values have not been establish ed for patients that are <12 months of age. ESTIMATED GFR >60 mL/min/BSA Note: eGFR results will not be calculate d for patients <18 Calcium, Total, S 9.6 8.4 - 10.2 MGDL POWERC MAGAÑA Anion Gap 13 7 - 15 MMOLL POWERCHART Comment: Less than 2 years- No establish ed reference range. HXeGFR (MDRD) Not performed. >=60 [id number] POWER CHART eGFR Black/ Not performed. >=60 [id number] POWERCHART Glucose 106 70 - 139 MGDL POWERCHART Comment: ADA Diagnostic Criteria: -Fasting glucose > or = 126 mg/dL after an 8 hr fast OR -2-Hr glucose > or = to 200 mg/dL during a 75 gram oral load OR -Glucose casual (random) glucose > or = 200 mg/dL plus typical symptoms 3-Hour Glucose Tolerance Diagnostic Cut- offs (after an 8-hour fast): Fasting >=95 mg/dL 1 Hour >=180 mg/dL 2 Hour >=155 mg/dL 3 Hour >=140 mg/dL Reference values have not been establish ed for patients that are less than 12 months of age. Specimen (Source) Anatomical Collection Method Collection Time Re ceived Time Location / / Volume Laterality Blood 05/05/2015 10:21 PM CDT Dagmar Grissom D.O. LAB BLOOD ADD-ON Performing Organization Address City/State/ZIP Code Phon e Number POWERCHART Breath Alcohol (ETOH), POCT (05/05/2015 9:45 PM CDT) P athologist Signature HXBreath .000 POWERCHART [facility] Comment: Reference Range: ??0.000 Legal Limit in [place]: ??<0.080 Specimen (Source) Anatomical Collection Method Collection Time Re ceived Time Location / / Volume Laterality Respiratory 05/05/2015 9:45 PM CDT Dagmar Grissom D.O. LAB POCT ORDERABLES-MANUAL Performing Organization Address City/State/[facility] Code Phon e Number POWERCHART Test, Qualitative, Urine (05/05/2015 9:40 PM CDT) [facility] Method Time Signature HXBeta-hCG Negative Negative POWERCHART Qualitative Urine Specimen (Source) Anatomical Collection Method Collection Time Re ceived Time Location / / Volume Laterality Urine 05/05/2015 9:40 PM CDT Dagmar Grissom D.O. LAB URINE ORDERABLES Performing Organization Address [facility] Phon e Number POWERCHART Drug Screen Urine (05/05/2015 9:40 PM CDT) [facility] Method Time Signature Carboxy-THC Negative POWERCHART Immunoassay Screen Comment: Screening Cutoff Concentrations: 50 ng/mL HX U Phencyclidine Negative POWERCHART Comment: Screening Cutoff Concentrations: 25 ng/mL Cocaine Negative POWERCHART Comment: Screening Cutoff Concentrations: 150 ng/mL Amphetamine/Methamphetamine, Urine Negative POWERCHART Comment: Screening Cutoff Concentrations: 500 ng/mL Opiates Negative POWERCHART Comment: Screening Cutoff Concentrations: 100 ng/mL HXU Amphet Scrn Negative POWERCHART Comment: Screening Cutoff Concentrations: 500 ng/mL HX U Benzodia Scrn Negative POWERCHART Comment: Screening Cutoff Concentrations: 150 ng/mL HXU Tricyclic Scr Negative POWERCHART Comment: Screening Cutoff Concentrations: 300 ng/mL Methadone Immunoassay Screen Negative P OWERCHART Comment: Screening Cutoff Concentrations: 200 ng/mL Barbiturates Negative POWERCHART Comment: Screening Cutoff Concentrations: 200 ng/mL Oxycodone-by LC-MS/MS Negative POWERCHA RT Comment: Screening Cutoff Concentrations: 100 ng/mL Propoxyphene Negative POWERCHART Comment: Screening Cutoff Concentrations: 300 ng/mL Buprenorphine, U Negative POWERCHART Comment: Screening Cutoff Concentrations: 10 ng/mL Comment See Comment POWERCHART Comment: For medical purposes only. Specimen (Source) Anatomical Collection Method Collection Time Re ceived Time Location / / Volume Laterality Urine 05/05/2015 9:40 PM CDT Dagmar Grissom D.O. LAB URINE ORDERABLES Performing Organization Address City/[facility] Phon e Number POWERCHART documented in this encounter Visit Diagnoses Not on filedocumented in this encounter Additional Health Concerns Assessment Noted Time PHQ-9 Depression Total Score: 12 03/25/2015 11:43 AM C DT documented as of this encounter
--- OUTSIDE RECORDS SUMMARY | 2022-08-20 00:44 | XMS_ITS | Encounter Summary ---
:2001 Author Organization [facility] Address [address] [place] [address] Care Team Providers Name Role Phone Brody Mccray M.D. Primary Care Provider Encounter Details Date Type Department Care Team Description 04/07/2019 Clinical Communication Department of Haydee Bernstein, Integrative Medicine in [place], [place] [address] [place] [address] [place] [phone] Social History Tobacco Use Types Packs/Day Years [...] place to sleep or slept in a residential (including now)? Sex Assigned at Date Recorded Not on file documented as of this encounter Miscellaneous Notes Telephone Encounter - Mag Morrison - 04/08/2019 12:27 PM CDT Appt request made Telephone Encounter - Danitza Yusuf C.M.A. - 04/07/2019 10:41 AM CDT Please call and offer appt per message from KK Telephone Encounter - Haydee Bernstein P.A.-C. - 04/07/2019 9:35 AM CDT I'd be happy to see this patient. We would not get any imaging beforehand, I'd want to see her first. They could see any provider. Telephone Encounter - Emely Jordan L.P.N. - 04/07/2019 8:55 AM CDT Mom states patient has been having problems with her left hamstring since November. 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 She noticed in track this year that something popped in her leg, which disabled her from participating in track. She has been [facility] to get her through the track season. She was running/jumping yesterday and stated that it felt like it did when she felt the pop in her leg. No swelling/redness reported. She does ice PRN. Mom does not have a preference on a provider to see, but she is wondering if any imaging can be done prior to get in sooner? I did advise mom that likely the provider she would see would like to evaluate prior to ordering imaging. Please advise, thanks. Telephone Encounter - Alyssa Glass - 04/07/2019 8:38 AM CDT Pt's father called in to request an appt with KK. First opening is Apr.30, he stated that Mingo referred them to [facility] and wondering if we can get any tests ordered to determine if she should be seen sooner. (reason for appt is, pt has been having issues with her left leg) documented in this encounter Plan of Treatment Not on filedocumented as of this encounter Visit Diagnoses Not on filedocumented in this encounter Additional Health Concerns Assessment Noted Time PHQ-9 Depression Total Score: 3 05/08/2015 12:01 AM CD T documented as of this encounter Care Teams Mustanger Relationship Specialty Start Date End Date Brody Mccray M.D. PCP - General 03/04/18 04/05/20 [address] [place] [phone] documented as of this encounter
--- OUTSIDE RECORDS SUMMARY | 2022-08-20 00:44 | XMS_ITS | Encounter Summary ---
:2001 Author Organization [facility] Address [address] [place] [address] Care Team Providers Name Role Phone Clari Bone M.D. Primary Care Provider Reason for Visit Reason Onset Date Comments Personal Problem 09/10/2017 Appointment 09/10/2017 Encounter Details Date Type Department Care Team Description 09/10/2017 Clinical Communication Department of Clari Bone onal Problem; Family MedicinePetra M.D. Appointment [facility], in [address] [place], [place] [address] [place] [address] [place], [place] [phone] (Work) [phone] Social History Tobacco Use Types Packs/Day Years [...] More than 4 times per year 04/05/2022 jehovah's witness services? Do you belong to any clubs [...] or slept in a retirement (including now)? Sex Assigned at Date Recorded Not on file documented as of this encounter Miscellaneous Notes Telephone Encounter - Osito Cassidy L.P.N. - 09/11/2017 1:36 PM CST Talked with patient's mom Rubi. Patient had a half day a school today, has practice at 3:00, and plans on coming in now. Patient booked on for office visit. TEST WORKER Telephone Encounter - Shweta Ramos, C.M.A. - 09/11/2017 11:40 AM CST Macy has had a few ear inf, mom has [facility] and was given [facility]. But they keep coming back. Mom would like you to take a look at her. Macy feels like she is starting to get another one. Having some Left ear pain. Please advise on a time that will work for you. TEST WORKER Telephone Encounter - Yashira Whalen - 09/10/2017 11:31 AM CST Mom would like soon appt for her daughter. Reason for visit- Personal TEST WORKER documented in this encounter Plan of Treatment Not on filedocumented as of this encounter Visit Diagnoses Not on filedocumented in this encounter Additional Health Concerns Assessment Noted Time PHQ-9 Depression Total Score: 3 05/08/2015 12:01 AM CD T documented as of this encounter Care Teams Concrete Float Maker Relationship Specialty Start Date End Date Clari Bone M.D. PCP - General 03/14/17 03/03/[address] [place] [address] documented as of this encounter
--- OUTSIDE RECORDS SUMMARY | 2022-08-20 00:44 | XMS_ITS | Encounter Summary ---
:2000 Author Organization [facility] Address [address] [place] [address] Care Team Providers Name Role Phone Unavailable Primary Care Provider Unavailable Encounter Details Date Type Department Care Team Description 06/23/2015 Hospital Encounter [facility]X [facility] Ofelia [...]
--- OUTSIDE RECORDS SUMMARY | 2022-08-20 00:45 | XMS_ITS | Encounter Summary ---
:2001 Author Organization [facility] Address [address] [place] [address] Care Team Providers Name Role Phone Unavailable Primary Care Provider Unavailable Encounter Details Date Type Department Care Team Description 12/25/2007 Hospital Encounter [facility]X [facility] Provider, Historic al Social History Tobacco Use Types Packs/Day Years [...] or relatives? How often do you attend hindu or More than 4 times per year 04/05/2022 advent services? Do you belong to any clubs or Yes 04/05/2022 organizations such as hindu groups, unions, fraternal or athletic groups, or [...]
--- OUTSIDE RECORDS SUMMARY | 2022-08-20 00:45 | XMS_ITS | Encounter Summary ---
:2001 Author Organization [facility] Address [address] [place] [address] Care Team Providers Name Role Phone Unavailable Primary Care Provider Unavailable Encounter Details Date Type Department Care Team Description 09/17/2003 Hospital Encounter HX [facility] Lori Leone M .D. [address] [place] [address] (Wo rk) Social History Tobacco Use Types [...] More than 4 times per year 04/05/2022 pentecostal services? Do you belong to any clubs [...]
--- OUTSIDE RECORDS SUMMARY | 2022-08-20 00:45 | XMS_ITS | Encounter Summary ---
:[address] [facility] Address [address] [place] [address] Care Team Providers Name Role Phone Unavailable Primary Care Provider Unavailable Encounter Details Date Type Department Care Team Description 11/05/2005 Hospital Encounter [facility]X [facility] Provider, Ralph monahan Social History Tobacco Use Types Packs/Day Years [...]
--- OUTSIDE RECORDS SUMMARY | 2022-08-20 00:45 | XMS_ITS | Encounter Summary ---
:2000 Author Organization [facility] Address [address] [place] [address] Care Team Providers Name Role Phone Unavailable Primary Care Provider Unavailable Encounter Details Date Type Department Care Team Description 09/21/2003 Hospital Encounter [facility] Provider, Ralph monahan Social History Tobacco Use [...]
--- OUTSIDE RECORDS SUMMARY | 2022-08-20 00:45 | XMS_ITS | Encounter Summary ---
:2001 Author Organization [facility] Address [address] [place] [address] Care Team Providers Name Role Phone Unavailable Primary Care Provider Unavailable Encounter Details Date Type Department Care Team Description 11/16/2002 Hospital Encounter [facility]X [facility] Provider, [...] More than 4 times per year 04/05/2022 episcopal services? Do you belong to any clubs [...] or slept in a correction (including now)? Sex Assigned at Date Recorded Not on file documented as of this encounter Plan of Treatment Not on filedocumented as of this encounter Visit Diagnoses Not on filedocumented in this encounter
--- OUTSIDE RECORDS SUMMARY | 2022-08-20 00:45 | XMS_ITS | Encounter Summary ---
:2001 Author Organization [facility] Address [address] [place] [address] Care Team Providers Name Role Phone Unavailable Primary Care Provider Unavailable Encounter Details Date Type Department Care Team Description 11/24/2002 Hospital Encounter [facility] Provider, [...] or relatives? How often do you attend religious or More than 4 times per year 04/05/2022 gnosticism services? Do you belong to any clubs or Yes 04/05/2022 organizations such as religious groups, unions, fraternal or athletic groups, or [...]
--- OUTSIDE RECORDS SUMMARY | 2022-08-20 00:45 | XMS_ITS | Encounter Summary ---
:2001 Author Organization [facility] Address [address] [place] [address] Care Team Providers Name Role Phone Unavailable Primary Care Provider Unavailable Encounter Details Date Type Department Care Team Description 02/12/2007 Hospital Encounter [facility] Provider, [...] or relatives? How often do you attend temple or More than 4 times per year 04/05/2022 sabianism services? Do you belong to any clubs or Yes 04/05/2022 organizations such as temple groups, unions, fraternal or athletic groups, or [...] place to sleep or slept in a halfway (including now)? Sex Assigned at Date Recorded Not on file documented as of this encounter Plan of Treatment Not on filedocumented as of this encounter Visit Diagnoses Not on filedocumented in this encounter
--- OUTSIDE RECORDS SUMMARY | 2022-08-20 00:45 | XMS_ITS | Encounter Summary ---
:2001 Author Organization [facility] Address [address] [place] [address] Care Team Providers Name Role Phone Unavailable Primary Care Provider Unavailable Encounter Details Date Type Department Care Team Description 09/30/2007 Hospital Encounter [facility] Veda Bone M.D. [address] [place] [phone] (Wo rk) Social History Tobacco Use Types [...] or relatives? How often do you attend baptist or More than 4 times per year 04/05/2022 judaism services? Do you belong to any clubs or Yes 04/05/2022 organizations such as baptist groups, unions, fraternal or athletic groups, or [...]
--- OUTSIDE RECORDS SUMMARY | 2022-08-20 00:45 | XMS_ITS | Encounter Summary ---
:2001 Author Organization [facility] Address [address] [place] [address] Care Team Providers Name Role Phone Unavailable Primary Care Provider Unavailable Encounter Details Date Type Department Care Team Description 11/07/2007 Hospital Encounter [facility] Provider, [...] or relatives? How often do you attend sabianism or More than 4 times per year 04/05/2022 pentecostal services? Do you belong to any clubs or Yes 04/05/2022 organizations such as sabianism groups, unions, fraternal or athletic groups, or [...]
--- OUTSIDE RECORDS SUMMARY | 2022-08-20 00:45 | XMS_ITS | Encounter Summary ---
:2001 Author Organization [facility] Address [address] [place] [address] Care Team Providers Name Role Phone Unavailable Primary Care Provider Unavailable Encounter Details Date Type Department Care Team Description 12/23/2007 Hospital Encounter [facility] Provider, [...] or relatives? How often do you attend adventist or More than 4 times per year 04/05/2022 presybeterian services? Do you belong to any clubs or Yes 04/05/2022 organizations such as adventist groups, unions, fraternal or athletic groups, or [...] place to sleep or slept in a mcc (including now)? Sex Assigned at Date Recorded Not on file documented as of this encounter Plan of Treatment Not on filedocumented as of this encounter Procedures Procedure Name Priority Date/Time Associated Diagnosis Comme nts DX ABDOMEN 1 VIEW Routine 12/23/2007 10:43 AM Res ults for this CDT procedure are i n the results section. documented in this encounter Results DX Abdomen 1 View (12/23/2007 10:43 AM CDT) Anatomical Region Laterality Modality Abdomen N/A Radiographic Imaging Specimen (Source) Anatomical Collection Method Collection Time Re ceived Time Location / / Volume Laterality 12/23/2007 10:43 AM CDT Narrative 12/23/2007 10:43 AM CDT Originally Signed By Contributor_system, [facility]_HX_RAD_SYS Supine abdomen: Indication: Abdominal pain. Impression: Extensive fecal debris recto sigmoid. Otherwise unremarkable bowel gas pattern. Psoas margins are sharp bilaterally. Vis ualized organ silhouettes appear grossly unremarkable. No soft tis kimo calcifications. Electronically Signed 12/23/2007 Reported By: Moo Fernandes ??MD ?? Transcribed: 12/23/2007 ([id number]) ??[facility].AU CC: Luis Felipe Gottlieb MD Procedure Note Provider, Marialuisa Eubanks - 03/05/2017F ormatting of this note might be different from the original. Originally Signed By Contributor_system, [facility]_HX_RAD_SYS Supine abdomen: Indication: Abdominal pain. Impression: Extensive fecal debris recto sigmoid. Otherwise unremarkable bowel gas pattern. Psoas margins are sharp bilaterally. Vis ualized organ silhouettes appear grossly unremarkable. No soft tis kimo calcifications. Electronically Signed 12/23/2007 Reported By: Moo Fernandes MD Transcribed: 12/23/2007 ([id number]) [facility] CC: Luis Felipe Gottlieb MD Historical Provider IMG DIAGNOSTIC IMAGING PROCE DURES documented in this encounter Visit Diagnoses Not on filedocumented in this encounter
--- OUTSIDE RECORDS SUMMARY | 2022-08-20 00:45 | XMS_ITS | Encounter Summary ---
:2001 Author Organization [facility] Address [address] [place] [address] Care Team Providers Name Role Phone Unavailable Primary Care Provider Unavailable Encounter Details Date Type Department Care Team Description 08/22/2010 Hospital Encounter [facility]X [facility] Dom Mtz, D.P.M. [address] [place] [phone] (Wo rk) Social History Tobacco [...] More than 4 times per year 04/05/2022 amish services? Do you belong to any clubs [...] encounter Progress Notes Jean-Pierre Mtz D.P.M. - 08/22/2010 10:40 AM CST Report CLINIC NOTE [place], [place] PATIENT: [id number] NAME: MACY ISIDRO ENCOUNTER: [id number] DATE OF : [birth year] SERVICE DATE: 08/22/10 PROVIDER: Jean-Pierre Mtz D.P.M LOCATION: CLINIC DESCRIPTION: INFECTED INGROWN TOENAIL CHARGES: 37696 OFFICE/OUTPATIENT VISIT, EST DIAGNOSES: 681.11 ONYCHIA OF TOE 078.12 PLANTAR WART DOCUMENT TEXT: Patient Age: 10 Report Dictation DICTATED BY: Jean-Pierre Mtz DPM DATE: 08/22/2010 ASSESSMENT: Verruca left foot. Ingrown nail, left hallux. PLAN: Discussed treatment verruca including continuation of her mmta-qbs-kjsfpac trip preparation, liquid nitrous oxide treatment or surgical removal. Regarding nails, again option given for nail trimming versus permanent removal. After discussion, family decided to set her up for both removal of the verruca and wart under straight local anesthetic. We will see her in the office for this at next visit. SUBJECTIVE: The patient is a 10-year-old female seen for verruca and ingrown nail check. The patient is accompanied by her parents. Father states he had significant problems as a child and ended up to have his ingrown nails removal. They have been treating the verruca with [id number] preparation for about a month with no resolution. Otherwise, healthy 10-year-old female. No other pertinent past medical issues noted. MEDICATIONS: Reviewed. ALLERGIES: Reviewed. REVIEW OF SYSTEMS: The patient denies any circulatory concerns. No neurologic concerns. No biomechanical concerns. Complaint of chronic ingrown nail, left hallux fibular border and plantar wart, left medial heel. OBJECTIVE: Pulses DP and PT are readily palpable. Hair growth is present to the digits. Skin is warm to touch with good temperature, texture and turgor. There is a lesion on the plantar medial heel that does interrupt skin lines, show petechia and bleeding. Has some maceration consistent with use of Salacid on the area. The left hallux fibular nail border is incurvated with slight erythema and tender to palpation. No purulence. CHEMA:oracio cc: Rooming Doc Patient History Social History Marital Status: single Tobacco use or exposure? N Any user of caffeine? N Any recent travel? Y Travel Region(s): [place] Additional Vitals Information Pain: Y (PAIN SCALE OF 6-8) Diabetes: N Information provided by: PATIENT Chief Complaint: LEFT HALLUX AND VERRUCA ON HEEL at 1118. Source: NISREEN AMCHXTRANSXSYS Document Id: [id number] documented in this encounter Plan of Treatment Not on filedocumented as of this encounter Visit Diagnoses Not on filedocumented in this encounter
--- OUTSIDE RECORDS SUMMARY | 2022-08-20 00:45 | XMS_ITS | Encounter Summary ---
:[address] [facility] Address [address] [place] [address] Care Team Providers Name Role Phone Unavailable Primary Care Provider Unavailable Encounter Details Date Type Department Care Team Description 09/27/2009 Hospital Encounter [facility] Clari Bone M.D. [address] [place] [phone] (Wo rk) Social History Tobacco Use Types [...] or relatives? How often do you attend jehovah's witness or More than 4 times per year 04/05/2022 lutheran services? Do you belong to any clubs or Yes 04/05/2022 organizations such as jehovah's witness groups, unions, fraternal or athletic groups, or [...] as of this encounter Progress Notes Clari Bone M.D. - 09/27/2009 7:00 AM CST Report [place], [place] PATIENT: [id number] NAME: MACY RESENDEZ ENCOUNTER: [id number] DATE OF : 01 SERVICE DATE: 09/27/09 PROVIDER: Clari Bone MD LOCATION: CLINIC DESCRIPTION: 2ND DOSE H1N1 SHOT COMING AT 830 CHARGES: 70794 [place] [address] INFLUENZA H1N1 VACCINE ADMIN IM DIAGNOSES: V04.81 ND FOR PROPHYLACTIC VACCIN AND INOCULATION, INFLUENZA Source: [facility] [employer]ANS[employer] Document Id: [id number] documented in this encounter Plan of Treatment Not on filedocumented as of this encounter Visit Diagnoses Not on filedocumented in this encounter
--- OUTSIDE RECORDS SUMMARY | 2022-08-20 00:45 | XMS_ITS | Encounter Summary ---
:2001 Author Organization [facility] Address [address] [place] [address] Care Team Providers Name Role Phone Unavailable Primary Care Provider Unavailable Encounter Details Date Type Department Care Team Description 11/17/2007 Hospital Encounter [facility] Provider, [...] or relatives? How often do you attend adventism or More than 4 times per year 04/05/2022 holiness services? Do you belong to any clubs or Yes 04/05/2022 organizations such as adventism groups, unions, fraternal or athletic groups, or [...]
--- OUTSIDE RECORDS SUMMARY | 2022-08-20 00:45 | XMS_ITS | Encounter Summary ---
:2001 Author Organization [facility] Address [address] [place] [address] Care Team Providers Name Role Phone Unavailable Primary Care Provider Unavailable Encounter Details Date Type Department Care Team Description 11/18/2002 Hospital Encounter [facility] Provider, [...] or relatives? How often do you attend mandaeism or More than 4 times per year 04/05/2022 tenriism services? Do you belong to any clubs or Yes 04/05/2022 organizations such as mandaeism groups, unions, fraternal or athletic groups, or [...] place to sleep or slept in a usp (including now)? Sex Assigned at Date Recorded Not on file documented as of this encounter Plan of Treatment Not on filedocumented as of this encounter Visit Diagnoses Not on filedocumented in this encounter
--- OUTSIDE RECORDS SUMMARY | 2022-08-20 00:45 | XMS_ITS | Encounter Summary ---
:2001 Author Organization [facility] Address [address] [place] [address] Care Team Providers Name Role Phone Unavailable Primary Care Provider Unavailable Encounter Details Date Type Department Care Team Description 07/22/2007 Hospital Encounter [facility] Dana Jones M.D. Social History Tobacco Use Types Packs/Day Years [...] or relatives? How often do you attend tenriism or More than 4 times per year 04/05/2022 jehovah's witness services? Do you belong to any clubs or Yes 04/05/2022 organizations such as tenriism groups, unions, fraternal or athletic groups, or [...]
--- OUTSIDE RECORDS SUMMARY | 2022-08-20 00:45 | XMS_ITS | Encounter Summary ---
:2001 Author Organization [facility] Address [address] [place] [address] Care Team Providers Name Role Phone Unavailable Primary Care Provider Unavailable Encounter Details Date Type Department Care Team Description 07/28/2007 Hospital Encounter [facility] Provider, [...] or relatives? How often do you attend methodist or More than 4 times per year 04/05/2022 amish services? Do you belong to any clubs or Yes 04/05/2022 organizations such as methodist groups, unions, fraternal or athletic groups, or [...]
--- OUTSIDE RECORDS SUMMARY | 2022-08-20 00:45 | XMS_ITS | Encounter Summary ---
:2001 Author Organization [facility] Address [address] [place] [address] Care Team Providers Name Role Phone Unavailable Primary Care Provider Unavailable Encounter Details Date Type Department Care Team Description 06/22/2009 Hospital Encounter [facility] Daniel Bone M.D. [address] [place] [phone] (Wo rk) Social History Tobacco Use Types [...] More than 4 times per year 04/05/2022 nondenominational services? Do you belong to any clubs [...]
--- OUTSIDE RECORDS SUMMARY | 2022-08-20 00:45 | XMS_ITS | Encounter Summary ---
:2001 Author Organization [facility] Address [address] [place] [address] Care Team Providers Name Role Phone Unavailable Primary Care Provider Unavailable Encounter Details Date Type Department Care Team Description 01/24/2009 Hospital Encounter [facility] Daniel Bone M.D. [address] [place], [place] [phone] (Wo rk) Social History [...]
--- OUTSIDE RECORDS SUMMARY | 2022-08-20 00:45 | XMS_ITS | Encounter Summary ---
:[address] [facility] Address [address] [place] [address] Care Team Providers Name Role Phone Unavailable Primary Care Provider Unavailable Encounter Details Date Type Department Care Team Description 07/27/2009 Hospital Encounter [facility] Tom Espitia M.D. [address] [place] [phone] (Wo rk) Social History Tobacco Use Types [...] or relatives? How often do you attend restorationism or More than 4 times per year 04/05/2022 sabianist services? Do you belong to any clubs or Yes 04/05/2022 organizations such as restorationism groups, unions, fraternal or athletic groups, or [...] place to sleep or slept in a prison (including now)? Sex Assigned at Date Recorded Not on file documented as of this encounter Progress Notes Tom Espitia M.D. - 07/27/2009 4:55 PM CDT Report PATIENT: [id number] NAME: MACY ISIDRO ENCOUNTER: [id number] DATE OF : 01 SERVICE DATE: 07/27/09 PROVIDER: Tom Espitia MD LOCATION: CLINIC DESCRIPTION: H1N1 CHARGES: 31900 INFLUENZA H1N1 VACCINE [place] 54[address]56 INFLUENZA H1N1 VACCINE ADMIN NASAL DIAGNOSES: V04.81 ND FOR PROPHYLACTIC VACCIN AND INOCULATION, INFLUENZA DOCUMENT TEXT: H1N1 07/27/09 1655 - Confidential - Patient Name Macy Isidro 01 Patient Unit # [id number] Sex female Visit Date/Time 07/27/09 1655 Provider Tom Espitia MD Location CLINIC Visit Reason H1N1 _ Progress Note Visit Text Allergies: No Known Allergies Allergies per Inpatient Nursing Documentation: Health Maintenance was reviewed and updated. Age: 9 Reason for Visit: H1N1 BMI: kg/m2 at 1714. Source: [facility] AMCHXTRANSXSYS Document Id: [id number] Electronically signed by Conversion, [facility] Health And Safety Manager [id number] at 04/01/2017 10:33 PM CDT documented in this encounter Miscellaneous Notes Miscellaneous - Conversion, Historical Provider Ser - 04/17/2012 8:39 AM CDT General Message Document Contains Addenda Addendum by MITCHELL GUTIERREZ LPN on 17 April 2012 12:57:26 CDT left message that it is faxed Addendum by TOM ESPITIA MD on 17 April 2012 12:26:54 CDT From: TOM ESPITIA MD To: MADINA Mcguire Nurse; Sent: 04/17/2012 12:26:54 CDT Subject: FW: General Message Addendum by TOM ESPITIA MD on 17 April 2012 12:26:45 CDT Submitted: Order Order: amoxicillin (amoxicillin 500 mg oral tablet) 1 tab(s) PO 2xDay Qty: 20 tab(s) Duration: 10 day(s) Refills: 0 Substitutions Allowed Route To Pharmacy - [facility] Signed by TOM ESPITIA MD 04/17/2012 12:26:38 Addendum by TOM ESPITIA MD on 17 April 2012 12:26:30 CDT Submitted: Order Order: neomycin/polymyxin B/hydrocortisone otic (Cortisporin Otic suspension) 2 drop(s) Ears (Both) 4xDay Qty: 10 mL Refills: 0 Substitutions Allowed Route To Pharmacy - [facility] Signed by TOM ESPITIA MD Addendum by TOM ESPITIA MD on 17 April 2012 12:25:28 CDT Submitted: Order Order: amoxicillin (amoxicillin 500 mg oral tablet) 1 tab(s) PO 2xDay Qty: 20 tab(s) Duration: 10 day(s) Refills: 0 Substitutions Allowed Print - [id number] Signed by TOM ESPITIA MD Addendum by MITCHELL GUTIERREZ LPN on 17 April 2012 08:41:56 CDT From: MITCHELL GUTIERREZ LPN (MADINA Mcguire Nurse) To: TOM ESPITIA MD; Sent: 04/17/2012 08:41:56 CDT Subject: FW: General Message daughter has an ear infection? pain in ear tried using swimmers ear stuff and that hasn''t worked- red and swollen, dad was wondering if you would do an antibiotic, they are going [facility] vac tomorrow [facility] From: YONATHAN COWART (MADINA Mcguire) To: MADINA Mcguire Nurse; Sent: 04/17/2012 08:39:21 CDT Subject: General Message Source: [facility] [employer] Document Id: [id number] documented in this encounter Plan of Treatment Not on filedocumented as of this encounter Visit Diagnoses Not on filedocumented in this encounter
--- OUTSIDE RECORDS SUMMARY | 2022-08-20 00:45 | XMS_ITS | Encounter Summary ---
:2001 Author Organization [facility] Address [address] [place] [address] Care Team Providers Name Role Phone Unavailable Primary Care Provider Unavailable Encounter Details Date Type Department Care Team Description 06/08/2002 Hospital Encounter [facility] Provider, [...] or relatives? How often do you attend orthodox or More than 4 times per year 04/05/2022 pentecostalism services? Do you belong to any clubs or Yes 04/05/2022 organizations such as orthodox groups, unions, fraternal or athletic groups, [...]
--- OUTSIDE RECORDS SUMMARY | 2022-08-20 00:45 | XMS_ITS | Encounter Summary ---
:2001 Author Organization [facility] Address [address] [place] [address] Care Team Providers Name Role Phone Unavailable Primary Care Provider Unavailable Encounter Details Date Type Department Care Team Description 06/06/2006 Hospital Encounter [facility] Charlie Clement M.D. [address] [place] [phone] (Wo rk) Social History Tobacco [...]
--- OUTSIDE RECORDS SUMMARY | 2022-08-20 00:45 | XMS_ITS | Encounter Summary ---
:2001 Author Organization [facility] Address [address] [place] [address] Care Team Providers Name Role Phone Unavailable Primary Care Provider Unavailable Encounter Details Date Type Department Care Team Description 09/02/2002 Hospital Encounter [facility] Provider, [...] or relatives? How often do you attend christian or More than 4 times per year 04/05/2022 uatsdin services? Do you belong to any clubs or Yes 04/05/2022 organizations such as christian groups, unions, fraternal or athletic groups, or [...]
--- OUTSIDE RECORDS SUMMARY | 2022-08-20 00:45 | XMS_ITS | Encounter Summary ---
:2001 Author Organization [facility] Address [address] [place] [address] Care Team Providers Name Role Phone Unavailable Primary Care Provider Unavailable Encounter Details Date Type Department Care Team Description 11/19/2007 Hospital Encounter [facility] Provider, [...] More than 4 times per year 04/05/2022 catholic services? Do you belong to any [...]
--- OUTSIDE RECORDS SUMMARY | 2022-08-20 00:45 | XMS_ITS | Encounter Summary ---
:2001 Author Organization [facility] Address [address] [place] [address] Care Team Providers Name Role Phone Unavailable Primary Care Provider Unavailable Encounter Details Date Type Department Care Team Description 08/15/2005 Hospital Encounter [facility] Provider, Ralph monahan Social History Tobacco Use [...] or relatives? How often do you attend congregational or More than 4 times per year 04/05/2022 uatsdin services? Do you belong to any clubs or Yes 04/05/2022 organizations such as congregational groups, unions, fraternal or athletic groups, or [...]
--- OUTSIDE RECORDS SUMMARY | 2022-08-20 00:45 | XMS_ITS | Encounter Summary ---
:2001 Author Organization [facility] Address [address] [place] [address] Care Team Providers Name Role Phone Unavailable Primary Care Provider Unavailable Encounter Details Date Type Department Care Team Description 09/11/2010 Hospital Encounter [facility] Dom Mtz, D.P.M. [address] [place] [phone] (Wo rk) Social History Tobacco [...] or relatives? How often do you attend pentecostalism or More than 4 times per year 04/05/2022 pentecostal services? Do you belong to any clubs or Yes 04/05/2022 organizations such as pentecostalism groups, unions, fraternal or athletic groups, or [...] encounter Progress Notes Jean-Pierre Mtz D.P.M. - 09/11/2010 4:30 PM CST Report CLINIC NOTE [place], [place] PATIENT: [id number] NAME: MACY RESENDEZ ENCOUNTER: [id number] DATE OF : 01 SERVICE DATE: 09/11/10 PROVIDER: Jean-Pierre Mtz D.P.M LOCATION: CLINIC DESCRIPTION: 10 DAY CORRINE CHARGES: 77832 POST-OP FOLLOW-UP VISIT DIAGNOSES: V58.77 AFTERCARE POST SURGERY SKIN/SUBCU TISSUE, NEC DOCUMENT TEXT: Patient Age: 10 Report Dictation DICTATED BY: Jean-Pierre Mtz DPM DATE: 09/11/2010 PLAN: Will have patient continue with soak once a day. Leave area open at night. Cover during the day for 1 more week, then she can discontinue. Will follow up with her again p.r.n. SUBJECTIVE: One-week postop check ingrown nail removal and ENC left foot. Patient has no significant complaints; is doing quite well. OBJECTIVE: P and A ENC sites are healing very nicely. CHEMA:amaury cc: Rooming Doc Patient History Social History Marital Status: single Tobacco use or exposure? N Any user of caffeine? N Any recent travel? Y Travel Region(s): [place] Surgery and Event History Nail Surgery, 09/01/10 Vitals Additional Vitals Information Pain: N Diabetes: N Information provided by: PATIENT Accompanied by: FATHER Chief Complaint: 10 DAY CORRINE LEFT at 0724. [facility] [employer] Document Id: [id number] Electronically signed by Max [facility] Ruby Developer [id number] at 04/02/2017 10:46 AM CDT documented in this encounter Plan of Treatment Not on filedocumented as of this encounter Visit Diagnoses Not on filedocumented in this encounter
--- OUTSIDE RECORDS SUMMARY | 2022-08-20 00:45 | XMS_ITS | Encounter Summary ---
:2001 Author Organization [facility] Address [address] [place] [address] Care Team Providers Name Role Phone Unavailable Primary Care Provider Unavailable Encounter Details Date Type Department Care Team Description 09/03/2006 Hospital Encounter [facility] Provider, [...] or relatives? How often do you attend faith or More than 4 times per year 04/05/2022 church services? Do you belong to any clubs or Yes 04/05/2022 organizations such as faith groups, unions, fraternal or athletic groups, or [...]
--- OUTSIDE RECORDS SUMMARY | 2022-08-20 00:45 | XMS_ITS | Encounter Summary ---
:2001 Author Organization [facility] Address [address] [place] [address] Care Team Providers Name Role Phone Unavailable Primary Care Provider Unavailable Encounter Details Date Type Department Care Team Description 07/27/2011 Hospital Encounter [facility] Clari Cota M.D. [address] [place] [phone] (Wo rk) Social History Tobacco Use Types [...] More than 4 times per year 04/05/2022 denominational services? Do you belong to any clubs [...] Encounter - Conversion, Historical Provider Ser - 04/17/2012 8:32 AM CDT Phone Message Document Contains Addenda Addendum by OSCAR RAMOS RN on 17 April 2012 10:10:56 CDT No call through at this time. From: DENNIS Arango ([facility]) To: [facility] Nurse; Sent: 04/17/2012 08:32:48 CDT Subject: Phone Message Caller is: ( ) Patient ( ) Mother ( Alfonso ) Father ( ) Spouse ( ) Daughter ( ) Son ( ) Pharmacy ( ) Other: Physician:tom cota Patient MRN #: Reason for Call: Message: Advice/Action: Source used: ( ) Verbalizes understanding [...] back cell phone number ( ) [facility] [employer] Document Id: [id number] documented in this encounter Plan of Treatment Not on filedocumented as of this encounter Visit Diagnoses Not on filedocumented in this encounter
--- OUTSIDE RECORDS SUMMARY | 2022-08-20 00:45 | XMS_ITS | Encounter Summary ---
:2001 Author Organization [facility] Address [address] [place] [address] Care Team Providers Name Role Phone Unavailable Primary Care Provider Unavailable Encounter Details Date Type Department Care Team Description 08/27/2005 Hospital Encounter [facility] Provider, [...]
--- OUTSIDE RECORDS SUMMARY | 2022-08-20 00:45 | XMS_ITS | Encounter Summary ---
:2001 Author Organization [facility] Address [address] [place] [address] Care Team Providers Name Role Phone Unavailable Primary Care Provider Unavailable Encounter Details Date Type Department Care Team Description 09/01/2010 Hospital Encounter [facility] Dom Mtz, D.P.M. [address] [place] [phone] (Wo rk) Social History Tobacco [...] encounter Progress Notes Jean-Pierre Mtz D.P.M. - 09/01/2010 3:05 PM CST Report CLINIC NOTE [place], [place] PATIENT: [id number] NAME: MACY ISIDRO ENCOUNTER: [id number] DATE OF : 01 SERVICE DATE: 09/01/10 PROVIDER: Jean-Pierre Mtz D.P.M LOCATION: CLINIC DESCRIPTION: P/A L HALLUX & E/C L HEEL CHARGES: 69244 DESTROY BENIGN LESION (INCL WART) 1-14 16135 REMOVAL OF NAIL BED DIAGNOSES: 681.11 ONYCHIA OF TOE 078.12 PLANTAR WART DOCUMENT TEXT: Patient Age: 10 Report Dictation DICTATED BY: Jean-Pierre Mtz DPM DATE: 09/01/2010 P[facility] CL[facility] PROCEDURE: The patient is a 10-year-old female. The universal protocol was followed with correct procedure verified, correct patient verified, site not marked because I was continuously in the room, and a pause was done prior to the procedure. Left hallux partial nail avulsion, both borders, and left foot verrucae removal via electrodesiccation and curettage under local block of 3 cc 2% Xylocaine and 0.5% Marcaine plain to the verrucae, 3 cc to the left hallux. The foot was then prepped and draped in the usual customary septic technique. Attention was then directed to the hallux, where the nail borders were removed in toto. Phenol was applied to the nail matrix, with curetment in between each application. A total of 3 applications was done, with 30 seconds per application. The areas were then flushed with copious amounts of alcohol, dressed with Silvadene cream, sterile 2 x 2, and Man wrap. Attention was directed to the left plantar medial heel, where a single verrucous lesion was noted. This was removed with curet. The base was treated with hyperfulguration at a setting of 12 biswas, 3 passes were done, with curetment in between each pass. This was then dressed with Silvadene cream, sterile 2 x 2, and Man wrap. Written and oral posttreatment instructions were given. The patient will be followed up again in 13 weeks, sooner if problems arise. CHEMA:amy cc: Rooming Doc Patient History Social History Marital Status: single Tobacco use or exposure? N Any user of caffeine? N Any recent travel? Y Travel Region(s): [place] Vitals Additional Vitals Information Pain: N Diabetes: N Information provided by: PARENTS Accompanied by: PARENTS Chief Complaint: PT PRESENTS TODAY FOR P&A PROCEDURE L HALLUX BORDERS AND E&C VERRUCA REMOVAL L FOOT. CONSENT SIGNED BY MOTHER. UNIVERSAL PROTOCOL CHECKLIST COMPLETED. ORAL AND WRITTEN INSTRUCTIONS GIVEN TO PARENTS THEY VERBALIZE UNDERSTANDING. FOLLOW UP APPOINTMENT MADE WITH PT. Learning Needs and Education Barriers to Learning No Topic(s) Post-Procedure Instructio Education Outcome Verbalized understanding [facility] Protocol Checklist Patient/Proc/Site Consistent Surgical Procedure P&A L HALLUX BORDERS, E&C VERRUCA REMOVAL L FOOT Verified patient id name & Yes Patient/guardian verbalizes an yes Pertinent medical record repor yes Surgical Consent Form yes Special equipment or implants not applicable Patient positioned correctly Yes Time Out tool placed Yes Provider's initials marked ove not applicable TIME OUT immediately before st Yes final verification of correct Yes x-rays displayed appropriately not applicable Nurse/Staff: Anya ALVA LPN Orders Medications and Procedures Prescriptions: New - Silver Sulfadiazine 1% (Silvadene) 1 % TUBE, 09/01/10 1 Application TOPICAL every day, #20 Gram, Refills 0 Dx - VIRAL WARTS, UNSPECIFIED Active - Mupirocin (Bactroban Cream) 2 % TUBE, 11/07/07 1 Application TOPICAL 3 times every day, #15 Gram, Refills 1 Budesonide (Pulmicort Respule) 0.5 MG/2 ML NEBULE, 07/28/07 0.5 Milligrams INHALATION twice a day, #30 Nebule, Refills 3 Albuterol 0.083 % NEBULE, 07/28/07 2.5 Milligrams INHALATION every 4 to 6 hours as needed, #25 Nebule, Refills 0 at 1158. [facility] Document Id: [id number] Electronically signed by Conversion, [facility]tr[facility] Footwear Sales Leader [id number] at 03/03/2017 8:08 AM CDT documented in this encounter Plan of Treatment Not on filedocumented as of this encounter Visit Diagnoses Not on filedocumented in this encounter
[2022-08-20 00:47] VITALS: BP 125/84; PULSE 105; RESP 18; TEMP 36.7
[2022-08-20 00:48] VITALS: BP 118/74; PULSE 99; RESP 18; TEMP 36.9; O2SAT 99
== END 2022-08-20 00:48 | disposition home or self-care (01) ==
LOC: ED 00:41
PROVIDERS: Emergency Provider Internal Medicine
DX: F32.A Depression, unspecified (principal)
CPT/HCPCS: 99282; 99283